=== PATIENT | female | born 1955 | race African-American/Black ===

== ENCOUNTER → 2016-09-28 | Outpatient (CLI) | payer OTHER ==
[2016-05-14 13:23] VITALS: BP 132/78
[2016-09-28 17:24] LABS: EOSINOPHILS # (AUTO) 0.1 x10^3/uL (0.0-0.2); EOSINOPHILS % (AUTO) 1.3 % (0.9-2.9); HEMATOCRIT 43.1 % (36.0-47.0); LYMPHOCYTES # (AUTO) 1.2 X10^3/uL (1.3-2.9); LYMPHOCYTES % (AUTO) 29.9 % (21.0-51.0); MEAN CORPUSCULAR HEMOGLOBIN 29.1 pg (27.0-34.0); MEAN CORPUSCULAR HGB CONC 32.6 g/dL (33.0-35.0); MEAN CORPUSCULAR VOLUME 89.4 fL (80.0-100.0); MEAN PLATELET VOLUME 8.3 fL (7.4-11.0); MONOCYTES # (AUTO) 0.5 x10^3/uL (0.3-0.8); MONOCYTES % (AUTO) 12.8 % (0.0-13.0); NEUTROPHILS # (AUTO) 2.3 x10^3/uL (2.2-4.8); PLATELET COUNT 132 X10^3/uL (150.0-450.0); RED BLOOD COUNT 4.81 X10^6/uL (3.5-5.4); RED CELL DISTRIBUTION WIDTH 16.5 % (11.6-16.5); WHITE BLOOD COUNT 4.1 X10^3/uL (3.6-10.0)
[2016-09-28 17:36] LABS: ALBUMIN 3.2 g/dL (3.4-5.0); BILIRUBIN,DIRECT 0.75 mg/dL (0-0.2); TOTAL PROTEIN 7.4 g/dL (6.4-8.2)
== END ==
LOC: LAB 16:46
PROVIDERS: ATTEND Internal Medicine Gastroenterology
DX: K74.69 Other cirrhosis of liver (principal); B18.2 Chronic viral hepatitis C
CPT/HCPCS: 36415; 80076; 85025

== ENCOUNTER → 2016-12-27 | Outpatient (CLI) | payer OTHER ==
[2016-05-14 13:23] VITALS: BP 132/78
== END ==
LOC: LAB 13:32
PROVIDERS: ATTEND Podiatrist
DX: M85.872 Other specified disorders of bone density and structure, left ankle and foot (principal)
CPT/HCPCS: 36415; 82306; 82652

== ENCOUNTER 2017-01-05 14:43 | Emergency (ER) | payer OTHER ==
[2017-01-05 14:51] VITALS: BP 145/68; BMI 25.3
[2017-01-05] MEDS ORDERED: MORPHINE SULFATE INJ 4 MG IVP ONE (15:08)
[2017-01-05] MEDS ORDERED: PHENERGAN INJ 25 MG IV ONE (15:08)
[2017-01-05] MEDS ORDERED: MORPHINE SULFATE INJ 4 MG ONE (15:13)
[2017-01-05] MEDS ORDERED: PHENERGAN INJ 25 MG ONE (15:13)
--- NOTE | 2017-01-05 15:15 | DR.EXTPAIN ---
HPI - Time seen Time seen: 15:00 - PCP Primary Care Physician: ANUSHA - Complaint/Symptoms Chief Complaint Doctor Comments: Patient unable to get pain medication for surgery done previously Chief Complaint:: PT. HAD A BUNIONECTOMY TO LEFT FOOT LAST TUESDAY PER DR. CHILDRESS. PT. C/O LEFT FOOT PAIN WHICH HAS WORSENED. LEFT FOOT IS WRAPPED WITH KOBAN AND PT. IS WEARING A POST OP BOOT. - Source History Provided: Patient - Mode of arrival Mode of Arrival: EMS - Timing Onset of Chief Complaint: 12/29/16 PMH - PMH Past Medical History: Yes Past Medical History: Anemia, Arthritis, Asthma, Cirrhosis, COPD, GERD Past Surgical History: Yes Surgical History: Hysterectomy, Joint Replacement, Ortho Surgery - Family History History of Family Medical Conditions: Yes Family Medical History: Diabetes Mellitus, Cancer, [place], Heart Failure, Hypertension - Social History Does patient currently use any type of tobacco product: No Have you used tobacco products in the last 12 months: No Type of Tobacco Use: None Does any household member use tobacco: No Alcohol Use: None Do you use any recreational Drugs:: No Lives With: Alone Lives Where: Home - infectious screening In the last 2 months have you had wt loss of >10#?: NO Have you had fever, night sweats or hemotysis?: No Have you traveled outside the country in the last 6 months?: No Isolation: Standard ROS - Review of Systems Eyes: No Symptoms Reported ENTM: No Symptoms Reported Respiratoy: No Symptoms Reported Cardiovascular: No Symptoms Reported Gastrointestinal/Abdominal: No Symptoms Reported Genitourinary: No Symptoms Reported Neurological: No Symptoms Reported Musculoskeletal: Foot (left ) Integumentary: No Symptoms Reported Hematologic/Lymphatic: No Symptoms Reported Endocrine: No Symptoms Reported Psychiatric: No Symptoms Reported All Other Systems: Reviewed and Negative PE - Vital Signs Vitals: Temperature 98.2 F Pulse Rate 75 Respiratory Rate 22 Blood Pressure [Right Arm] 140/67 Blood Pressure [Left Arm] 125/58 Blood Pressure 145/68 O2 Sat by Pulse Oximetry 97 - General General Appearance: Alert, In No Apparent Distress - Head Head Exam: Normal Inspection, Atraumatic - Eyes Eye exam: Normal Appearance, PERRL, EOMI - ENT ENT Exam: Normal Exam - Neck Neck Exam: Normal Inspection, Full ROM - Chest Chest Inspection: Normal Inspection - Respiratory Respiratory Exam: Normal Lung Sounds Bilat Respiratory Exam: Bilateral Clear to Auscultation - Cardiovascular Cardiovascular Exam: Regular Rate, Normal Rhythm - Abdominal Exam Abdominal Exam: Normal Inspection, Normal Bowel Sounds Abdominal Tenderness: negative: RUQ, RLQ, LUQ, LLQ, Epigastrium, Suprapubic, Diffuse, Mild, Moderate, Severe, Other - Extremities Extremities Exam: Normal Inspection - Upper Extremities Shoulder Exam: Normal Inspection Arm Exam: Normal Inspection, Full ROM Elbow Exam: Normal Inspection Forearm Exam: Normal Inspection Hand Exam: Normal Inspection Neuromotor Exam: Normal Exam Neurosensory Exam: Normal Exam Hand Tendon Exam: Flexor Digitorium Profundus (Location) Upper Ext. Vascular Exam: Capillary Refill - Lower Extremities Hip/Pelvis Exam: Normal Inspection Upper Leg Exam: Normal Inspection Knee Exam: Normal Inspection Lower Leg Exam: Normal Inspection Ankle Exam: Normal Inspection Foot/Toe Exam: Normal Inspection Neurovascular/Tendon Exam: Normal Capillary Refill Gait Exam: Observed and Normal - Back Back Exam: Normal Inspection - Neurological Neurological Exam: Alert, Oriented X3, CN II-XII Intact - Skin Skin Exam: Warm, Dry, Intact - Diagnosis Discharge Problem: Acute postoperative pain of foot Qualifiers: Laterality: left Qualified Code(s): M79.672 - Pain in left foot; G89.18 - Other acute postprocedural pain - Discharge Plan Condition: Stable - Follow ups/Referrals Follow ups/Referrals: Jj Butts [Primary Care Provider] - 3 days - Instructions
== END 2017-01-05 15:51 | disposition home or self-care (01) ==
LOC: ER 14:44
DX: M79.672 Pain in left foot (principal); G89.18 Other acute postprocedural pain; Z98.890 Other specified postprocedural states
CPT/HCPCS: 96365; 96374; 96375; 99282; 99283; J2270; J2550

== ENCOUNTER → 2017-01-12 | Outpatient (CLI) | payer OTHER ==
[2017-01-05 14:51] VITALS: BP 145/68
[2017-01-12 09:52] LABS: BASOPHILS # (AUTO) 0.1 X10^3/uL (0.0-0.1); BASOPHILS % (AUTO) 2.3 % (0.2-1.0); EOSINOPHILS # (AUTO) 0.1 x10^3/uL (0.0-0.2); EOSINOPHILS % (AUTO) 2.7 % (0.9-2.9); HEMATOCRIT 40.3 % (36.0-47.0); HEMOGLOBIN 13.4 g/dL (12.0-16.0); LYMPHOCYTES # (AUTO) 1.2 X10^3/uL (1.3-2.9); LYMPHOCYTES % (AUTO) 40.6 % (21.0-51.0); MEAN CORPUSCULAR HGB CONC 33.2 g/dL (33.0-35.0); MEAN CORPUSCULAR VOLUME 90.3 fL (80.0-100.0); MEAN PLATELET VOLUME 8.4 fL (7.4-11.0); MONOCYTES # (AUTO) 0.5 x10^3/uL (0.3-0.8); MONOCYTES % (AUTO) 16.4 % (0.0-13.0); NEUTROPHILS # (AUTO) 1.1 x10^3/uL (2.2-4.8); PLATELET COUNT 142 X10^3/uL (150.0-450.0); RED BLOOD COUNT 4.47 X10^6/uL (3.5-5.4); RED CELL DISTRIBUTION WIDTH 16.1 % (11.6-16.5); WHITE BLOOD COUNT 2.9 X10^3/uL (3.6-10.0)
[2017-01-12 10:20] LABS: ALANINE AMINOTRANSFERASE 55 Units/L (12-78); ALKALINE PHOSPHATASE 147 Units/L (46-116); ASPARTATE AMINO TRANSFERASE 77 Units/L (15-37); BILIRUBIN,DIRECT 0.52 mg/dL (0-0.2); BLOOD UREA NITROGEN 5 mg/dL (7-18); CALCIUM 8.8 mg/dL (8.5-10.1); CHLORIDE 105 mmol/L (98-107); CHOL/HDL RATIO 1.9 (0.0-5.0); CHOLESTEROL 141 mg/dL (0-200); COR CA(FOR HYPOALB) 9.6 mg/dL (8.5-10.1); CREATININE 0.63 mg/dL (0.55-1.02); GLUCOSE 69 mg/dL (65-99); HDL CHOLESTEROL 75 mg/dL (40-60); PHOSPHORUS 3.2 mg/dL (2.6-4.7); SODIUM 141 mmol/L (136-145); TOTAL PROTEIN 7.1 g/dL (6.4-8.2); TRIGLYCERIDES 26 mg/dL (0-150); URIC ACID 1.2 mg/dL (2.6-6.0); eGFR BLACK RACES > 60 (>60); eGFR NON BLACK RACES > 60 (>60)
[2017-01-12 11:05] LABS: ERYTHROCYTE SEDIMENTATION RATE 8 MM/HOUR (0-20)
[2017-01-17 06:45] LABS: METHYLMALONIC ACID 0.12 umol/L (0.00-0.40)
== END ==
LOC: LAB 09:04
PROVIDERS: ATTEND Nurse Practitioner Family
DX: E78.4 Other hyperlipidemia (principal); M10.9 Gout, unspecified; E56.8 Deficiency of other vitamins; K74.69 Other cirrhosis of liver; I10 Essential (primary) hypertension; D53.9 Nutritional anemia, unspecified; Z79.899 Other long term (current) drug therapy
CPT/HCPCS: 36415; 80061; 80069; 80076; 82306; 82607; 83918; 84550; 85025; 85652; 86140

== ENCOUNTER 2017-02-28 12:36 | Emergency (ER) | payer OTHER ==
[2017-02-28 12:48] VITALS: BP 102/63; BMI 24.3
[2017-02-28 13:47] LABS: APPEARANCE,URINE SLIGHTLY HAZY (CLEAR); BACTERIA,URINE Negative /HPF (Negative); COLOR,URINE ORANGE (YELLOW); RBC,URINE NONE SEEN /HPF (NEGATIVE); SQUAMOUS EPITHELIAL CELL,UR RARE /HPF (NEGATIVE)
--- NOTE | 2017-02-28 13:50 | DR.GENAD ---
HPI - PCP Primary Care Physician: MARGOT SORIANO - Complaint/Symptoms Chief Complaint Doctors Comments: I agree with statement Chief Complaint:: KIDNEY INFECTION Self Treatment fo Chief Complaint: PT STATES SHE HAS BEEN HURTING FOR A WHILE. STATES SHE SAW DINAH AND HAS BEEN TAKING BACTRIM SINCE 02/22/17. ALSO HAS BEEN TAKING PHENAZOPYRIDINE HCL 95MG TID - Source History Provided: Patient - Mode of Arrival Mode of Arrival: Ambulatory - Timing Onset of Chief Complaint: 02/28/17 PMH - PMH Past Medical History: Yes Past Medical History: Anemia, Arthritis, Asthma, COPD, GERD Past Surgical History: Yes Surgical History: Hysterectomy, Joint Replacement, Ortho Surgery - Family History History of Family Medical Conditions: Yes Family Medical History: Diabetes Mellitus, Cancer, [place], Heart Failure, Hypertension - Social History Does patient currently use any type of tobacco product: No Have you used tobacco products in the last 12 months: No Type of Tobacco Use: None Does any household member use tobacco: No Alcohol Use: None Do you use any recreational Drugs:: No Lives With: Alone Lives Where: Home - infectious screening In the last 2 months have you had wt loss of >10#?: NO Have you had fever, night sweats or hemotysis?: No Have you traveled outside the country in the last 6 months?: No Isolation: Standard ROS - Review of Systems Eyes: No Symptoms Reported ENTM: No Symptoms Reported Respiratoy: No Symptoms Reported Cardiovascular: No Symptoms Reported Gastrointestinal/Abdominal: No Symptoms Reported Genitourinary: No Symptoms Reported Neurological: No Symptoms Reported Musculoskeletal: No Symptoms Reported Integumentary: No Symptoms Reported Hematologic/Lymphatic: No Symptoms Reported Endocrine: No Symptoms Reported Psychiatric: No Symptoms Reported All Other Systems: Reviewed and Negative PE - Vital Signs Vitals: Temperature 98.7 F Pulse Rate 76 Respiratory Rate 20 Blood Pressure [Right Arm] 140/67 Blood Pressure [Left Arm] 125/58 Blood Pressure 102/63 O2 Sat by Pulse Oximetry 95 - General Limitations: No Limitations General Appearance: Alert, In No Apparent Distress - Head Head Exam: Normal Inspection, Atraumatic - Eyes Eye exam: Normal Appearance, PERRL, EOMI - ENT ENT Exam: Normal Exam External Ear Exam: Normal External Inspection TM/Canal Exam: Bilateral Normal Nose Exam: Normal Nose Exam Mouth Exam: Normal Inspection Throat Exam: Normal Inspection - Neck Neck Exam: Normal Inspection - Chest Chest Inspection: Normal Inspection - Respiratory Respiratory Exam: Normal Lung Sounds Bilat Respiratory Exam: Bilateral Clear to Auscultation - Cardiovascular Cardiovascular Exam: Regular Rate, Normal Rhythm - Abdominal Exam Abdominal Exam: Normal Inspection, Normal Bowel Sounds Abdominal Tenderness: negative: RUQ, RLQ, LUQ, LLQ, Epigastrium, Suprapubic, Diffuse, Mild, Moderate, Severe, Other - Extremities Extremities Exam: Normal Inspection - Back Back Exam: Normal Inspection, Full ROM - Neurologic Neurological Exam: Alert, Oriented X3, CN II-XII Intact - Skin Skin Exam: Warm, Dry, Intact Course - Reevaluation 1st: Improved ROR - Labs Reviewed Laboratory: Specimen Type Clean catch urine 02/28/17 13:26 Urine Color [place] (YELLOW) 02/28/17 13:26 Urine Appearance Slightly hazy (CLEAR) 02/28/17 13:26 Urine RBC None seen /HPF (NEGATIVE) 02/28/17 13:26 Urine WBC Tntc /HPF (NEGATIVE) 02/28/17 13:26 Ur Squamous Epith Cells Rare /HPF (NEGATIVE) 02/28/17 13:26 Urine Bacteria Negative /HPF (Negative) 02/28/17 13:26 Ur Culture Indicated? Yes/culture set up 02/28/17 13:26 Micro UA Comment Unable to perform (-) 02/28/17 13:26 - Diagnosis Discharge Problem: UTI (urinary tract infection) Qualifiers: Urinary tract infection type: acute cystitis Hematuria presence: without hematuria Qualified Code(s): N30.00 - Acute cystitis without hematuria - Discharge Plan Condition: Stable - Follow ups/Referrals Follow ups/Referrals: FABIOLA SORIANO [Primary Care Provider] - 3 days - Instructions
[2017-02-28] MEDS ORDERED: LEVAQUIN PREMIX IV 750 MG 750 MG/150 ML BAG IV ONE ×2 (14:16→14:23)
[2017-02-28] MEDS ORDERED: NS 1000 ML 500 ML IV ONE (14:18)
[2017-02-28] MEDS ORDERED: PYRIDIUM PO ONE ×2 (14:23)
[2017-02-28] MEDS ORDERED: NS 1000 ML 1,000 ML ONE (14:54)
== END 2017-02-28 16:49 | disposition home or self-care (01) ==
LOC: ER 12:58
DX: N30.00 Acute cystitis without hematuria (principal)
CPT/HCPCS: 81015; 87086; 96365; 96367; 96374; 99283; A4222; J1956

== ENCOUNTER 2017-03-02 18:41 | Emergency (ER) | payer OTHER ==
--- NOTE | 2017-03-02 18:52 | DR.GENAD ---
HPI - Complaint/Symptoms Chief Complaint Doctors Comments: Patient presents with to the ED with complaint severe stomach pain onset today just prior to arrival. Pain is sharp 10/10, not aggravated by movement, sharp. PMH - PMH Past Medical History: Anemia, Arthritis, Asthma, COPD, GERD Past Surgical History: Yes Surgical History: Hysterectomy, Joint Replacement, Ortho Surgery - Family History Family Medical History: Diabetes Mellitus, Cancer, [place], Heart Failure, Hypertension - Social History Do you use any recreational Drugs:: No ROS - Review of Systems Eyes: No Symptoms Reported ENTM: No Symptoms Reported Respiratoy: No Symptoms Reported Cardiovascular: No Symptoms Reported Gastrointestinal/Abdominal: Abdominal Pain Genitourinary: No Symptoms Reported Neurological: No Symptoms Reported Musculoskeletal: No Symptoms Reported Integumentary: No Symptoms Reported Hematologic/Lymphatic: No Symptoms Reported Endocrine: No Symptoms Reported Psychiatric: No Symptoms Reported All Other Systems: Reviewed and Negative PE - Vital Signs Vitals: Temperature 98.2 F Pulse Rate 77 Respiratory Rate 20 Blood Pressure [Right Arm] 140/67 Blood Pressure [Left Arm] 125/58 Blood Pressure 130/72 O2 Sat by Pulse Oximetry 97 - General Limitations: No Limitations General Appearance: Alert, In No Apparent Distress - Head Head Exam: Normal Inspection, Atraumatic - Eyes Eye exam: Normal Appearance, PERRL, EOMI - ENT ENT Exam: Normal Exam, Normal Oropharynx External Ear Exam: Normal External Inspection TM/Canal Exam: Bilateral Normal Nose Exam: Normal Nose Exam, Sinus Tenderness Mouth Exam: Normal Inspection Throat Exam: Normal Inspection - Neck Neck Exam: Normal Inspection - Chest Chest Inspection: Normal Inspection - Respiratory Respiratory Exam: Normal Lung Sounds Bilat Respiratory Exam: Bilateral Clear to Auscultation - Cardiovascular Cardiovascular Exam: Regular Rate, Normal Rhythm - Abdominal Exam Abdominal Exam: Normal Inspection, Normal Bowel Sounds Abdominal Tenderness: RLQ - Back Back Exam: (R) CVA Tenderness - Neurologic Neurological Exam: Alert, Oriented X3, CN II-XII Intact - Psychiatric Psychiatric Exam: Normal Affect ROR - Labs Reviewed Laboratory Results Reviewed?: Yes (H pylori positive) Result Diagrams: 03/02/17 19:12 03/02/17 19:12 Laboratory: WBC 6.8 X10^3/uL (3.6-10.0) 03/02/17 19:12 RBC 4.33 X10^6/uL (3.5-5.4) 03/02/17 19:12 Hgb 13.5 g/dL (12.0-16.0) 03/02/17 19:12 Hct 39.2 % (36.0-47.0) 03/02/17 19:12 MCV 90.5 fL (80.0-100.0) 03/02/17 19:12 MCH 31.2 pg (27.0-34.0) 03/02/17 19:12 MCHC 34.4 g/dL (33.0-35.0) 03/02/17 19:12 RDW 15.7 % (11.6-16.5) 03/02/17 19:12 Plt Count 194 X10^3/uL (150.0-450.0) 03/02/17 19:12 MPV 8.7 fL (7.4-11.0) 03/02/17 19:12 Neut % 67.4 % (42.0-75.0) 03/02/17 19:12 Lymph % 17.9 % (21.0-51.0) L 03/02/17 19:12 [place] % 12.6 % (0.0-13.0) 03/02/17 19:12 Eos % 0.9 % (0.9-2.9) 03/02/17 19:12 Baso % 1.2 % (0.2-1.0) H 03/02/17 19:12 Neut # 4.6 x10^3/uL (2.2-4.8) 03/02/17 19:12 Lymph # 1.2 X10^3/uL (1.3-2.9) L 03/02/17 19:12 [place] # 0.9 x10^3/uL (0.3-0.8) H 03/02/17 19:12 Eos # 0.1 x10^3/uL (0.0-0.2) 03/02/17 19:12 Baso # 0.1 X10^3/uL (0.0-0.1) 03/02/17 19:12 Absolute Nucleated RBC 0.0 /100WBC 03/02/17 19:12 Sodium 133 mmol/L (136-145) L 03/02/17 19:12 Corrected Sodium TNP 03/02/17 19:12 Potassium 3.5 mmol/L (3.5-5.1) 03/02/17 19:12 Chloride 98 mmol/L (98-107) 03/02/17 19:12 Carbon Dioxide 25.0 mmol/L (21-32) 03/02/17 19:12 BUN 10 mg/dL (7-18) 03/02/17 19:12 Creatinine 0.77 mg/dL (0.55-1.02) 03/02/17 19:12 Est GFR (MDRD) Af Amer > 60 (>60) 03/02/17 19:12 Est GFR (MDRD) Non-Af > 60 (>60) 03/02/17 19:12 Glucose 82 mg/dL (65-99) 03/02/17 19:12 Calcium 9.4 mg/dL (8.5-10.1) 03/02/17 19:12 Corrected Calcium 10.0 mg/dL (8.5-10.1) 03/02/17 19:12 Total Bilirubin 3.50 mg/dL (0.2-1.0) H 03/02/17 19:12 AST 54 Units/L (15-37) H 03/02/17 19:12 ALT 27 Units/L (12-78) 03/02/17 19:12 Alkaline Phosphatase 135 Units/L (46-116) H 03/02/17 19:12 C-Reactive Protein 29.20 mg/L (0-3.0) H 03/02/17 19:12 Total Protein 7.6 g/dL (6.4-8.2) 03/02/17 19:12 Albumin 3.2 g/dL (3.4-5.0) L 03/02/17 19:12 Globulin 4.4 g/dL (2.5-4.5) 03/02/17 19:12 Albumin/Globulin Ratio 0.7 Ratio (1.1-2.1) L 03/02/17 19:12 Lipase 142 Units/L (73-393) 03/02/17 19:12 H. pylori IgG Antibody Positive (NEGATIVE) A 03/02/17 19:12 - XRAY XRAY Interpreted by: Radiologist (CT: Abdo/pelv:No Ct evidence of acute abdominal/pelvic pathology.2.Constellation of findings representing cirrhosis of the liver and portal hypertension. No significant ascities or obvious liver lesion.) - Diagnosis Discharge Problem: Helicobacter pylori gastritis - Discharge Plan Condition: Good - Follow ups/Referrals Follow ups/Referrals: Jj Butts [Primary Care Provider] - 3 days - Instructions
[2017-03-02 18:54] VITALS: BP 130/72; BMI 22.6
[2017-03-02] MEDS ORDERED: MORPHINE SULFATE INJ 4 MG IVP ONE (18:55)
[2017-03-02] MEDS ORDERED: NS 1000 ML 1,000 ML ONE (18:57)
[2017-03-02] MEDS ORDERED: NS 1000 ML 1,000 ML IV SCH (19:00)
[2017-03-02] MEDS ORDERED: MORPHINE SULFATE INJ 4 MG ONE (19:14)
[2017-03-02 19:20] LABS: BASOPHILS # (AUTO) 0.1 X10^3/uL (0.0-0.1); BASOPHILS % (AUTO) 1.2 % (0.2-1.0); EOSINOPHILS # (AUTO) 0.1 x10^3/uL (0.0-0.2); EOSINOPHILS % (AUTO) 0.9 % (0.9-2.9); HEMATOCRIT 39.2 % (36.0-47.0); HEMOGLOBIN 13.5 g/dL (12.0-16.0); LYMPHOCYTES # (AUTO) 1.2 X10^3/uL (1.3-2.9); LYMPHOCYTES % (AUTO) 17.9 % (21.0-51.0); MEAN CORPUSCULAR HEMOGLOBIN 31.2 pg (27.0-34.0); MEAN CORPUSCULAR HGB CONC 34.4 g/dL (33.0-35.0); MEAN CORPUSCULAR VOLUME 90.5 fL (80.0-100.0); MEAN PLATELET VOLUME 8.7 fL (7.4-11.0); MONOCYTES # (AUTO) 0.9 x10^3/uL (0.3-0.8); MONOCYTES % (AUTO) 12.6 % (0.0-13.0); NEUTROPHILS # (AUTO) 4.6 x10^3/uL (2.2-4.8); NEUTROPHILS % (AUTO) 67.4 % (42.0-75.0); PLATELET COUNT 194 X10^3/uL (150.0-450.0); RED BLOOD COUNT 4.33 X10^6/uL (3.5-5.4); RED CELL DISTRIBUTION WIDTH 15.7 % (11.6-16.5); WHITE BLOOD COUNT 6.8 X10^3/uL (3.6-10.0)
[2017-03-02 19:35] LABS: ALANINE AMINOTRANSFERASE 27 Units/L (12-78); ALBUMIN 3.2 g/dL (3.4-5.0); ALKALINE PHOSPHATASE 135 Units/L (46-116); ASPARTATE AMINO TRANSFERASE 54 Units/L (15-37); BLOOD UREA NITROGEN 10 mg/dL (7-18); CALCIUM 9.4 mg/dL (8.5-10.1); CHLORIDE 98 mmol/L (98-107); CREATININE 0.77 mg/dL (0.55-1.02); LIPASE 142 Units/L (73-393); SODIUM 133 mmol/L (136-145); TOTAL PROTEIN 7.6 g/dL (6.4-8.2); eGFR BLACK RACES > 60 (>60); eGFR NON BLACK RACES > 60 (>60)
[2017-03-02] MEDS ORDERED: MORPHINE SULFATE INJ 2 MG INJ IVP ONE (19:35)
[2017-03-02] MEDS ORDERED: MORPHINE SULFATE INJ 2 MG INJ ONE (19:38)
[2017-03-02] MEDS ORDERED: NS 100 ML IV 100 ML IV ONE (20:26)
--- NOTE | 2017-03-02 21:37 | CT ---
HISTORY: Abdominal pain. Study: CT abdomen and pelvis with contrast Comparison: CT abdomen/pelvis dated June 13, 2015. Technique: Multiple axial images of the abdomen and pelvis were obtained from the lung bases to the pubic symphy sis after the administration of IV contrast. Dose reduction techniques including Automated Exposure Control (AEC) and adjustment of mA and kV were utilized. Findings: Limited study secondary to lack of oral contrast. Bibasilar scarring versus atelectasis. Otherwise, the visualized portions of the lung bases are unrem arkable. Cirrhotic appearance of the liver is again seen. No obvious liver masses. Recannulization o f the umbilical vein. Multiple esophageal, gastric, and splenorenal varices. No obvious ascites. Smal l hiatal hernia. The gallbladder is surgically absent. The spleen, pancreas, adrenals, and kidneys ap pear normal. Large fat containing ventral hernia appears unchanged. No significant mesenteric lympha denopathy or stranding can be observed. No free fluid or free air is seen within the abdomen. Limit ed evaluation of the large and small bowel secondary to lack of oral contrast and collapse. The large and small bowel are otherwise unremarkable. The appendix is not well seen. The uterus and ovaries a ppear surgically absent. Limited evaluation of the pelvis secondary to bilateral hip arthroplasties. The visualized bladder is otherwise unremarkable. Moderate to severe atherosclerotic vascular calcif ications without evidence of aneurysmal dilatation. The visualized arthroplasties appear intact. The osseous structures appear unchanged given technique. IMPRESSION: 1. No CT evidence of acute abdominal/pelvic pathology. 2. Constellation of findings representing cirrhosis of the liver and portal hypertension. No signific ant ascites or obvious liver lesions. 3. Other chronic findings as above. Reported By:
== END 2017-03-02 22:22 | disposition home or self-care (01) ==
LOC: ER 18:45
DX: R10.31 Right lower quadrant pain (principal); B96.81 Helicobacter pylori [H. pylori] as the cause of diseases classified elsewhere
CPT/HCPCS: 36415; 74177; 80053; 83690; 85025; 86140; 86677; 96365; 96367; 96374; 96375; 99283; A4222; J2270

== ENCOUNTER 2017-03-05 10:43 | Inpatient (IN) | payer OTHER ==
[2017-03-05 10:56] VITALS: BMI 23.2
[2017-03-05] MEDS ORDERED: NS 1000 ML 1,000 ML IV ONE (11:14)
[2017-03-05] MEDS ORDERED: ZOFRAN INJ 4 MG VIAL IVP ONE (11:14)
[2017-03-05] MEDS ORDERED: MORPHINE SULFATE INJ 2 MG INJ IVP ONE (11:14)
--- NOTE | 2017-03-05 11:16 | DR.GENAD ---
HPI - PCP Primary Care Physician: ZURDO - Complaint/Symptoms Chief Complaint Doctors Comments: Patient complains of severe stomach pain with nausea, vomiting for the past five days getting worst today. She denies fever, chills, diarrhea or hematuria. States she is having left sided neck pain but her left shoulder is not hurting. States she is taking chemotherapy but she does not know wh she is taking it. She is unsure when she had her last bowel movement. States she is unable to keep anything down. She denies SOB or chest pain. Chief Complaint:: PT C/O SEVERE ABD PAIN WITH N/V. PT ALSO STATES SHE IS HAVING PAIN IN HER LT SHOULDER. PT STATES IT HAS BEEN GOING ON SINCE TUESDAY - Nurses notes reviewed Nurses Notes Review: Yes - Source History Provided: Patient, EMS - Mode of Arrival Mode of Arrival: EMS - Timing Onset of Chief Complaint: 02/28/17 Came on: Gradually - Duration Duration: Constant How lon Duration: Days - Location Location: diffuse abdominal pain - Severity Severity: Severe - Modifying Factors Worsens:: nothing Improves:: nothing PMH - PMH Past Medical History: Yes Past Medical History: Anemia, Arthritis, Asthma, COPD, GERD Past Surgical History: Yes Surgical History: Hysterectomy, Joint Replacement, Ortho Surgery - Family History History of Family Medical Conditions: Yes Family Medical History: Diabetes Mellitus, Cancer, [place], Heart Failure, Hypertension - Social History Does any household member use tobacco: No Alcohol Use: None Do you use any recreational Drugs:: No Lives With: Alone Lives Where: Home - infectious screening In the last 2 months have you had wt loss of >10#?: NO Have you had fever, night sweats or hemotysis?: No Have you traveled outside the country in the last 6 months?: No Isolation: Standard ROS - Review of Systems Constitutional: No Symptoms Reported, Weakness, Loss of Appetite. negative: See HPI, Chills, Diaphoresis, Fever, Malaise, Irritable, Fatigue, Other Eyes: No Symptoms Reported ENTM: No Symptoms Reported Respiratoy: No Symptoms Reported. negative: See HPI, Productive Cough, Non- Productive Cough, Moist Cough, Dry Cough, Hacking Cough, Barking Cough, Brassy Cough, Orthopnea, Short of Breath, Stridor, Wheezing, Hemoptysis, Other Cardiovascular: No Symptoms Reported, Palpitations. negative: See HPI, Chest Pain, Edema, Syncope, Cyanosis, Skin Mottling, Other Gastrointestinal/Abdominal: Abdominal Pain, Nausea, Vomiting. negative: No Symptoms Reported, See HPI, Constipation, Diarrhea, Food Intolerance, Other Genitourinary: No Symptoms Reported Neurological: No Symptoms Reported Musculoskeletal: No Symptoms Reported, Left, Neck Integumentary: No Symptoms Reported Hematologic/Lymphatic: No Symptoms Reported Endocrine: No Symptoms Reported, Decreased Appetite Psychiatric: No Symptoms Reported, Anxiety PE - Vital Signs Vitals: Temperature 99.1 F Pulse Rate 73 Respiratory Rate 20 Blood Pressure [Right Arm] 140/67 Blood Pressure [Left Arm] 125/58 Blood Pressure 119/55 O2 Sat by Pulse Oximetry 96 - General Limitations: No Limitations General Appearance: Alert, Anxious, In Distress (moderate) - Head Head Exam: Normal Inspection, Atraumatic, Normocephalic - Eyes Eye exam: Normal Appearance, PERRL, EOMI. negative: Scleral Icterus, Conjunctival Injection, Nystagmus, Miosis, Mydrasis, Periorbital Swelling, Periorbital Tenderness, Other - ENT ENT Exam: Normal Exam, Normal Oropharynx, Normal External Ear Exam, Mucous Membranes Moist, TM's Normal Bilaterally TM/Canal Exam: Bilateral Normal Nose Exam: Normal Nose Exam Mouth Exam: Normal Inspection Throat Exam: Normal Inspection - Neck Neck Exam: Normal Inspection, Full ROM, Trachea Midline, Tenderness (left lateral neck tenderness and tight musles; no swelling or erythema) - Chest Chest Inspection: Normal Inspection, Symmetric Chest Wall Rise - Respiratory Respiratory Exam: Normal Lung Sounds Bilat Respiratory Exam: Bilateral Clear to Auscultation - Cardiovascular Cardiovascular Exam: Regular Rate, Normal Rhythm, Tachycardia, Normal Heart Sounds, Systolic Murmur - Abdominal Exam Abdominal Exam: Normal Inspection, Normal Bowel Sounds, Soft, Tenderness, Guarding, Dimnished Bowel Sounds (ventral hernia; tender) Abdominal Tenderness: Epigastrium, Suprapubic, Moderate - Extremities Extremities Exam: Normal Inspection, Full ROM, Normal Capillary Refill. negative: Tenderness, Edema, Joint Swelling, Calf Tenderness, Other - Back Back Exam: Normal Inspection, Full ROM - Neurologic Neurological Exam: Alert, Oriented X3, CN II-XII Intact, Reflexes Normal. negative: Normal Gait (gait not tested) - Psychiatric Psychiatric Exam: Normal Affect, Normal Mood, Agitated, Anxious - Skin Skin Exam: Warm, Dry, Intact, Normal Color ROR - Labs Reviewed Laboratory Results Reviewed?: Yes (all labs and x-ray results reviewed and discussed with patient) Result Diagrams: 03/05/17 11:40 03/05/17 11:40 Laboratory: WBC 7.7 X10^3/uL (3.6-10.0) 03/05/17 11:40 RBC 4.08 X10^6/uL (3.5-5.4) 03/05/17 11:40 Hgb 12.7 g/dL (12.0-16.0) 03/05/17 11:40 Hct 37.9 % (36.0-47.0) 03/05/17 11:40 MCV 92.8 fL (80.0-100.0) 03/05/17 11:40 MCH 31.0 pg (27.0-34.0) 03/05/17 11:40 MCHC 33.4 g/dL (33.0-35.0) 03/05/17 11:40 RDW 17.1 % (11.6-16.5) H 03/05/17 11:40 Plt Count 140 X10^3/uL (150.0-450.0) L 03/05/17 11:40 MPV 8.5 fL (7.4-11.0) 03/05/17 11:40 Neut % 73.1 % (42.0-75.0) 03/05/17 11:40 Lymph % 11.9 % (21.0-51.0) L 03/05/17 11:40 [place] % 14.0 % (0.0-13.0) H 03/05/17 11:40 Eos % 0.4 % (0.9-2.9) L 03/05/17 11:40 Baso % 0.6 % (0.2-1.0) 03/05/17 11:40 Neut # 5.7 x10^3/uL (2.2-4.8) H 03/05/17 11:40 Lymph # 0.9 X10^3/uL (1.3-2.9) L 03/05/17 11:40 [place] # 1.1 x10^3/uL (0.3-0.8) H 03/05/17 11:40 Eos # 0.0 x10^3/uL (0.0-0.2) 03/05/17 11:40 Baso # 0.0 X10^3/uL (0.0-0.1) 03/05/17 11:40 Absolute Nucleated RBC 0.1 /100WBC 03/05/17 11:40 INR Target Range - 03/05/17 11:40 INR 1.23 (0.8-1.3) 03/05/17 11:40 PTT 27.9 SECONDS (22.9-36.5) 03/05/17 11:40 PTT Comment - 03/05/17 11:40 Sodium 139 mmol/L (136-145) 03/05/17 11:40 Corrected Sodium TNP 03/05/17 11:40 Potassium 3.3 mmol/L (3.5-5.1) L 03/05/17 11:40 Chloride 104 mmol/L (98-107) 03/05/17 11:40 Carbon Dioxide 27.1 mmol/L (21-32) 03/05/17 11:40 BUN 11 mg/dL (7-18) 03/05/17 11:40 Creatinine 0.93 mg/dL (0.55-1.02) 03/05/17 11:40 Est GFR (MDRD) Af Amer > 60 (>60) 03/05/17 11:40 Est GFR (MDRD) Non-Af > 60 (>60) 03/05/17 11:40 Glucose 95 mg/dL (65-99) 03/05/17 11:40 Calcium 9.6 mg/dL (8.5-10.1) 03/05/17 11:40 Corrected Calcium 10.5 mg/dL (8.5-10.1) H 03/05/17 11:40 Magnesium 1.7 mg/dL (1.7-2.9) 03/05/17 11:40 Total Bilirubin 2.50 mg/dL (0.2-1.0) H 03/05/17 11:40 AST 35 Units/L (15-37) 03/05/17 11:40 ALT 22 Units/L (12-78) 03/05/17 11:40 Alkaline Phosphatase 115 Units/L (46-116) 03/05/17 11:40 Creatine Kinase 36 Units/L (26-192) 03/05/17 11:40 CK-MB (CK-2) < 1.0 ng/mL (0-4.0) 03/05/17 11:40 CK/CKMB % Calc 2.8 % (<4) 03/05/17 11:40 Troponin I < 0.02 ng/mL (0-1.5) 03/05/17 11:40 Total Protein 6.7 g/dL (6.4-8.2) 03/05/17 11:40 Albumin 2.9 g/dL (3.4-5.0) L 03/05/17 11:40 Globulin 3.8 g/dL (2.5-4.5) 03/05/17 11:40 Albumin/Globulin Ratio 0.8 Ratio (1.1-2.1) L 03/05/17 11:40 Amylase 109 Units/L (25-115) 03/05/17 11:40 Lipase 165 Units/L (73-393) 03/05/17 11:40 - XRAY XRAY Interpreted by: Radiologist (CT abdomen: Mod fat containing ventral hernia w/mild haziness of herniated mesenteric fat representing developing omental infarct/ischemia. Cirrhos w. splenomegaly consistent with portal hypertension) - Diagnosis Discharge Problem: Intractable abdominal pain, Prob Omental infarct/ischemia, Hypokalemia, Cirrhosis, Portal venous hypertension - Discharge Plan Disposition: ADMITTED INPATIENT Condition: Stable - Follow ups/Referrals Follow ups/Referrals: THIAGO RENNER [Primary Care Provider] - 3 days - Instructions
[2017-03-05] MEDS ORDERED: MORPHINE SULFATE INJ 2 MG INJ ONE (11:36)
[2017-03-05] MEDS ORDERED: NS 1000 ML 1,000 ML ONE (11:36)
[2017-03-05] MEDS ORDERED: ZOFRAN INJ 4 MG VIAL ONE (11:36)
[2017-03-05 11:46] LABS: BASOPHILS % (AUTO) 0.6 % (0.2-1.0); EOSINOPHILS % (AUTO) 0.4 % (0.9-2.9); HEMATOCRIT 37.9 % (36.0-47.0); HEMOGLOBIN 12.7 g/dL (12.0-16.0); LYMPHOCYTES # (AUTO) 0.9 X10^3/uL (1.3-2.9); LYMPHOCYTES % (AUTO) 11.9 % (21.0-51.0); MEAN CORPUSCULAR HGB CONC 33.4 g/dL (33.0-35.0); MEAN CORPUSCULAR VOLUME 92.8 fL (80.0-100.0); MEAN PLATELET VOLUME 8.5 fL (7.4-11.0); MONOCYTES # (AUTO) 1.1 x10^3/uL (0.3-0.8); NEUTROPHILS # (AUTO) 5.7 x10^3/uL (2.2-4.8); NEUTROPHILS % (AUTO) 73.1 % (42.0-75.0); PLATELET COUNT 140 X10^3/uL (150.0-450.0); RED BLOOD COUNT 4.08 X10^6/uL (3.5-5.4); RED CELL DISTRIBUTION WIDTH 17.1 % (11.6-16.5); WHITE BLOOD COUNT 7.7 X10^3/uL (3.6-10.0)
[2017-03-05] MEDS ORDERED: REGLAN INJ 10 MG VIAL IVP STA (11:55)
[2017-03-05] MEDS ORDERED: REGLAN INJ 10 MG VIAL ONE (12:04)
[2017-03-05 12:12] LABS: BLOOD UREA NITROGEN 11 mg/dL (7-18); CALCIUM 9.6 mg/dL (8.5-10.1); CARBON DIOXIDE 27.1 mmol/L (21-32); CHLORIDE 104 mmol/L (98-107); CREATININE 0.93 mg/dL (0.55-1.02); SODIUM 139 mmol/L (136-145); TROPONIN I < 0.02 ng/mL (0-1.5); eGFR BLACK RACES > 60 (>60); eGFR NON BLACK RACES > 60 (>60)
[2017-03-05 12:17] LABS: ALANINE AMINOTRANSFERASE 22 Units/L (12-78); ALBUMIN 2.9 g/dL (3.4-5.0); ALKALINE PHOSPHATASE 115 Units/L (46-116); AMYLASE 109 Units/L (25-115); ASPARTATE AMINO TRANSFERASE 35 Units/L (15-37); CKMB % 2.8 % (<4); COR CA(FOR HYPOALB) 10.5 mg/dL (8.5-10.1); CREATINE KINASE 36 Units/L (26-192); CREATINE KINASE MB < 1.0 ng/mL (0-4.0); LIPASE 165 Units/L (73-393); MAGNESIUM 1.7 mg/dL (1.7-2.9); TOTAL PROTEIN 6.7 g/dL (6.4-8.2)
--- NOTE | 2017-03-05 13:06 | CT ---
CT abdomen and pelvis without contrast Indication: nausea, vomiting and mid abdominal pain Comparison: 03/02/2017 Technique: Multiple axial images of the abdomen and pelvis were obtained from the lung bases to the pubic symphy sis without the administration of IV contrast. Radiation dose reduction techniques were performed utilizing adjustment for MA/kVP based on patient body size. Findings: The the lung bases demonstrate atelectasis/scarring within the right middle lobe. No focal airspace o pacity or pleural effusion. The liver demonstrates cirrhosis, given the limitations of a noncontrast examination no focal hepatic lesion identified. Previous cholecystectomy is noted. The spleen is mild ly enlarged. The pancreas and adrenal glands are unremarkable. There are multiple varices surrounding the left adrenal gland. Neither kidney demonstrates evidence of nephrolithiasis, hydronephrosis or m ass. Upper GI tract demonstrates no evidence of mass or obstruction. The pelvis is limited in its visualization given beam hardening artifact and metallic streak artifact from bilateral hip replacements. The rectum demonstrates increased fecal material. The visualized co erick demonstrates no evidence of mass, obstruction or bowel wall thickening. The appendix is normal. N o significant pelvic free fluid identified. Abdominal aorta is normal in caliber with dense calcified atherosclerotic disease. Moderate size fat containing ventral abdominal hernia containing mild fat h aziness suggesting potential omental ischemia/infarction. There is also haziness and shoddy lymph nod es noted within the central mesenteric fat all some suspicious for mesenteric lymphadenitis. No new o sseous abnormality identified. Impression: 1. Moderate sized fat containing ventral abdominal hernia containing mild haziness of the herniated m esenteric fat potentially representing developing omental infarct/ischemia and source of abdominal pa in . Additionally there is haziness of the central mesenteric fat and shoddy lymph nodes which can be seen in the setting of acute mesenteric lymphadenitis and may also represent a source of mid abdomin al pain . 2. Cirrhosis with splenomegaly consistent with portal venous hypertension . Multiple enlarged perispl enic and adrenal varices are present . No ascites at this time . 3. Refer to above for other stable , incidental findings. Reported By:
--- NOTE | 2017-03-05 13:57 | RAD ---
AP Chest Indication: Chest pain Comparison: 05/14/2016 Findings: The trachea is midline. The cardiac silhouette is unremarkable. Moderate calcified atherosclerotic d isease of the aortic arch. There is no change in scarring within the left midlung. No new airspace opacity, pleural effusion or pneumothorax. No acute osseous abnormality. IMPRESSION: 1. No acute cardiopulmonary abnormality. Reported By:
[2017-03-05] MEDS ORDERED: ZOFRAN INJ 4 MG VIAL IVP PRN (15:27)
[2017-03-05] MEDS: D5 1/2 NS 1000 ML 1,000 ML IV SCH (17:36)
[2017-03-05] MEDS: MORPHINE SULFATE INJ 2 MG INJ IVP PRN ×2 (19:30→23:33)
[2017-03-05] MEDS: PEPCID 20 MG IV PREMIX* 20 MG/50 ML BAG IV PRN (19:31)
[2017-03-05] MEDS: PHENERGAN INJ 25 MG IV PRN (23:34)
[2017-03-06] MEDS: D5 1/2 NS 1000 ML 1,000 ML IV SCH ×3 (04:38→13:13)
[2017-03-06 06:12] LABS: BASOPHILS % (AUTO) 0.6 % (0.2-1.0); HEMATOCRIT 34.1 % (36.0-47.0); HEMOGLOBIN 11.4 g/dL (12.0-16.0); LYMPHOCYTES % (AUTO) 19.7 % (21.0-51.0); MEAN CORPUSCULAR HEMOGLOBIN 31.2 pg (27.0-34.0); MEAN CORPUSCULAR HGB CONC 33.5 g/dL (33.0-35.0); MEAN CORPUSCULAR VOLUME 93.1 fL (80.0-100.0); MEAN PLATELET VOLUME 8.6 fL (7.4-11.0); MONOCYTES # (AUTO) 0.7 x10^3/uL (0.3-0.8); MONOCYTES % (AUTO) 14.8 % (0.0-13.0); NEUTROPHILS # (AUTO) 3.1 x10^3/uL (2.2-4.8); NEUTROPHILS % (AUTO) 63.9 % (42.0-75.0); PLATELET COUNT 123 X10^3/uL (150.0-450.0); RED BLOOD COUNT 3.66 X10^6/uL (3.5-5.4); RED CELL DISTRIBUTION WIDTH 16.9 % (11.6-16.5); WHITE BLOOD COUNT 4.9 X10^3/uL (3.6-10.0)
[2017-03-06 06:24] LABS: BLOOD UREA NITROGEN 6 mg/dL (7-18); CALCIUM 8.5 mg/dL (8.5-10.1); CARBON DIOXIDE 24.3 mmol/L (21-32); CHLORIDE 109 mmol/L (98-107); CREATININE 0.69 mg/dL (0.55-1.02); SODIUM 141 mmol/L (136-145); eGFR BLACK RACES > 60 (>60); eGFR NON BLACK RACES > 60 (>60)
[2017-03-06] MEDS: MORPHINE SULFATE INJ 2 MG INJ IVP PRN ×4 (06:29→23:35)
[2017-03-06] MEDS: PEPCID 20 MG IV PREMIX* 20 MG/50 ML BAG IV PRN (11:07)
[2017-03-06] MEDS ORDERED: K-DUR TAB 20 MEQ PO PRN (13:05)
[2017-03-06] MEDS ORDERED: K-LYTE EFFERVESCENT PO PRN (13:05)
[2017-03-06] MEDS ORDERED: POTASSIUM CHLORIDE LIQ 20 MEQ UDC PO PRN (13:05)
[2017-03-06] MEDS ORDERED: K-RIDER 10 MEQ/NS 100 ML 10 MEQ/100 ML BAG IV PRN (13:05)
[2017-03-06] MEDS ORDERED: FENTANYL INJ 250 mcg ONE (13:30)
[2017-03-06] MEDS ORDERED: ANCEF VIAL 1 GM ONE (14:06)
[2017-03-06] MEDS ORDERED: LR 1000 ML IV 1,000 ML IV ONE (14:06)
[2017-03-06] MEDS ORDERED: NS 50 ML IV + SPIKE MINIBAG* 50 ML IV ONE (14:06)
[2017-03-06] MEDS ORDERED: MARCAINE 0.25% INJ ONE (14:06)
[2017-03-06] MEDS ORDERED: XYLOCAINE 1% and EPINEPHRINE 1:100,000 ONE (14:06)
[2017-03-06] MEDS ORDERED: NS IRRIGATION 1000 ML 1,000 ML IR ONE (15:10)
[2017-03-06] MEDS: ZOSYN VIAL 4.5 GM IV SCH ×2 (15:51→23:35)
[2017-03-06] MEDS: DILAUDID INJ IVP PRN ×4 (15:51→16:11)
[2017-03-06] MEDS ORDERED: DILAUDID INJ ONE (15:54)
[2017-03-06] MEDS ORDERED: REGLAN INJ 10 MG VIAL IVP PRN (16:00)
[2017-03-06] MEDS ORDERED: ZOFRAN INJ 4 MG VIAL IVP PRN (16:00)
[2017-03-06] MEDS ORDERED: BENADRYL INJ 50 MG VIAL IVP PRN (16:00)
[2017-03-06] MEDS ORDERED: PHENERGAN INJ 25 MG IVP PRN (16:00)
--- NOTE | 2017-03-06 16:10 | OR.GENERIC ---
Post-Op Note Generic - Post-Op Note Operative Report: Operative Report Date of Operation: March 06, 2017 Pre-Operative Diagnosis: Incarcerated incisional hernia. Post-Operative Diagnosis: Incarcerated incisional hernia. Procedure: Open incisional hernia repair with overlay mesh (Ventralex 6.4 cm) and omentectomy. Surgeon: Sy Archer MD [employer] Teacher: Satish Stokes CRNA Specimens: None. Estimated blood loss: Minimal Complications: None Summary: The patient is a 61 yo F who presented with an incarcerated incisional hernia. The patient was offered incisional hernia repair. The risk and benefits of the procedure including difficulty with anesthesia, bleeding, infection, injury to intraabdominal contents requiring further surgery, recurrence, DVT, as well as PE were discussed with the patient. The patient understood these risks and requested the procedure. On March 06, 2017, the patient was brought to the operative theatre. A time out was performed verifying the patient and procedure. The patient received Ancef for pre-operative antibiosis. After satisfactory induction of general endotracheal anesthesia, the abdomen was prepped with Chloraprep and draped in the usual sterile fashion. The skin was incised sharply in the midline over the incarcerated hernia. The incision was slowly carried through the dermis sharply until the hernia sac was encountered. The hernia sac was elevated and opened sharply. The remaining dermis and hernia sac was opened over the surgeons finger using electrocautery. A large component of the omentum was seen in the incarcerated hernia. This could not be reduced into the peritoneal cavity. Therefore, the omentum was divided between vicryl ties and reduced into the peritoneal cavity. The hernia sac was then cleared from the fascia circumferentially. The fascial defect measured approximately 4 x 2 cm. The fascia was re-approximated using interrupted #2 Ethibond sutures. A piece of Ventralex (6.4 cm diameter) mesh was placed in an overlay fashion and sutured to the fascia using 2-0 Ethibond sutures. The wound was irrigated. Bleeding was controlled using electrocautery. The dermis was re-approximated using inverted, interrupted 3-0 Vicryl sutures. The skin edges were re- approximated using skin pattie. A sterile dressing was placed. The patient was awakened and taken to the recovery room in stable condition. There were no complications. All counts were correct.
[2017-03-06] MEDS ORDERED: NS 100 ML IV + SPIKE MINIBAG* 100 ML IV ONE (23:32)
[2017-03-07] MEDS: NORCO 5/325 MG TAB PO PRN ×2 (02:33→07:15)
[2017-03-07] MEDS ORDERED: NS 100 ML IV + SPIKE MINIBAG* 100 ML IV ONE ×3 (05:23→20:51)
[2017-03-07] MEDS: MORPHINE SULFATE INJ 2 MG INJ IVP PRN ×4 (05:35→23:30)
[2017-03-07] MEDS: ZOSYN VIAL 4.5 GM IV SCH ×3 (05:36→21:06)
[2017-03-07 06:20] LABS: BASOPHILS % (AUTO) 0.4 % (0.2-1.0); EOSINOPHILS % (AUTO) 0.5 % (0.9-2.9); HEMATOCRIT 36.2 % (36.0-47.0); HEMOGLOBIN 12.1 g/dL (12.0-16.0); LYMPHOCYTES # (AUTO) 0.6 X10^3/uL (1.3-2.9); LYMPHOCYTES % (AUTO) 8.4 % (21.0-51.0); MEAN CORPUSCULAR HEMOGLOBIN 31.4 pg (27.0-34.0); MEAN CORPUSCULAR HGB CONC 33.3 g/dL (33.0-35.0); MEAN CORPUSCULAR VOLUME 94.4 fL (80.0-100.0); MEAN PLATELET VOLUME 8.3 fL (7.4-11.0); MONOCYTES % (AUTO) 14.9 % (0.0-13.0); NEUTROPHILS % (AUTO) 75.8 % (42.0-75.0); PLATELET COUNT 115 X10^3/uL (150.0-450.0); RED BLOOD COUNT 3.84 X10^6/uL (3.5-5.4); RED CELL DISTRIBUTION WIDTH 17.9 % (11.6-16.5); WHITE BLOOD COUNT 6.6 X10^3/uL (3.6-10.0)
[2017-03-07 06:29] LABS: ALANINE AMINOTRANSFERASE 18 Units/L (12-78); ALBUMIN 2.4 g/dL (3.4-5.0); ALKALINE PHOSPHATASE 90 Units/L (46-116); ASPARTATE AMINO TRANSFERASE 30 Units/L (15-37); BLOOD UREA NITROGEN 5 mg/dL (7-18); CALCIUM 8.9 mg/dL (8.5-10.1); CARBON DIOXIDE 25.9 mmol/L (21-32); CHLORIDE 109 mmol/L (98-107); COR CA(FOR HYPOALB) 10.2 mg/dL (8.5-10.1); CREATININE 0.68 mg/dL (0.55-1.02); SODIUM 140 mmol/L (136-145); TOTAL PROTEIN 5.7 g/dL (6.4-8.2); eGFR BLACK RACES > 60 (>60); eGFR NON BLACK RACES > 60 (>60)
[2017-03-07] MEDS: PHENERGAN INJ 25 MG IV PRN (19:26)
[2017-03-08] MEDS: NORCO 5/325 MG TAB PO PRN ×3 (04:03→20:22)
[2017-03-08] MEDS ORDERED: NS 100 ML IV + SPIKE MINIBAG* 100 ML IV ONE ×3 (05:10→20:00)
[2017-03-08] MEDS: ZOSYN VIAL 4.5 GM IV SCH ×3 (05:19→21:30)
[2017-03-08 05:30] LABS: ALANINE AMINOTRANSFERASE 20 Units/L (12-78); ALBUMIN 2.3 g/dL (3.4-5.0); ALKALINE PHOSPHATASE 88 Units/L (46-116); ASPARTATE AMINO TRANSFERASE 32 Units/L (15-37); BLOOD UREA NITROGEN 4 mg/dL (7-18); CALCIUM 8.5 mg/dL (8.5-10.1); CARBON DIOXIDE 26.6 mmol/L (21-32); CHLORIDE 107 mmol/L (98-107); COR CA(FOR HYPOALB) 9.9 mg/dL (8.5-10.1); CREATININE 0.62 mg/dL (0.55-1.02); SODIUM 140 mmol/L (136-145); TOTAL PROTEIN 5.5 g/dL (6.4-8.2); eGFR BLACK RACES > 60 (>60); eGFR NON BLACK RACES > 60 (>60)
[2017-03-08 06:03] LABS: BASOPHILS % (AUTO) 0.6 % (0.2-1.0); EOSINOPHILS # (AUTO) 0.1 x10^3/uL (0.0-0.2); EOSINOPHILS % (AUTO) 1.8 % (0.9-2.9); HEMATOCRIT 32.1 % (36.0-47.0); HEMOGLOBIN 10.7 g/dL (12.0-16.0); LYMPHOCYTES # (AUTO) 0.7 X10^3/uL (1.3-2.9); LYMPHOCYTES % (AUTO) 11.4 % (21.0-51.0); MEAN CORPUSCULAR HEMOGLOBIN 31.6 pg (27.0-34.0); MEAN CORPUSCULAR HGB CONC 33.3 g/dL (33.0-35.0); MEAN CORPUSCULAR VOLUME 94.8 fL (80.0-100.0); MEAN PLATELET VOLUME 8.5 fL (7.4-11.0); MONOCYTES % (AUTO) 17.2 % (0.0-13.0); NEUTROPHILS # (AUTO) 4.2 x10^3/uL (2.2-4.8); PLATELET COUNT 102 X10^3/uL (150.0-450.0); RED BLOOD COUNT 3.38 X10^6/uL (3.5-5.4)
[2017-03-08 06:55] LABS: BAND NEUTROPHILS % 2 % (0-10)
[2017-03-08 06:56] LABS: PLATELET MORPHOLOGY COMMENT NORMAL (NORMAL)
--- NOTE | 2017-03-08 13:28 | PCM.PROG ---
Progress Note - Progress Note for Day of Date: 03/08/17 - Subjective Subjective: patient is a 61-year-old black female who is status post ventral hernia repair per Dr. Archer. Patient continues to complain of postoperative pain. Otherwise denies any new complaints. Discussed possible rehabilitation therapy since patient has no caregiver at home. We'll consult case management patient is compliant with plan of care. - Past Medical Family Social History Past Med/Fam/Surg Hx: No changes since H&P Allergies: Allergies aspirin Allergy (Verified 03/02/17 19:29) ibuprofen Allergy (Verified 03/02/17 19:29) - Review of Systems ROS: No change since H&P - Vital Signs and I&O's Vital Signs: Temperature 98.2 F Pulse Rate [Left Brachial] 65 Pulse Rate 74 Respiratory Rate 22 Blood Pressure [Right Arm] 104/61 Blood Pressure [Left Arm] 108/56 Blood Pressure 138/71 O2 Sat by Pulse Oximetry 95 Intake and Output: Intake & Output 03/06/17 03/07/17 03/08/17 03/09/17 11:59 11:59 11:59 11:59 Intake Total 2140 1403 1626 Output Total 1000 600 Balance 2140 403 1026 - Physical Exam Oriented: Normal Eyes: Normal Ear: Normal Nose: Normal, Injected Respiratory: Diminished Cardiovascular: Normal : Normal Auscultation: Bowel Sounds: Normal Palpation: Normal Tenderness: Diffuse (post operative pain, or) Skin: Decreased Turgur, Wound (surgical wound to upper abd, clean intact abd pad ) Musculoskeletal: Back:Thoracic, Back:Lumbar Mood Description: Calm Speech Pattern: Clear, Appropriate - Laboratory and Diagnostics Result Diagrams: 03/08/17 05:44 03/08/17 03:53 Labs: Laboratory WBC 6.0 X10^3/uL (3.6-10.0) 03/08/17 05:44 RBC 3.38 X10^6/uL (3.5-5.4) L 03/08/17 05:44 Hgb 10.7 g/dL (12.0-16.0) L 03/08/17 05:44 Hct 32.1 % (36.0-47.0) L 03/08/17 05:44 MCV 94.8 fL (80.0-100.0) 03/08/17 05:44 MCH 31.6 pg (27.0-34.0) 03/08/17 05:44 MCHC 33.3 g/dL (33.0-35.0) 03/08/17 05:44 RDW 18.0 % (11.6-16.5) H 03/08/17 05:44 Plt Count 102 X10^3/uL (150.0-450.0) L 03/08/17 05:44 Plt Count Comment Decreased (ADEQUATE) A 03/08/17 05:44 MPV 8.5 fL (7.4-11.0) 03/08/17 05:44 Neut % 69.0 % (42.0-75.0) 03/08/17 05:44 Lymph % 11.4 % (21.0-51.0) L 03/08/17 05:44 [place] % 17.2 % (0.0-13.0) H 03/08/17 05:44 Eos % 1.8 % (0.9-2.9) 03/08/17 05:44 Baso % 0.6 % (0.2-1.0) 03/08/17 05:44 Neut # 4.2 x10^3/uL (2.2-4.8) 03/08/17 05:44 Lymph # 0.7 X10^3/uL (1.3-2.9) L 03/08/17 05:44 [place] # 1.0 x10^3/uL (0.3-0.8) H 03/08/17 05:44 Eos # 0.1 x10^3/uL (0.0-0.2) 03/08/17 05:44 Baso # 0.0 X10^3/uL (0.0-0.1) 03/08/17 05:44 Absolute Nucleated RBC 0.1 /100WBC 03/08/17 05:44 Total Counted 100 03/08/17 05:44 Neutrophils % (Manual) 74 % (39-76) 03/08/17 05:44 Band Neutrophils % 2 % (0-10) 03/08/17 05:44 Lymphocytes % (Manual) 12 % (13-43) L 03/08/17 05:44 Monocytes % (Manual) 12 % (4-9) H 03/08/17 05:44 Plt Morphology Comment Normal (NORMAL) 03/08/17 05:44 RBC Morphology Normal (NORMAL) 03/08/17 05:44 INR Target Range - 03/05/17 11:40 INR 1.23 (0.8-1.3) 03/05/17 11:40 PTT 27.9 SECONDS (22.9-36.5) 03/05/17 11:40 PTT Comment - 03/05/17 11:40 Sodium 140 mmol/L (136-145) 03/08/17 03:53 Corrected Sodium TNP 03/08/17 03:53 Potassium 4.3 mmol/L (3.5-5.1) 03/08/17 03:53 Chloride 107 mmol/L (98-107) 03/08/17 03:53 Carbon Dioxide 26.6 mmol/L (21-32) 03/08/17 03:53 BUN 4 mg/dL (7-18) L 03/08/17 03:53 Creatinine 0.62 mg/dL (0.55-1.02) 03/08/17 03:53 Est GFR (MDRD) Af Amer > 60 (>60) 03/08/17 03:53 Est GFR (MDRD) Non-Af > 60 (>60) 03/08/17 03:53 Glucose 80 mg/dL (65-99) 03/08/17 03:53 Calcium 8.5 mg/dL (8.5-10.1) 03/08/17 03:53 Corrected Calcium 9.9 mg/dL (8.5-10.1) 03/08/17 03:53 Magnesium 1.7 mg/dL (1.7-2.9) 03/05/17 11:40 Total Bilirubin 2.60 mg/dL (0.2-1.0) H 03/08/17 03:53 AST 32 Units/L (15-37) 03/08/17 03:53 ALT 20 Units/L (12-78) 03/08/17 03:53 Alkaline Phosphatase 88 Units/L (46-116) 03/08/17 03:53 Creatine Kinase 36 Units/L (26-192) 03/05/17 11:40 CK-MB (CK-2) < 1.0 ng/mL (0-4.0) 03/05/17 11:40 CK/CKMB % Calc 2.8 % (<4) 03/05/17 11:40 Troponin I < 0.02 ng/mL (0-1.5) 03/05/17 11:40 Total Protein 5.5 g/dL (6.4-8.2) L 03/08/17 03:53 Albumin 2.3 g/dL (3.4-5.0) L 03/08/17 03:53 Globulin 3.2 g/dL (2.5-4.5) 03/08/17 03:53 Albumin/Globulin Ratio 0.7 Ratio (1.1-2.1) L 03/08/17 03:53 Amylase 109 Units/L (25-115) 03/05/17 11:40 Lipase 165 Units/L (73-393) 03/05/17 11:40 - Plan (1) S/P repair of ventral hernia Status: Acute Plan: CONTINUE POST OPERATIVE PAIN CONTROL. WOUND CARE, DISCUSSED POSSIBLE REHAB THERAPY (2) Cirrhosis Status: Acute Plan: CHRONIC, MONITOR (3) GERD (gastroesophageal reflux disease) Status: Acute Qualifiers: Plan: PPI THERAPY (4) Hypertension Status: Chronic (5) Pulmonary hypertension Status: Chronic Plan: HTN CONTROL. MONITOR, CXR
--- NOTE | 2017-03-08 14:12 | RAD ---
HISTORY: 61-year-old female with shortness of breath. Study: Frontal view of the chest. Comparison: Chest radiograph March 05, 2017 Findings: The trachea is midline. The cardiac silhouette is unremarkable. Low lung volumes with patchy airspa ce opacity in the right lung base and mild elevation of the right hemidiaphragm. No focal consolidati on, effusion or pneumothorax otherwise. Soft tissues are unremarkable. Osseous structures are unrema rkable. IMPRESSION: 1. Patchy airspace opacity in the right lung base with elevation of the right hemidiaphragm, atelect asis versus infectious process, correlate clinically. Reported By:
[2017-03-09] MEDS ORDERED: NS 1000 ML 1,000 ML ONE (03:48)
[2017-03-09] MEDS: ZOSYN VIAL 4.5 GM IV SCH ×2 (05:45→14:40)
[2017-03-09] MEDS ORDERED: NS 100 ML IV + SPIKE MINIBAG* 100 ML IV ONE ×2 (05:50→14:37)
[2017-03-09 05:59] LABS: ALANINE AMINOTRANSFERASE 14 Units/L (12-78); ALBUMIN 1.9 g/dL (3.4-5.0); ALKALINE PHOSPHATASE 76 Units/L (46-116); ASPARTATE AMINO TRANSFERASE 18 Units/L (15-37); BASOPHILS % (AUTO) 0.6 % (0.2-1.0); BLOOD UREA NITROGEN 4 mg/dL (7-18); CALCIUM 8.1 mg/dL (8.5-10.1); CARBON DIOXIDE 29.8 mmol/L (21-32); CHLORIDE 108 mmol/L (98-107); COR CA(FOR HYPOALB) 9.8 mg/dL (8.5-10.1); CREATININE 0.53 mg/dL (0.55-1.02); EOSINOPHILS # (AUTO) 0.1 x10^3/uL (0.0-0.2); EOSINOPHILS % (AUTO) 2.5 % (0.9-2.9); HEMATOCRIT 32.5 % (36.0-47.0); HEMOGLOBIN 10.9 g/dL (12.0-16.0); LYMPHOCYTES # (AUTO) 0.9 X10^3/uL (1.3-2.9); LYMPHOCYTES % (AUTO) 20.7 % (21.0-51.0); MEAN CORPUSCULAR HEMOGLOBIN 31.3 pg (27.0-34.0); MEAN CORPUSCULAR HGB CONC 33.4 g/dL (33.0-35.0); MEAN CORPUSCULAR VOLUME 93.7 fL (80.0-100.0); MEAN PLATELET VOLUME 8.7 fL (7.4-11.0); MONOCYTES # (AUTO) 0.8 x10^3/uL (0.3-0.8); MONOCYTES % (AUTO) 19.9 % (0.0-13.0); NEUTROPHILS # (AUTO) 2.4 x10^3/uL (2.2-4.8); NEUTROPHILS % (AUTO) 56.3 % (42.0-75.0); PLATELET COUNT 101 X10^3/uL (150.0-450.0); RED BLOOD COUNT 3.47 X10^6/uL (3.5-5.4); RED CELL DISTRIBUTION WIDTH 17.9 % (11.6-16.5); SODIUM 140 mmol/L (136-145); TOTAL PROTEIN 4.7 g/dL (6.4-8.2); WHITE BLOOD COUNT 4.2 X10^3/uL (3.6-10.0); eGFR BLACK RACES > 60 (>60); eGFR NON BLACK RACES > 60 (>60)
[2017-03-09] MEDS ORDERED: ULTRAM PO PRN (09:25)
[2017-03-09] MEDS ORDERED: QUELICIN (OR ANECTINE) ONE (10:22)
[2017-03-09] MEDS ORDERED: NORCURON INJ 10 MG VIAL ONE (10:22)
[2017-03-09] MEDS ORDERED: VERSED ONE (10:22)
[2017-03-09] MEDS ORDERED: LTA KIT LIDOCAINE 4% ONE (10:22)
[2017-03-09] MEDS ORDERED: SUPRANE IN ONE (10:22)
[2017-03-09] MEDS ORDERED: XYLOCAINE 2 % (PLAIN) ONE (10:22)
[2017-03-09] MEDS ORDERED: NEOSTIGMINE INJ ONE (10:22)
[2017-03-09] MEDS ORDERED: DIPRIVAN VIAL ONE (10:22)
[2017-03-09] MEDS ORDERED: ROBINUL ONE (10:22)
[2017-03-09] MEDS ORDERED: EPHEDRINE SULFATE INJ ONE (10:22)
[2017-03-09] MEDS ORDERED: DULCOLAX SUPPOSITORY 10 MG RECTAL NR (10:37)
[2017-03-09] MEDS: NORCO 5/325 MG TAB PO PRN (11:05)
[2017-03-09] MEDS ORDERED: COLACE CAP 100 MG PO SCH (12:00)
[2017-03-09] MEDS ORDERED: MILK OF MAGNESIA PO SCH (12:00)
[2017-03-09] MEDS ORDERED: HYDROXYZINE HCL PO PRN (13:31)
[2017-03-09] MEDS ORDERED: REVATIO PO SCH (14:00)
[2017-03-09 14:32] VITALS: BP 143/55
[2017-03-09] MEDS ORDERED: NS 100 ML IV 0 ML IV ONE (14:36)
[2017-03-09] MEDS ORDERED: MICRO K EXTEN CAP 10 MEQ PO SCH (21:00)
[2017-03-09] MEDS ORDERED: PERIACTIN TAB 4 MG PO SCH (21:00)
[2017-03-09] MEDS ORDERED: NEURONTIN TAB 600 MG PO SCH (21:00)
[2017-03-09] MEDS ORDERED: ATARAX TAB 25 MG PO SCH (21:00)
[2017-03-10] MEDS ORDERED: HYDROCHLOROTHIAZIDE 25 MG TAB PO SCH (09:00)
[2017-03-10] MEDS ORDERED: PREVACID PO SCH (09:00)
[2017-03-10] MEDS ORDERED: ALDACTONE TAB 25 MG PO SCH (09:00)
[2017-03-10] MEDS ORDERED: ZYLOPRIM PO SCH (09:00)
[2017-03-10] MEDS ORDERED: LASIX PO SCH (09:00)
== END 2017-03-09 15:50 | DRG 353 ==
LOC: ER 11:12 → MED/SURG 15:25
PROVIDERS: ADMIT Internal Medicine; ATTEND Internal Medicine
PROC: 0DBS0ZZ (ICD-10-PCS; 2017-03-06)
PROC: 0WUF0JZ Supplement Abdominal Wall with Synthetic Substitute, Open Approach (ICD-10-PCS; principal; 2017-03-06 14:00)
DX: K43.6 Other and unspecified ventral hernia with obstruction, without gangrene (principal); I88.0 Nonspecific mesenteric lymphadenitis; R10.84 Generalized abdominal pain; R11.2 Nausea with vomiting, unspecified; M54.2 Cervicalgia; E87.6 Hypokalemia; K55.069 Acute infarction of intestine, part and extent unspecified; K74.69 Other cirrhosis of liver; K76.6 Portal hypertension; R26.89 Other abnormalities of gait and mobility
CPT/HCPCS: 36415; 71010; 74176; 80048; 80053; 82150; 82550; 82553; 83690; 83735; 84132; 84484; 85025; 85610; 85730; 93005; 93010; 94760; 96365; 96367; 96374; 96375; 99284; A4216; A4222; S0020; S0028; J0330; J0690; J1170; J2001; J2250; J2270; J2405; J2543; J2550; J2710; J2765; J3010; J3480; J3490; J7042; J7120

== ENCOUNTER 2017-10-16 13:18 | Emergency (ER) | payer OTHER ==
[2017-10-16 13:31] VITALS: BP 182/88; BMI 24.3
--- NOTE | 2017-10-16 13:35 | DR.EXTPAIN ---
HPI - Time seen Time seen: 13:25 - PCP Primary Care Physician: ANUSHA - Complaint/Symptoms Chief Complaint Doctor Comments: She denies the fall being preceeded by palpitations or lightheadedness. Chief Complaint:: PT. FELL THIS MORNING LANDING ON HER LEFT SHOULDER. PT. C/O PAIN. - Nurses notes reviewed Nurses Notes Review: Yes - Source History Provided: Patient - Mode of arrival Mode of Arrival: Wheelchair - Timing Onset of Chief Complaint: 10/16/17 PMH - PMH Past Medical History: Yes Past Medical History: Anemia, Arthritis, Asthma, Cirrhosis (secondary to alcoholism.), COPD, GERD Past Medical History Comment: chronic LBP Past Surgical History: Yes Surgical History: Hysterectomy, Joint Replacement, Ortho Surgery - Family History History of Family Medical Conditions: Yes Family Medical History: Diabetes Mellitus, Cancer, [place], Heart Failure, Hypertension - Social History Does patient currently use any type of tobacco product: No Have you used tobacco products in the last 12 months: No Type of Tobacco Use: None Does any household member use tobacco: No Alcohol Use: None Do you use any recreational Drugs:: No Lives With: Alone Lives Where: Home - infectious screening In the last 2 months have you had wt loss of >10#?: NO Have you had fever, night sweats or hemotysis?: No Have you traveled outside the country in the last 6 months?: No Isolation: Standard ROS - Review of Systems Constitutional: No Symptoms Reported Eyes: No Symptoms Reported ENTM: No Symptoms Reported Respiratoy: No Symptoms Reported Cardiovascular: No Symptoms Reported Gastrointestinal/Abdominal: No Symptoms Reported Genitourinary: No Symptoms Reported Neurological: No Symptoms Reported Musculoskeletal: Shoulder (lt., pain) Integumentary: No Symptoms Reported Hematologic/Lymphatic: No Symptoms Reported Endocrine: No Symptoms Reported All Other Systems: Reviewed and Negative PE - Vital Signs Vitals: Temperature 98 F Pulse Rate 58 Respiratory Rate 17 Blood Pressure [Right Arm] 101/57 Blood Pressure [Left Arm] 143/55 Blood Pressure 182/88 O2 Sat by Pulse Oximetry 98 - General Limitations: No Limitations General Appearance: Alert, In No Apparent Distress - Head Head Exam: Normal Inspection - Eyes Eye exam: Normal Appearance - ENT ENT Exam: Normal Exam - Neck Neck Exam: Normal Inspection - Chest Chest Inspection: Normal Inspection - Respiratory Respiratory Exam: Normal Lung Sounds Bilat - Cardiovascular Cardiovascular Exam: Regular Rate, Normal Rhythm, +S1, +S2 - Abdominal Exam Abdominal Exam: Normal Inspection, Normal Bowel Sounds, Soft - Upper Extremities Shoulder Exam: Normal Inspection, Tenderness (distal lt. clavicle to AC joint ) Arm Exam: Normal Inspection - Back Back Exam: Normal Inspection - Neurological Neurological Exam: Alert, Oriented X3, CN II-XII Intact - Psychiatric Psychiatric Exam: Normal Affect, Normal Mood - Skin Skin Exam: Warm, Dry, Intact, Normal Color ROR - XRAY XRAY Interpreted by: Self (no frcture or dislocation noted of clavicle/shoulder) - Diagnosis Discharge Problem: Contusion of shoulder, left - Discharge Plan Disposition: HOME, SELF-CARE Condition: Stable - Follow ups/Referrals Follow ups/Referrals: Jj Butts [Primary Care Provider] - 3 days - Instructions Instructions: Contusion, [id number]
[2017-10-16] MEDS ORDERED: ULTRAM PO ONE (13:41)
--- NOTE | 2017-10-16 13:41 | RAD ---
Examination: Left shoulder, three views History: Fell Findings: No definite fracture or dislocation. The humeral head is in normal position. There is degen erative narrowing of the acromioclavicular joint. No bone destruction or soft tissue calcification id entified. Impression: Osteoarthritis AC joint. No acute injury identified. Reported By:
[2017-10-16] MEDS ORDERED: ULTRAM ONE (13:47)
== END 2017-10-16 13:55 | disposition home or self-care (01) ==
LOC: ER 13:21
DX: S40.012A Contusion of left shoulder, initial encounter (principal); W19.XXXA Unspecified fall, initial encounter; Y92.9 Unspecified place or not applicable
CPT/HCPCS: 73030; 99282

== ENCOUNTER 2017-12-01 14:40 | Observation (INO) ==
[2017-12-01 16:28] VITALS: BMI 25.3
[2017-12-01 16:42] LABS: BASOPHILS # (AUTO) 0.1 X10^3/uL (0.0-0.1); BASOPHILS % (AUTO) 2.4 % (0.2-1.0); EOSINOPHILS % (AUTO) 0.8 % (0.9-2.9); HEMATOCRIT 41.7 % (36.0-47.0); HEMOGLOBIN 13.9 g/dL (12.0-16.0); LYMPHOCYTES # (AUTO) 1.3 X10^3/uL (1.3-2.9); LYMPHOCYTES % (AUTO) 23.6 % (21.0-51.0); MEAN CORPUSCULAR HEMOGLOBIN 29.3 pg (27.0-34.0); MEAN CORPUSCULAR HGB CONC 33.2 g/dL (33.0-35.0); MEAN CORPUSCULAR VOLUME 88.1 fL (80.0-100.0); MEAN PLATELET VOLUME 8.4 fL (7.4-11.0); MONOCYTES # (AUTO) 0.8 x10^3/uL (0.3-0.8); NEUTROPHILS # (AUTO) 3.1 x10^3/uL (2.2-4.8); NEUTROPHILS % (AUTO) 58.2 % (42.0-75.0); PLATELET COUNT 139 X10^3/uL (150.0-450.0); RED BLOOD COUNT 4.73 X10^6/uL (3.5-5.4); RED CELL DISTRIBUTION WIDTH 16.2 % (11.6-16.5); WHITE BLOOD COUNT 5.4 X10^3/uL (3.6-10.0)
[2017-12-01 17:01] LABS: ALANINE AMINOTRANSFERASE 29 Units/L (12-78); ALBUMIN 2.9 g/dL (3.4-5.0); ALKALINE PHOSPHATASE 95 Units/L (46-116); ASPARTATE AMINO TRANSFERASE 33 Units/L (15-37); BLOOD UREA NITROGEN 7 mg/dL (7-18); CALCIUM 9.3 mg/dL (8.5-10.1); CARBON DIOXIDE 31.3 mmol/L (21-32); CHLORIDE 102 mmol/L (98-107); COR CA(FOR HYPOALB) 10.2 mg/dL (8.5-10.1); CREATININE 0.56 mg/dL (0.55-1.02); SODIUM 137 mmol/L (136-145); TOTAL PROTEIN 6.6 g/dL (6.4-8.2); eGFR NON BLACK RACES > 60 (>60)
[2017-12-01] MEDS: NS 1000 ML 1,000 ML IV SCH (17:01)
[2017-12-01] MEDS: PERCOCET TAB 5/325 MG PO PRN ×2 (17:05→19:15)
[2017-12-01] MEDS: TORADOL 30 MG VIAL IVP PRN ×2 (17:07→23:45)
--- NOTE | 2017-12-01 17:37 | VAS ---
HISTORY: 62-year-old female with severe left lower leg edema and pain. Study: Venous duplex Doppler left lower extremity. Comparison: None. TECHNIQUE: Multiple martinez scale and color flow Doppler images of the deep venous system were obtained of the left lower extremity. FINDINGS: The deep venous system of the left lower extremity was evaluated from the level of the common femoral vein through the popliteal vein. Normal color flow and augmentation can be observed. In addition, normal compression is seen throughout the deep venous system. IMPRESSION: 1. Negative for DVT. Reported By:
--- NOTE | 2017-12-01 19:32 | RAD ---
HISTORY: Left lower leg pain and edema Study: Two views of the left tibia and fibula Comparison: April 25, 2012 Findings: No evidence of acute displaced fracture or dislocation is identified. A sclerotic focus is again seen within the distal tibial metaphysis in keeping with a bone island. The ankle mortise is maintained. Edematous changes of the overlying soft tissues are noted. IMPRESSION: Edematous changes of the overlying soft tissues without evidence of acute osseous abnormality. Reported By:
[2017-12-01] MEDS: MILK OF MAGNESIA PO SCH (21:17)
[2017-12-01] MEDS: COLACE CAP 100 MG PO SCH (21:17)
[2017-12-02] MEDS: NS 1000 ML 1,000 ML IV SCH ×3 (03:48→20:36)
[2017-12-02 05:14] LABS: BASOPHILS % (AUTO) 0.8 % (0.2-1.0); EOSINOPHILS # (AUTO) 0.1 x10^3/uL (0.0-0.2); EOSINOPHILS % (AUTO) 2.3 % (0.9-2.9); HEMATOCRIT 37.3 % (36.0-47.0); HEMOGLOBIN 12.3 g/dL (12.0-16.0); LYMPHOCYTES # (AUTO) 0.8 X10^3/uL (1.3-2.9); LYMPHOCYTES % (AUTO) 22.4 % (21.0-51.0); MEAN CORPUSCULAR HEMOGLOBIN 29.6 pg (27.0-34.0); MEAN CORPUSCULAR VOLUME 89.5 fL (80.0-100.0); MEAN PLATELET VOLUME 8.2 fL (7.4-11.0); MONOCYTES # (AUTO) 0.7 x10^3/uL (0.3-0.8); MONOCYTES % (AUTO) 17.9 % (0.0-13.0); NEUTROPHILS # (AUTO) 2.1 x10^3/uL (2.2-4.8); NEUTROPHILS % (AUTO) 56.6 % (42.0-75.0); PLATELET COUNT 124 X10^3/uL (150.0-450.0); RED BLOOD COUNT 4.17 X10^6/uL (3.5-5.4); RED CELL DISTRIBUTION WIDTH 15.8 % (11.6-16.5); WHITE BLOOD COUNT 3.7 X10^3/uL (3.6-10.0)
[2017-12-02 05:26] LABS: ALANINE AMINOTRANSFERASE 26 Units/L (12-78); ALBUMIN 2.3 g/dL (3.4-5.0); ALKALINE PHOSPHATASE 94 Units/L (46-116); ASPARTATE AMINO TRANSFERASE 26 Units/L (15-37); BLOOD UREA NITROGEN 9 mg/dL (7-18); CALCIUM 8.5 mg/dL (8.5-10.1); CHLORIDE 106 mmol/L (98-107); COR CA(FOR HYPOALB) 9.9 mg/dL (8.5-10.1); CREATININE 0.58 mg/dL (0.55-1.02); SODIUM 139 mmol/L (136-145); TOTAL PROTEIN 5.5 g/dL (6.4-8.2); eGFR NON BLACK RACES > 60 (>60)
[2017-12-02] MEDS: TORADOL 30 MG VIAL IVP PRN ×2 (09:37→19:09)
[2017-12-02] MEDS ORDERED: HYDROXYZINE HCL 50 MG PO PRN (09:55)
[2017-12-02] MEDS ORDERED: PATIENT'S HOME MEDICATION (Escitalopram Oxalate [Escitalopram Oxalate] 1 TAB) PO SCH (10:00)
[2017-12-02] MEDS ORDERED: [UNRECOGNIZED DRUG - OTHER] PO SCH (10:00)
[2017-12-02] MEDS ORDERED: SPIRONOLACTONE PO SCH (10:00)
[2017-12-02] MEDS ORDERED: HYDROCHLOROTHIAZIDE PO SCH (10:00)
[2017-12-02] MEDS ORDERED: VITAMIN D (1.25MG) PO SCH (10:00)
[2017-12-02] MEDS ORDERED: ATARAX TAB 25 MG PO PRN (10:47)
[2017-12-02] MEDS ORDERED: LEXAPRO ONE (11:04)
[2017-12-02] MEDS: LEXAPRO PO SCH (11:13)
[2017-12-02] MEDS: HYDROCHLOROTHIAZIDE 25 MG TAB PO SCH (11:14)
[2017-12-02] MEDS: PREVACID PO SCH (11:14)
[2017-12-02] MEDS: PERIACTIN TAB 4 MG PO SCH ×2 (11:14→20:08)
[2017-12-02] MEDS: LASIX PO SCH (11:14)
[2017-12-02] MEDS: CELEBREX PO SCH (11:14)
[2017-12-02] MEDS: ALDACTONE TAB 25 MG PO SCH (11:14)
[2017-12-02] MEDS: K-DUR TAB 20 MEQ PO SCH (11:15)
[2017-12-02] MEDS: ZYLOPRIM PO SCH (11:15)
[2017-12-02] MEDS: TAPENTADOL PO SCH ×2 (11:19→20:08)
[2017-12-02] MEDS: REVATIO PO SCH ×2 (13:35→21:26)
[2017-12-02] MEDS: ANTIVERT TAB 25 MG PO SCH ×2 (13:35→21:26)
[2017-12-02] MEDS: COLACE CAP 100 MG PO SCH (20:07)
[2017-12-02] MEDS: MILK OF MAGNESIA PO SCH (20:08)
[2017-12-02] MEDS ORDERED: NEURONTIN TAB 600 MG PO SCH (21:00)
--- NOTE | 2017-12-02 21:18 | DR.UPDATE ---
H&P Update History and Physical Update: was seen in the office today. A H&P was completed prior to admission. History and Physical reviewed and patient examined. no changes noted. Changes noted: NO Yes with the following:
[2017-12-03] MEDS: TORADOL 30 MG VIAL IVP PRN (01:25)
[2017-12-03] MEDS: ANTIVERT TAB 25 MG PO SCH ×2 (05:13→13:08)
[2017-12-03] MEDS: REVATIO PO SCH ×2 (05:13→13:08)
[2017-12-03 05:16] LABS: BASOPHILS # (AUTO) 0.1 X10^3/uL (0.0-0.1); BASOPHILS % (AUTO) 1.7 % (0.2-1.0); EOSINOPHILS # (AUTO) 0.1 x10^3/uL (0.0-0.2); EOSINOPHILS % (AUTO) 2.9 % (0.9-2.9); HEMATOCRIT 39.7 % (36.0-47.0); HEMOGLOBIN 13.1 g/dL (12.0-16.0); LYMPHOCYTES # (AUTO) 0.9 X10^3/uL (1.3-2.9); LYMPHOCYTES % (AUTO) 23.2 % (21.0-51.0); MEAN CORPUSCULAR HEMOGLOBIN 29.4 pg (27.0-34.0); MEAN CORPUSCULAR VOLUME 89.2 fL (80.0-100.0); MEAN PLATELET VOLUME 8.4 fL (7.4-11.0); MONOCYTES # (AUTO) 0.6 x10^3/uL (0.3-0.8); MONOCYTES % (AUTO) 14.5 % (0.0-13.0); NEUTROPHILS # (AUTO) 2.3 x10^3/uL (2.2-4.8); NEUTROPHILS % (AUTO) 57.7 % (42.0-75.0); PLATELET COUNT 129 X10^3/uL (150.0-450.0); RED BLOOD COUNT 4.45 X10^6/uL (3.5-5.4); RED CELL DISTRIBUTION WIDTH 15.8 % (11.6-16.5); WHITE BLOOD COUNT 4.1 X10^3/uL (3.6-10.0)
[2017-12-03 05:31] LABS: ALANINE AMINOTRANSFERASE 25 Units/L (12-78); ALBUMIN 2.4 g/dL (3.4-5.0); ALKALINE PHOSPHATASE 93 Units/L (46-116); ASPARTATE AMINO TRANSFERASE 30 Units/L (15-37); BLOOD UREA NITROGEN 8 mg/dL (7-18); CALCIUM 8.7 mg/dL (8.5-10.1); CARBON DIOXIDE 25.7 mmol/L (21-32); CHLORIDE 108 mmol/L (98-107); CREATININE 0.61 mg/dL (0.55-1.02); SODIUM 140 mmol/L (136-145); TOTAL PROTEIN 5.8 g/dL (6.4-8.2); eGFR NON BLACK RACES > 60 (>60)
[2017-12-03] MEDS ORDERED: LEXAPRO ONE (07:51)
[2017-12-03] MEDS: PERCOCET TAB 5/325 MG PO PRN (08:10)
[2017-12-03] MEDS: CELEBREX PO SCH (08:42)
[2017-12-03] MEDS: ALDACTONE TAB 25 MG PO SCH (08:42)
[2017-12-03] MEDS: ZYLOPRIM PO SCH (08:43)
[2017-12-03] MEDS: PREVACID PO SCH (08:43)
[2017-12-03] MEDS: PERIACTIN TAB 4 MG PO SCH (08:43)
[2017-12-03] MEDS: K-DUR TAB 20 MEQ PO SCH (08:43)
[2017-12-03] MEDS: HYDROCHLOROTHIAZIDE 25 MG TAB PO SCH (08:43)
[2017-12-03] MEDS: TAPENTADOL PO SCH (08:43)
[2017-12-03] MEDS: LEXAPRO PO SCH (08:44)
[2017-12-03] MEDS: LASIX PO SCH (08:44)
[2017-12-03 09:12] VITALS: BP 110/64
--- NOTE | 2017-12-21 23:41 | DR.CARTERD ---
- Discharge Summary for: Discharge Summary for Date of:: 12/03/17 - Admission Date Date of Admission: 11/30/17 - Admission Diagnoses Admission Diagnosis: 1. Intractable left lower extremity pain 2. LLE edema - Discharge Date Discharge Date: 12/03/17 - Discharge Diagnoses Discharge Diagnosis: 1. Intractable left lower extremity pain 2. LLE edema - Hospital Course Hospital Course: Mr. Rosales presented to the hospital as a direct admission after being seen in the office with reports of possible gout to left leg and foot. Pain rated as a 9/10. Patient noted to be in distress secondary to pain. Bilateral lower extremities noted with swelling and redness. Feet noted to be warm to touch with tenderness on palpation. Patient admitted for further evaluation and treatment. Medical History: Tinnitus, Hypertension, Asthma, Bronchitis, Pneumonia, Hepatitis, Cirrhosis, Kidney Stones, Arthritis, Anemia. Medications : Toradol 30mg IV Q6hr PRN, Percocet 5/325mg 2tabs po Q6hr PRN, NS @75ml/hr, Colace 200mg po HS, Milk of Mag 30ml po HS. Abnormal Labs: Plt Count 139, Corrected Calcium 10.2, Total Bilirubin 1.80, Albumin 2.9, A/G Ratio 0.8. Tibia /Fibula X-Ray: Edematous changes of the overlying soft tissues without evidence of acute osseous abnormality. Venous Doppler: Negative for DVT. We continued with treatment and monitored. On day two, patient continued with pain to left lower extremity. Less redness was noted. Patient reported slight improvement. We continued with treatment for pain and edema. On day three, patient reported symptoms had greatly improved. No redness was noted to left leg. Edema was improved. Vital signs stable. Labs wnl. We planned for discharge. Instructions for medications and follow up were discussed with patient and family, both voiced understanding. Patient discharged home in stable condition with family. - Discharge Medications Discharge Medications: Home Medication List acetaminophen-codeine [Tylenol with Codeine #4 Tablet] 1 each PO Q4-6H PRN 12/01 [History] ergocalciferol (vitamin D2) 1 cap PO Q48H 12/01/17 [History] escitalopram oxalate 1 tab PO DAILY 12/01/17 [History] furosemide 1 tab PO DAILY 12/01/17 [History] meclizine 1 tab PO TID 12/01/17 [History] potassium chloride 1 tab PO DAILY 12/01/17 [History] celecoxib [Celebrex] 100 mg PO BID #60 cap 12/03/17 [Rx] oxycodone-acetaminophen [Percocet] 1 tab PO Q6H PRN #30 tab 12/03/17 [Rx] Prescriptions: celecoxib [Celebrex] Jj Butts oxycodone-acetaminophen [Percocet] Jj Butts Ambulatory Orders allopurinol 1 tab PO DAILY 10/16/15 gabapentin 1 tab PO HS 10/16/15 hydroxyzine HCl 50 mg PO HS PRN 10/16/15 sildenafil (antihypertensive) 1 tab PO TID 10/16/15 tapentadol [Nucynta ER] 1 tab PO BID 10/16/15 lansoprazole 30 mg PO DAILY #30 cap 03/02/17 cyproheptadine 4 mg PO BID 03/09/17 spironolacton-hydrochlorothiaz 25 mg PO DAILY 03/09/17 - Discharge Disposition Discharge Disposition: Patient is to follow up in our office in one week.
--- NOTE | 2018-01-09 08:30 | PCM.PROG ---
Progress Note - Progress Note for Day of Date of Exam: 12/02/17 - Subjective Subjective: WAS ADMITTED FOR LEFT LEG AND FOOT PAIN WITH EDEMA. TODAY , SHE IS ALERT AND ORIENTED, LYING IN BED ON MORNING ROUNDS. SHE CONTINUES WITH PAIN TO THE LEFT LEG. ON EXAMINATION, THERE IS TRACE EDEMA NOTED. A DOPPLER WAS OBTAINED ON ADMISSION AND REVEALED NEGATIVE FOR DVT. TIG/FIB XRAY REVEALED: Edematous changes of the overlying soft tissues without evidence of acute osseous abnormality. HER VITALS TODAY ARE 98.4-74-20-90%-144/73. SHE IS HEMODYNAMICALLY STABLE TODAY. TODAY, WE WILL START CELEBREX 100MG PO BID. OTHERWISE, WE WILL CONTINUE WITH CURRENT PLAN OF CARE. WE WILL FOLLOW UP WITH AM LABS AND CONTINUE TO MONITOR PATIENT. - Past Medical Family Social History Past Med/Fam/Surg Hx: No changes since H&P Allergies: Allergies aspirin Allergy (Verified 12/21/17 10:04) ibuprofen Allergy (Verified 12/21/17 10:04) - Review of Systems ROS: No change since H&P - Vital Signs and I&O's Vital Signs: Temperature 98.5 F Pulse Rate [Right Brachial] 66 Respiratory Rate 18 Blood Pressure [Right Arm] 110/64 Blood Pressure [Left Arm] 143/55 Blood Pressure 182/88 O2 Sat by Pulse Oximetry 93 - Physical Exam Oriented: Normal Eyes: Normal Ear: Normal Nose: Normal Throat: Normal Respiratory: Normal Cardiovascular: Normal, Edema (LEFT LEG ). negative: S3, S4, Murmur : Normal Auscultation: Bowel Sounds: Normal Palpation: Normal Tenderness: Normal Skin: Normal Musculoskeletal: Left, Leg, Swelling, Tender Psychiatric: Normal Mood Description: Calm Affect: Normal Speech Pattern: Clear - Laboratory and Diagnostics Result Diagrams: 12/03/17 04:42 12/03/17 04:42 Labs: Laboratory WBC 4.1 X10^3/uL (3.6-10.0) 12/03/17 04:42 RBC 4.45 X10^6/uL (3.5-5.4) 12/03/17 04:42 Hgb 13.1 g/dL (12.0-16.0) 12/03/17 04:42 Hct 39.7 % (36.0-47.0) 12/03/17 04:42 MCV 89.2 fL (80.0-100.0) 12/03/17 04:42 MCH 29.4 pg (27.0-34.0) 12/03/17 04:42 MCHC 33.0 g/dL (33.0-35.0) 12/03/17 04:42 RDW 15.8 % (11.6-16.5) 12/03/17 04:42 Plt Count 129 X10^3/uL (150.0-450.0) L 12/03/17 04:42 MPV 8.4 fL (7.4-11.0) 12/03/17 04:42 Neut % (Auto) 57.7 % (42.0-75.0) 12/03/17 04:42 Lymph % (Auto) 23.2 % (21.0-51.0) 12/03/17 04:42 [place] % (Auto) 14.5 % (0.0-13.0) H 12/03/17 04:42 Eos % (Auto) 2.9 % (0.9-2.9) 12/03/17 04:42 Baso % (Auto) 1.7 % (0.2-1.0) H 12/03/17 04:42 Neut # (Auto) 2.3 x10^3/uL (2.2-4.8) 12/03/17 04:42 Lymph # (Auto) 0.9 X10^3/uL (1.3-2.9) L 12/03/17 04:42 [place] # (Auto) 0.6 x10^3/uL (0.3-0.8) 12/03/17 04:42 Eos # (Auto) 0.1 x10^3/uL (0.0-0.2) 12/03/17 04:42 Baso # (Auto) 0.1 X10^3/uL (0.0-0.1) 12/03/17 04:42 Absolute Nucleated RBC 0.1 /100WBC 12/03/17 04:42 Sodium 140 mmol/L (136-145) 12/03/17 04:42 Corrected Sodium TNP 12/03/17 04:42 Potassium 4.2 mmol/L (3.5-5.1) 12/03/17 04:42 Chloride 108 mmol/L (98-107) H 12/03/17 04:42 Carbon Dioxide 25.7 mmol/L (21-32) 12/03/17 04:42 BUN 8 mg/dL (7-18) 12/03/17 04:42 Creatinine 0.61 mg/dL (0.55-1.02) 12/03/17 04:42 Est GFR (MDRD) Af Amer > 60 (>60) 12/03/17 04:42 Est GFR (MDRD) Non-Af > 60 (>60) 12/03/17 04:42 Glucose 91 mg/dL (65-99) 12/03/17 04:42 Calcium 8.7 mg/dL (8.5-10.1) 12/03/17 04:42 Corrected Calcium 10.0 mg/dL (8.5-10.1) 12/03/17 04:42 Total Bilirubin 1.10 mg/dL (0.2-1.0) H 12/03/17 04:42 AST 30 Units/L (15-37) 12/03/17 04:42 ALT 25 Units/L (12-78) 12/03/17 04:42 Alkaline Phosphatase 93 Units/L (46-116) 12/03/17 04:42 Total Protein 5.8 g/dL (6.4-8.2) L 12/03/17 04:42 Albumin 2.4 g/dL (3.4-5.0) L 12/03/17 04:42 Globulin 3.4 g/dL (2.5-4.5) 12/03/17 04:42 Albumin/Globulin Ratio 0.7 Ratio (1.1-2.1) L 12/03/17 04:42 - Plan (1) Left leg pain Status: Acute Plan: CELEBREX 100MG PO BID, CONTINUE TO MONITOR
== END 2017-12-03 14:00 | disposition home or self-care (01) ==
LOC: MED/SURG
PROVIDERS: ADMIT Internal Medicine; ATTEND Internal Medicine
DX: M25.552 Pain in left hip; M10.9 Gout, unspecified; E55.9 Vitamin D deficiency, unspecified; I10 Essential (primary) hypertension; Z79.899 Other long term (current) drug therapy; R60.0 Localized edema; R26.89 Other abnormalities of gait and mobility
CPT/HCPCS: 36415; 73590; 80053; 85025; 93971; 97162; 97166; 97535; A4222; G0378; J1885; J7030

== ENCOUNTER 2018-02-24 12:51 | Observation (INO) ==
[2018-02-24] MEDS ORDERED: TUSSIONEX PENNKINETIC SUSP PO PRN (13:34)
[2018-02-24 14:05] VITALS: BMI 26.0
--- NOTE | 2018-02-24 14:19 | RAD ---
HISTORY: Pneumonia, shortness of breath Study: PA and lateral views of the chest Comparison: 03/08/2017, 03/05/2017, 05/14/2016 Findings: There is stable chronic scarring or interstitial prominence in the left perihilar region. No new infi ltrate, effusion or pneumothorax is identified. Heart size is within normal limits. The pulmonary art onel contour appears enlarged. The soft tissues are unremarkable. IMPRESSION: 1. Stable left perihilar interstitial prominence or scarring that appears chronic in nature. No new i nfiltrate identified. 2. Pulmonary artery contour appears enlarged that can be seen with pulmonary hypertension, correlate clinically. Reported By:
[2018-02-24] MEDS ORDERED: NS 1/2 1000 ML IV 1,000 ML IV ONE (14:20)
[2018-02-24] MEDS: FORTAZ or TAZICEF VIAL INJ 1 G in NS 100 ML IV + SPIKE MINIBAG* 100 ML IV SCH ×2 (14:26→20:59)
[2018-02-24] MEDS: NS 1/2 1000 ML IV 1,000 ML IV SCH (14:26)
[2018-02-24] MEDS: NYSTATIN SUSP MT SCH ×3 (14:27→20:53)
[2018-02-24] MEDS: ROBITUSSIN DM PO SCH ×3 (14:27→20:53)
[2018-02-24] MEDS: ALBUMIN HUMAN 25%- 100 ML 100 ML IV SCH (14:27)
[2018-02-24] MEDS: DIFLUCAN 200 MG IV PREMIX* 200 MG/100 ML BAG IV SCH (14:28)
[2018-02-24 14:35] LABS: EOSINOPHILS % (AUTO) 0.8 % (0.9-2.9); HEMATOCRIT 46.6 % (36.0-47.0); HEMOGLOBIN 15.8 g/dL (12.0-16.0); LYMPHOCYTES # (AUTO) 0.5 X10^3/uL (1.3-2.9); LYMPHOCYTES % (AUTO) 19.6 % (21.0-51.0); MEAN CORPUSCULAR HEMOGLOBIN 30.9 pg (27.0-34.0); MEAN CORPUSCULAR HGB CONC 33.8 g/dL (33.0-35.0); MEAN CORPUSCULAR VOLUME 91.3 fL (80.0-100.0); MEAN PLATELET VOLUME 8.3 fL (7.4-11.0); MONOCYTES # (AUTO) 0.7 x10^3/uL (0.3-0.8); MONOCYTES % (AUTO) 29.2 % (0.0-13.0); NEUTROPHILS # (AUTO) 1.2 x10^3/uL (2.2-4.8); NEUTROPHILS % (AUTO) 49.4 % (42.0-75.0); PLATELET COUNT 105 X10^3/uL (150.0-450.0); RED BLOOD COUNT 5.11 X10^6/uL (3.5-5.4); RED CELL DISTRIBUTION WIDTH 16.3 % (11.6-16.5); WHITE BLOOD COUNT 2.5 X10^3/uL (3.6-10.0)
[2018-02-24 14:44] LABS: ALANINE AMINOTRANSFERASE 65 Units/L (12-78); ALBUMIN 3.1 g/dL (3.4-5.0); ALKALINE PHOSPHATASE 111 Units/L (46-116); ASPARTATE AMINO TRANSFERASE 39 Units/L (15-37); BLOOD UREA NITROGEN 7 mg/dL (7-18); CALCIUM 9.9 mg/dL (8.5-10.1); CARBON DIOXIDE 26.3 mmol/L (21-32); CHLORIDE 103 mmol/L (98-107); COR CA(FOR HYPOALB) 10.6 mg/dL (8.5-10.1); CREATININE 0.73 mg/dL (0.55-1.02); SODIUM 138 mmol/L (136-145); TOTAL PROTEIN 6.8 g/dL (6.4-8.2); eGFR NON BLACK RACES > 60 (>60)
[2018-02-24] MEDS: MORPHINE SULFATE INJ 2 MG INJ IVP PRN ×2 (17:13→21:28)
[2018-02-24] MEDS: DUONEB 0.5 MG/3 MG NEB SCH ×2 (17:34→21:11)
[2018-02-25] MEDS: NORCO 5/325 MG TAB PO PRN ×2 (00:33→10:36)
[2018-02-25] MEDS: DUONEB 0.5 MG/3 MG NEB SCH ×6 (01:41→20:44)
[2018-02-25] MEDS: FORTAZ or TAZICEF VIAL INJ 1 G in NS 100 ML IV + SPIKE MINIBAG* 100 ML IV SCH ×3 (05:27→21:23)
[2018-02-25 06:49] LABS: BASOPHILS % (AUTO) 0.2 % (0.2-1.0); EOSINOPHILS % (AUTO) 0.8 % (0.9-2.9); HEMATOCRIT 37.4 % (36.0-47.0); HEMOGLOBIN 12.6 g/dL (12.0-16.0); LYMPHOCYTES # (AUTO) 0.4 X10^3/uL (1.3-2.9); LYMPHOCYTES % (AUTO) 20.4 % (21.0-51.0); MEAN CORPUSCULAR HEMOGLOBIN 30.9 pg (27.0-34.0); MEAN CORPUSCULAR HGB CONC 33.8 g/dL (33.0-35.0); MEAN CORPUSCULAR VOLUME 91.5 fL (80.0-100.0); MEAN PLATELET VOLUME 8.5 fL (7.4-11.0); MONOCYTES # (AUTO) 0.5 x10^3/uL (0.3-0.8); MONOCYTES % (AUTO) 23.4 % (0.0-13.0); NEUTROPHILS # (AUTO) 1.1 x10^3/uL (2.2-4.8); NEUTROPHILS % (AUTO) 55.2 % (42.0-75.0); PLATELET COUNT 79 X10^3/uL (150.0-450.0); RED BLOOD COUNT 4.09 X10^6/uL (3.5-5.4); RED CELL DISTRIBUTION WIDTH 16.2 % (11.6-16.5)
[2018-02-25 07:19] LABS: ALANINE AMINOTRANSFERASE 46 Units/L (12-78); ALBUMIN 2.7 g/dL (3.4-5.0); ALKALINE PHOSPHATASE 79 Units/L (46-116); ASPARTATE AMINO TRANSFERASE 27 Units/L (15-37); BLOOD UREA NITROGEN 6 mg/dL (7-18); CARBON DIOXIDE 25.7 mmol/L (21-32); CHLORIDE 109 mmol/L (98-107); CREATININE 0.54 mg/dL (0.55-1.02); SODIUM 141 mmol/L (136-145); TOTAL PROTEIN 5.4 g/dL (6.4-8.2); eGFR NON BLACK RACES > 60 (>60)
--- NOTE | 2018-02-25 08:21 | RAD ---
Examination: Portable AP chest History: SOB Comparison reference 02/24/2018 Findings: Continued normal heart size. Interstitial distortion again noted in the left lung compatibl e with fibrotic scarring. No acute infiltrate, consolidation or large pleural effusion. Impression: No change or acute process identified. See above. Reported By:
[2018-02-25] MEDS: ALBUMIN HUMAN 25%- 100 ML 100 ML IV SCH (08:27)
[2018-02-25] MEDS: DIFLUCAN 200 MG IV PREMIX* 200 MG/100 ML BAG IV SCH (08:28)
[2018-02-25] MEDS: NYSTATIN SUSP MT SCH ×4 (08:29→21:23)
[2018-02-25] MEDS: ROBITUSSIN DM PO SCH ×4 (08:29→21:23)
[2018-02-25 10:11] LABS: EOSINOPHILS % (AUTO) 0.9 % (0.9-2.9); HEMATOCRIT 41.6 % (36.0-47.0); HEMOGLOBIN 13.8 g/dL (12.0-16.0); LYMPHOCYTES # (AUTO) 0.5 X10^3/uL (1.3-2.9); LYMPHOCYTES % (AUTO) 20.6 % (21.0-51.0); MEAN CORPUSCULAR HEMOGLOBIN 30.6 pg (27.0-34.0); MEAN CORPUSCULAR HGB CONC 33.2 g/dL (33.0-35.0); MEAN CORPUSCULAR VOLUME 92.1 fL (80.0-100.0); MEAN PLATELET VOLUME 8.5 fL (7.4-11.0); MONOCYTES # (AUTO) 0.4 x10^3/uL (0.3-0.8); MONOCYTES % (AUTO) 17.6 % (0.0-13.0); NEUTROPHILS # (AUTO) 1.4 x10^3/uL (2.2-4.8); NEUTROPHILS % (AUTO) 59.9 % (42.0-75.0); PLATELET COUNT 94 X10^3/uL (150.0-450.0); RED BLOOD COUNT 4.51 X10^6/uL (3.5-5.4); RED CELL DISTRIBUTION WIDTH 16.3 % (11.6-16.5); WHITE BLOOD COUNT 2.3 X10^3/uL (3.6-10.0)
[2018-02-25 10:32] LABS: BAND NEUTROPHILS % 14 % (0-10); METAMYELOCYTES % 6
[2018-02-25 10:33] LABS: PLATELET MORPHOLOGY COMMENT NORMAL (NORMAL)
[2018-02-25 10:40] LABS: BAND NEUTROPHILS % 9 % (0-10)
[2018-02-25 10:41] LABS: METAMYELOCYTES % 3; PLATELET MORPHOLOGY COMMENT NORMAL (NORMAL)
--- NOTE | 2018-02-25 12:04 | PCM.PROG ---
Progress Note - Progress Note for Day of Date of Exam: 02/25/18 - Subjective Subjective: 62 BF DIRECT ADMIT ON 02/24 WITH CHEST CONGESTION, SOB, COPD WITH ACUTE BRONCHITIS AND PNEUMONIA. PT HAS PMH OF LIVER DISEASE, HTN, OA, HYPERLIPIDEMIA. PT CURRENTLY ON IV ATBX, RESP TREAMENT, JET NEBS. SUPPLEMENTAL O2. SPUTUM CULTURE PENDING. CONTINUE BP MONITORING AND REPEAT AM LABS. - Past Medical Family Social History Past Med/Fam/Surg Hx: No changes since H&P Allergies: Allergies aspirin Allergy (Verified 12/21/17 10:04) ibuprofen Allergy (Verified 12/21/17 10:04) - Review of Systems ROS: No change since H&P - Vital Signs and I&O's Vital Signs: Temperature 98.5 F Pulse Rate [Apical] 56 Pulse Rate 88 Respiratory Rate 20 Blood Pressure [Right Arm] 111/58 Blood Pressure [Left Arm] 124/55 Blood Pressure 178/88 O2 Sat by Pulse Oximetry 96 Intake and Output: Intake & Output 02/23/18 02/24/18 02/25/18 02/26/18 11:59 11:59 11:59 11:59 Intake Total 1260 / 1260 Balance 1260 / 1260 - Physical Exam Oriented: Normal, Person Ear: Normal Nose: Normal Throat: Red Respiratory: Diminished, Wheezes, Rhonchi Cardiovascular: Tachycardia. negative: Edema : Normal Auscultation: Bowel Sounds: Normal Palpation: Normal Tenderness: Normal Skin: Decreased Turgur Musculoskeletal: Back:Lumbar Psychiatric: Anxiety Affect: Anxious Speech Pattern: Clear - Laboratory and Diagnostics Result Diagrams: 02/25/18 09:44 02/25/18 05:29 Labs: 02/24/18 14:21 Sputum - Expectorated Sputum Sputum Culture - Preliminary 02/24/18 14:21 Sputum - Expectorated Sputum - Final Laboratory WBC 2.3 X10^3/uL (3.6-10.0) L 02/25/18 09:44 RBC 4.51 X10^6/uL (3.5-5.4) 02/25/18 09:44 Hgb 13.8 g/dL (12.0-16.0) 02/25/18 09:44 Hct 41.6 % (36.0-47.0) 02/25/18 09:44 MCV 92.1 fL (80.0-100.0) 02/25/18 09:44 MCH 30.6 pg (27.0-34.0) 02/25/18 09:44 MCHC 33.2 g/dL (33.0-35.0) 02/25/18 09:44 RDW 16.3 % (11.6-16.5) 02/25/18 09:44 Plt Count 94 X10^3/uL (150.0-450.0) L 02/25/18 09:44 Plt Count Comment Decreased (ADEQUATE) A 02/25/18 09:44 MPV 8.5 fL (7.4-11.0) 02/25/18 09:44 Neut % (Auto) 59.9 % (42.0-75.0) 02/25/18 09:44 Lymph % (Auto) 20.6 % (21.0-51.0) L 02/25/18 09:44 [place] % (Auto) 17.6 % (0.0-13.0) H 02/25/18 09:44 Eos % (Auto) 0.9 % (0.9-2.9) 02/25/18 09:44 Baso % (Auto) 1.0 % (0.2-1.0) 02/25/18 09:44 Neut # (Auto) 1.4 x10^3/uL (2.2-4.8) L 02/25/18 09:44 Lymph # (Auto) 0.5 X10^3/uL (1.3-2.9) L 02/25/18 09:44 [place] # (Auto) 0.4 x10^3/uL (0.3-0.8) 02/25/18 09:44 Eos # (Auto) 0.0 x10^3/uL (0.0-0.2) 02/25/18 09:44 Baso # (Auto) 0.0 X10^3/uL (0.0-0.1) 02/25/18 09:44 Absolute Nucleated RBC 0.2 /100WBC 02/25/18 09:44 Total Counted 100 02/25/18 09:44 Neutrophils % (Manual) 40 % (39-76) 02/25/18 09:44 Band Neutrophils % 9 % (0-10) 02/25/18 09:44 Lymphocytes % (Manual) 30 % (13-43) 02/25/18 09:44 Monocytes % (Manual) 9 % (4-9) 02/25/18 09:44 Eosinophils % (Manual) 1 % (0-6) 02/24/18 14:05 Basophils % (Manual) Cancelled 02/24/18 14:05 Metamyelocytes % 3 02/25/18 09:44 Myelocytes % Cancelled 02/24/18 14:05 Promyelocytes % Cancelled 02/24/18 14:05 Nucleated RBCs Cancelled 02/24/18 14:05 Atypical Lymphocytes 9 02/25/18 09:44 Blast Cells Cancelled 02/24/18 14:05 Smudge Cells Cancelled 02/24/18 14:05 Toxic Granulation Cancelled 02/24/18 14:05 Dohle Bodies Cancelled 02/24/18 14:05 Deepak Rods Cancelled 02/24/18 14:05 Plt Clumps, EDTA Cancelled 02/24/18 14:05 Giant Platelets Cancelled 02/24/18 14:05 Plt Morphology Comment Normal (NORMAL) 02/25/18 09:44 RBC Morphology Normal (NORMAL) 02/25/18 09:44 Dimorphic RBCs Cancelled 02/24/18 14:05 Polychromasia Cancelled 02/24/18 14:05 Hypochromasia Cancelled 02/24/18 14:05 Poikilocytosis Cancelled 02/24/18 14:05 Basophilic Stippling Cancelled 02/24/18 14:05 Anisocytosis Cancelled 02/24/18 14:05 Microcytosis Cancelled 02/24/18 14:05 Macrocytosis Cancelled 02/24/18 14:05 Spherocytes Cancelled 02/24/18 14:05 Pappenheimer Bodies Cancelled 02/24/18 14:05 Sickle Cells Cancelled 02/24/18 14:05 Target Cells Cancelled 02/24/18 14:05 Tear Drop Cells Cancelled 02/24/18 14:05 Ovalocytes Cancelled 02/24/18 14:05 Stomatocytes Cancelled 02/24/18 14:05 Helmet Cells Cancelled 02/24/18 14:05 Acevedo-[place] Bodies Cancelled 02/24/18 14:05 [place] Rings Cancelled 02/24/18 14:05 Elijah Cells Cancelled 02/24/18 14:05 Crenated Cell Cancelled 02/24/18 14:05 Acanthocytes (Spur) Cancelled 02/24/18 14:05 Rouleaux Cancelled 02/24/18 14:05 Schistocytes Cancelled 02/24/18 14:05 Sodium 141 mmol/L (136-145) 02/25/18 05:29 Corrected Sodium TNP 02/25/18 05:29 Potassium 3.5 mmol/L (3.5-5.1) 02/25/18 05:29 Chloride 109 mmol/L (98-107) H 02/25/18 05:29 Carbon Dioxide 25.7 mmol/L (21-32) 02/25/18 05:29 BUN 6 mg/dL (7-18) L 02/25/18 05:29 Creatinine 0.54 mg/dL (0.55-1.02) L 02/25/18 05:29 Est GFR (MDRD) Af Amer > 60 (>60) 02/25/18 05:29 Est GFR (MDRD) Non-Af > 60 (>60) 02/25/18 05:29 Glucose 91 mg/dL (65-99) 02/25/18 05:29 Calcium 9.0 mg/dL (8.5-10.1) 02/25/18 05:29 Corrected Calcium 10.0 mg/dL (8.5-10.1) 02/25/18 05:29 Total Bilirubin 3.10 mg/dL (0.2-1.0) H 02/25/18 05:29 AST 27 Units/L (15-37) 02/25/18 05:29 ALT 46 Units/L (12-78) 02/25/18 05:29 Alkaline Phosphatase 79 Units/L (46-116) 02/25/18 05:29 Total Protein 5.4 g/dL (6.4-8.2) L 02/25/18 05:29 Albumin 2.7 g/dL (3.4-5.0) L 02/25/18 05:29 Globulin 2.7 g/dL (2.5-4.5) 02/25/18 05:29 Albumin/Globulin Ratio 1.0 Ratio (1.1-2.1) L 02/25/18 05:29 - Plan (1) Pneumonia Status: Acute Plan: CULTURES BLOOD AND SPUTUM PENDING. CONTINUE RESP CARE, SUPPLEMENTAL O2. IV ATBX, BP MONITORING, JET NEBS. ENCOURAGE ORAL HYDRATION. ABG THIS AM (2) COPD with acute bronchitis Status: Acute (3) Cirrhosis Status: Chronic (4) Hypertension Status: Chronic (5) Pulmonary hypertension Status: Chronic (6) GERD (gastroesophageal reflux disease) Status: Chronic Qualifiers:
[2018-02-25 13:17] LABS: ABG BASE EXCESS -2.2 mmol/L (-2.0-2.0); ABG HCO3 20.9 mmol/L (22-26)
[2018-02-25 13:18] LABS: ABG ALLEN TEST POS; FRACTIONATED INSPIRED OXYGEN 28
[2018-02-25] MEDS ORDERED: PROCTOSOL HC CRM 2.5% TOP PRN (13:54)
[2018-02-25] MEDS ORDERED: NS 1/2 1000 ML IV 1,000 ML IV ONE (16:58)
[2018-02-25] MEDS: NS 1/2 1000 ML IV 1,000 ML IV SCH (17:02)
[2018-02-26] MEDS: DUONEB 0.5 MG/3 MG NEB SCH ×4 (00:56→12:05)
[2018-02-26] MEDS: FORTAZ or TAZICEF VIAL INJ 1 G in NS 100 ML IV + SPIKE MINIBAG* 100 ML IV SCH ×2 (05:29→13:07)
[2018-02-26 06:18] LABS: BASOPHILS % (AUTO) 0.4 % (0.2-1.0); EOSINOPHILS % (AUTO) 1.3 % (0.9-2.9); HEMATOCRIT 37.6 % (36.0-47.0); HEMOGLOBIN 12.7 g/dL (12.0-16.0); LYMPHOCYTES # (AUTO) 0.5 X10^3/uL (1.3-2.9); MEAN CORPUSCULAR HEMOGLOBIN 30.9 pg (27.0-34.0); MEAN CORPUSCULAR HGB CONC 33.7 g/dL (33.0-35.0); MEAN CORPUSCULAR VOLUME 91.6 fL (80.0-100.0); MEAN PLATELET VOLUME 7.9 fL (7.4-11.0); MONOCYTES # (AUTO) 0.4 x10^3/uL (0.3-0.8); NEUTROPHILS # (AUTO) 1.3 x10^3/uL (2.2-4.8); NEUTROPHILS % (AUTO) 59.3 % (42.0-75.0); PLATELET COUNT 80 X10^3/uL (150.0-450.0); RED BLOOD COUNT 4.11 X10^6/uL (3.5-5.4); WHITE BLOOD COUNT 2.2 X10^3/uL (3.6-10.0)
[2018-02-26 06:47] LABS: ALANINE AMINOTRANSFERASE 44 Units/L (12-78); ALKALINE PHOSPHATASE 73 Units/L (46-116); ASPARTATE AMINO TRANSFERASE 30 Units/L (15-37); BLOOD UREA NITROGEN 5 mg/dL (7-18); CALCIUM 9.1 mg/dL (8.5-10.1); CARBON DIOXIDE 25.5 mmol/L (21-32); CHLORIDE 109 mmol/L (98-107); COR CA(FOR HYPOALB) 9.9 mg/dL (8.5-10.1); SODIUM 142 mmol/L (136-145); TOTAL PROTEIN 5.6 g/dL (6.4-8.2); eGFR NON BLACK RACES > 60 (>60)
--- NOTE | 2018-02-26 07:29 | RAD ---
HISTORY: Bronchopneumonia. Shortness of breath. Study: Single-view chest. Comparison: 02/25/2018. Findings: The trachea is midline. The cardiac silhouette is at the upper limits of normal in size. Bi basilar interstitial changes, left greater than right, are grossly unchanged. There is no focal conso lidation, significant pleural effusion or evidence of pneumothorax. The bony thorax is grossly unrema rkable. IMPRESSION: Unchanged exam from the previous day without focal consolidation or pleural effusion. Reported By:
[2018-02-26 08:03] LABS: PLATELET MORPHOLOGY COMMENT NORMAL (NORMAL)
[2018-02-26 08:04] LABS: BAND NEUTROPHILS % 4 % (0-10)
[2018-02-26] MEDS: ALBUMIN HUMAN 25%- 100 ML 100 ML IV SCH (09:17)
[2018-02-26] MEDS: DIFLUCAN 200 MG IV PREMIX* 200 MG/100 ML BAG IV SCH (09:17)
[2018-02-26] MEDS: ROBITUSSIN DM PO SCH ×2 (09:18→13:07)
[2018-02-26] MEDS: NYSTATIN SUSP MT SCH ×2 (09:18→13:06)
[2018-02-26 12:28] VITALS: BP 117/62
== END 2018-02-26 15:07 | disposition home or self-care (01) ==
LOC: MED/SURG
PROVIDERS: ADMIT Internal Medicine; ATTEND Internal Medicine
DX: J18.0 Bronchopneumonia, unspecified organism; E78.2 Mixed hyperlipidemia; B96.1 Klebsiella pneumoniae [K. pneumoniae] as the cause of diseases classified elsewhere; J20.8 Acute bronchitis due to other specified organisms; Z79.899 Other long term (current) drug therapy; E80.6 Other disorders of bilirubin metabolism; J44.0 Chronic obstructive pulmonary disease with (acute) lower respiratory infection; I27.20 Pulmonary hypertension, unspecified; K74.69 Other cirrhosis of liver; R00.0 Tachycardia, unspecified; D72.820 Lymphocytosis (symptomatic); B37.0 Candidal stomatitis; K21.9 Gastro-esophageal reflux disease without esophagitis; J44.1 Chronic obstructive pulmonary disease with (acute) exacerbation; R06.02 Shortness of breath
CPT/HCPCS: 36415; 36600; 71010; 71020; 71045; 71046; 80053; 82803; 85025; 87040; 87070; 87077; 87186; 87205; 94640; 94760; 99217; A4222; P9047; G0378; J0713; J1450; J2270; J7050; J7620

== ENCOUNTER 2018-05-02 15:39 | Inpatient (IN) ==
[2018-05-02] MEDS ORDERED: DUONEB 0.5 MG/3 MG ONE ×2 (15:45→19:37)
[2018-05-02] MEDS ORDERED: DUONEB 0.5 MG/3 MG NEB ONE (15:55)
--- NOTE | 2018-05-02 16:26 | ED.ABDFE ---
HPI Time Seen Time Seen by Provider: 05/02/18 16:00 PCP Primary Care Physician: melinda HPI Comment HPI Comment: WORSE TODAY. MEDS AT HOME DID NOT RELIEF PAIN. Complaint Doctors Chief Complaint Comments: SOB, GENERALIZE ABDOMINAL PAIN TIMES 3 DAYS. Chief Complaint:: pt stated she has been hurting all over and her abd for 3 days with no relief. Reviewed Nurses Notes Review: Yes Source History Provided: Patient and EMS Mode of arrival Mode of Arrival: EMS Timing Onset of Chief Complaint: 04/30/18 Duration Since Onset: Constant Duration: Days Location Location: Diffuse Severity Severity: Moderate Quality Quality: Aching, Burning and Sharp Context History of: None Modifying factors Worsening Factors: Movement Improving Factors: Nothing Associated signs and symptoms Associated Signs and Symptoms: Nausea, Vomiting and Constipation PMH PMH Past Medical History: Yes Past Medical History: Anemia, Arthritis, Asthma, Cirrhosis, COPD and GERD Past Surgical History: Yes Family History History of Family Medical Conditions: Yes Family Medical History: Diabetes Mellitus, Cancer, [place] and Heart Failure Social History Does patient currently use any type of tobacco product: No Have you used tobacco products in the last 12 months: No Type of Tobacco Use: None Does any household member use tobacco: No Alcohol Use: None Do you use any recreational Drugs:: No Lives With: Mom Lives Where: Home infectious screening In the last 2 months have you had wt loss of >10#?: NO Have you had fever, night sweats or hemotysis?: No Have you traveled outside the country in the last 6 months?: No Isolation: Standard ROS Review of Systems Constitutional: Weakness and Fatigue Eyes: No Symptoms Reported ENTM: Nose Congestion Respiratoy: Productive Cough, Short of Breath and Wheezing Cardiovascular: Chest Pain Gastrointestinal/Abdominal: Abdominal Pain, Nausea and Vomiting Genitourinary: No Symptoms Reported Neurological: Headache, Weakness and Dizziness Musculoskeletal: Joint Pain and Muscle Pain Integumentary: Dryness Hematologic/Lymphatic: Easy Bleeding and Easy Bruising Endocrine: No Symptoms Reported Psychiatric: No Symptoms Reported All Other Systems: Reviewed and Negative PE Vital Signs Vitals: Temperature 98 F Pulse Rate [Right Brachial] 79 Pulse Rate [Apical] 117 Pulse Rate 74 Respiratory Rate 18 Blood Pressure [Right Arm] 130/62 Blood Pressure [Left Arm] 105/58 Blood Pressure 121/60 O2 Sat by Pulse Oximetry 92 General Limitations: No Limitations General Appearance: Alert and In Distress Head Head Exam: Normal Inspection, Atraumatic and Normocephalic Eyes Eye exam: PERRL and EOMI; negative Scleral Icterus and Conjunctival Injection ENT ENT Exam: Normal External Ear Exam Neck Neck Exam: Full ROM and Trachea Midline; negative Tenderness, Meningismus and Lymphadenopathy Chest Chest Inspection: Symmetric Chest Wall Rise Respiratory Respiratory Exam: Accessory Muscle Use Respiratory Exam: Bilateral: Wheezing and Bilateral: Rhonchi, Upper: Wheezing and Lower: Wheezing and Lower: Rhonchi Cardiovascular Cardiovascular Exam: Regular Rate and Normal Rhythm Abdominal Exam Abdominal Exam: Normal Inspection, Normal Bowel Sounds, Soft and Tenderness Abdominal Tenderness: Diffuse and Moderate Rectal Rectal Exam: Deferred Back Back Exam: Normal Inspection Extremeties Extremities Exam: Normal Capillary Refill External Exam: Female: Deferred : Speculum Exam (Female): Deferred : Bimanual Exam (female): Deferred Neurologic Neurological Exam: Alert and Oriented X3; negative Motor Sensory Deficit Psychiatric Psychiatric Exam: Anxious Skin Skin Exam: Dry and Intact MDM Differential Diagnosis Differential Diagnosis- Considerations may include:: Constipation, Diverticular disease, Esophagitis, Gastritus/PUD, Gastroenteritis, Inflammatory BD, Pancreatitis, Urinary tract infection and Urolithiasis COURSE Treatment Treatment: SEE OZZY. NEB TREATMENT AND IV SOLUMEDROL IN ED. Education/Counseling Education/Counseling: Patient Educated On: Diagnosis ROR Labs Reviewed Laboratory Results Reviewed?: Yes Result Diagrams: 05/12/18 04:52 05/12/18 05:00 Laboratory: 05/09/18 10:51 Blood Blood Culture - Final 05/09/18 11:00 Blood Blood Culture - Final 05/02/18 16:10 Blood Blood Culture - Final 05/05/18 11:24 Sputum - Expectorated Sputum Sputum Culture - Final Escherichia Coli 05/05/18 11:24 Sputum - Expectorated Sputum - Final 05/02/18 17:40 Blood Blood Culture - Final Streptococcus Pneumoniae 05/02/18 19:45 Urine,Catheterized Urine Culture - Final Escherichia Coli WBC 3.7 X10^3/uL (3.6-10.0) 05/12/18 04:52 RBC 3.55 X10^6/uL (3.5-5.4) 05/12/18 04:52 Hgb 10.7 g/dL (12.0-16.0) L D 05/12/18 04:52 Hct 32.9 % (36.0-47.0) L 05/12/18 04:52 MCV 92.6 fL (80.0-100.0) 05/12/18 04:52 MCH 30.1 pg (27.0-34.0) 05/12/18 04:52 MCHC 32.5 g/dL (33.0-35.0) L 05/12/18 04:52 RDW 17.5 % (11.6-16.5) H 05/12/18 04:52 Plt Count 74 X10^3/uL (150.0-450.0) L 05/12/18 04:52 Plt Count Comment Decreased (ADEQUATE) A 05/11/18 05:05 MPV 9.4 fL (7.4-11.0) 05/12/18 04:52 Neut % (Auto) 70.9 % (42.0-75.0) 05/12/18 04:52 Lymph % (Auto) 10.0 % (21.0-51.0) L 05/12/18 04:52 [place] % (Auto) 17.3 % (0.0-13.0) H 05/12/18 04:52 Eos % (Auto) 1.0 % (0.9-2.9) 05/12/18 04:52 Baso % (Auto) 0.8 % (0.2-1.0) 05/12/18 04:52 Neut # (Auto) 2.6 x10^3/uL (2.2-4.8) 05/12/18 04:52 Lymph # (Auto) 0.4 X10^3/uL (1.3-2.9) L 05/12/18 04:52 [place] # (Auto) 0.6 x10^3/uL (0.3-0.8) 05/12/18 04:52 Eos # (Auto) 0.0 x10^3/uL (0.0-0.2) 05/12/18 04:52 Baso # (Auto) 0.0 X10^3/uL (0.0-0.1) 05/12/18 04:52 Absolute Nucleated RBC 0.1 /100WBC 05/12/18 04:52 Total Counted 100 05/11/18 05:05 Neutrophils % (Manual) 73 % (39-76) 05/11/18 05:05 Band Neutrophils % 4 % (0-10) 05/11/18 05:05 Lymphocytes % (Manual) 10 % (13-43) L 05/11/18 05:05 Monocytes % (Manual) 11 % (4-9) H 05/11/18 05:05 Eosinophils % (Manual) 2 % (0-6) 05/11/18 05:05 Basophils % (Manual) Cancelled 05/02/18 17:40 Metamyelocytes % 3 05/07/18 04:52 Myelocytes % Cancelled 05/02/18 17:40 Promyelocytes % Cancelled 05/02/18 17:40 Nucleated RBCs Cancelled 05/02/18 17:40 Atypical Lymphocytes Cancelled 05/02/18 17:40 Blast Cells Cancelled 05/02/18 17:40 Smudge Cells Cancelled 05/02/18 17:40 Toxic Granulation Cancelled 05/02/18 17:40 Dohle Bodies Cancelled 05/02/18 17:40 Deepak Rods Cancelled 05/02/18 17:40 Plt Clumps, EDTA Cancelled 05/02/18 17:40 Giant Platelets Cancelled 05/02/18 17:40 Plt Morphology Comment Normal (NORMAL) 05/11/18 05:05 RBC Morphology Normal (NORMAL) 05/11/18 05:05 Dimorphic RBCs Cancelled 05/02/18 17:40 Polychromasia Cancelled 05/02/18 17:40 Hypochromasia Cancelled 05/02/18 17:40 Poikilocytosis Cancelled 05/02/18 17:40 Basophilic Stippling Cancelled 05/02/18 17:40 Anisocytosis Cancelled 05/02/18 17:40 Microcytosis Cancelled 05/02/18 17:40 Macrocytosis Cancelled 05/02/18 17:40 Spherocytes Cancelled 05/02/18 17:40 Pappenheimer Bodies Cancelled 05/02/18 17:40 Sickle Cells Cancelled 05/02/18 17:40 Target Cells Cancelled 05/02/18 17:40 Tear Drop Cells Cancelled 05/02/18 17:40 Ovalocytes Cancelled 05/02/18 17:40 Stomatocytes Cancelled 05/02/18 17:40 Helmet Cells Cancelled 05/02/18 17:40 Aceved[place] Bodies Cancelled 05/02/18 17:40 [place] Rings Cancelled 05/02/18 17:40 Elijah Cells Cancelled 05/02/18 17:40 Crenated Cell Cancelled 05/02/18 17:40 Acanthocytes (Spur) Cancelled 05/02/18 17:40 Rouleaux Cancelled 05/02/18 17:40 Schistocytes Cancelled 05/02/18 17:40 Smear Path Review See note 05/02/18 17:40 D-Dimer 2480 ng/mL (0-400) H* 05/02/18 19:50 Sample Site Lbr 05/02/18 17:49 ABG pH 7.390 (7.35-7.45) 05/02/18 17:49 ABG pCO2 39.0 mmHg (35.0-45.0) 05/02/18 17:49 ABG pO2 94.0 mmHg (80.0-100.0) 05/02/18 17:49 ABG HCO3 23.6 mmol/L (22-26) 05/02/18 17:49 ABG O2 Saturation 97.0 % (90-100) 05/02/18 17:49 ABG Base Excess -1.2 mmol/L (-2.0-2.0) 05/02/18 17:49 Aries Test N/a 05/02/18 17:49 A-a Gradient 570.0 mmHg 05/02/18 17:49 FiO2 100 05/02/18 17:49 Blood Gas Comments Pt anne marie well cdn 05/02/18 17:49 Sodium 141 mmol/L (136-145) 05/12/18 05:00 Corrected Sodium 143 mmol/L (136-145) 05/12/18 05:00 Potassium 4.4 mmol/L (3.5-5.1) 05/12/18 05:00 Chloride 109 mmol/L (98-107) H 05/12/18 05:00 Carbon Dioxide 27.7 mmol/L (21-32) 05/12/18 05:00 BUN 9 mg/dL (7-18) 05/12/18 05:00 Creatinine 0.39 mg/dL (0.55-1.02) L 05/12/18 05:00 Est GFR (MDRD) Af Amer > 60 (>60) 05/12/18 05:00 Est GFR (MDRD) Non-Af > 60 (>60) 05/12/18 05:00 Glucose 163 mg/dL (65-99) H 05/12/18 05:00 POC Glucose (mg/dL) 135 mg/dL (65-99) H 05/12/18 11:37 Lactic Acid 2.6 mmol/L (0.4-2.0) H 05/04/18 06:10 Calcium 10.0 mg/dL (8.5-10.1) 05/12/18 05:00 Corrected Calcium 10.9 mg/dL (8.5-10.1) H 05/12/18 05:00 Ionized Calcium Josie 1.81 mmol/L (1.11-1.30) H* 05/08/18 10:20 Ionized Calcium pH 7.4 1.83 mmol/L (1.11-1.30) H* 05/08/18 10:20 Magnesium 2.4 mg/dL (1.7-2.9) 05/04/18 06:10 Total Bilirubin 1.60 mg/dL (0.2-1.0) H 05/12/18 05:00 AST 21 Units/L (15-37) 05/12/18 05:00 ALT 21 Units/L (12-78) 05/12/18 05:00 Alkaline Phosphatase 65 Units/L (46-116) 05/12/18 05:00 Ammonia 24 umol/L (11-32) 05/12/18 08:35 Creatine Kinase 21 Units/L (26-192) L 05/04/18 06:10 CK-MB (CK-2) < 1.0 ng/mL (0-4.0) 05/04/18 06:10 CK/CKMB % Calc 4.8 % (<4) 05/04/18 06:10 Troponin I 0.02 ng/mL (0-1.5) 05/04/18 06:10 B-Natriuretic Peptide 529 pg/mL (0-79) H* 05/02/18 19:50 Total Protein 5.2 g/dL (6.4-8.2) L 05/12/18 05:00 Total Protein (PEP) 5.40 g/dL (6.00-8.30) L 05/08/18 10:20 Albumin 2.9 g/dL (3.4-5.0) L 05/12/18 05:00 Albumin (PEP) 2.45 g/dL (3.75-5.01) L 05/08/18 10:20 Globulin 2.3 g/dL (2.5-4.5) L 05/12/18 05:00 Albumin/Globulin Ratio 1.3 Ratio (1.1-2.1) 05/12/18 05:00 Gfnhl-0-Evcglzfcy 0.41 g/dL (0.19-0.46) 05/08/18 10:20 Ubuye-2-Bxlcytrly 0.89 g/dL (0.48-1.05) 05/08/18 10:20 Beta Globulins 0.93 g/dL (0.48-1.10) 05/08/18 10:20 Gamma Globulins 0.73 g/dL (0.62-1.51) 05/08/18 10:20 PEP Interpretation See note 05/08/18 10:20 Free T4 0.91 ng/dL (0.76-1.46) 05/10/18 09:46 TSH 3rd Generation 2.568 uIU/mL (0.358-3.74) 05/10/18 09:46 PTH Intact 19 pg/mL (15-65) 05/08/18 10:20 Calcium (PTH Intact) 11.1 mg/dL 05/08/18 10:20 Specimen Type Catherized urine 05/02/18 19:45 Urine Color Ivana (YELLOW) 05/02/18 19:45 Urine Appearance Hazy (CLEAR) 05/02/18 19:45 Urine pH 6.0 (5.0 - 8.0) 05/02/18 19:45 Ur Specific [place] 1.020 (1.000-1.030) 05/02/18 19:45 Urine Protein 2+ (NEGATIVE) 05/02/18 19:45 Urine Glucose (UA) Negative (NEGATIVE) 05/02/18 19:45 Urine Ketones 1+ (NEGATIVE) 05/02/18 19:45 Urine Occult Blood 1+ (NEGATIVE) 05/02/18 19:45 Urine Nitrite Positive (NEGATIVE) 05/02/18 19:45 Urine Bilirubin 2+ (NEGATIVE) 05/02/18 19:45 Urine Urobilinogen 2+ (NORMAL) 05/02/18 19:45 Ur Leukocyte Esterase 1+ (NEGATIVE) 05/02/18 19:45 Urine RBC 3-5 /HPF (NONE SEEN) 05/02/18 19:45 Urine WBC 5-10 /HPF (NONE SEEN) 05/02/18 19:45 Ur Squamous Epith Cells Few /HPF (NEGATIVE) 05/02/18 19:45 Urine Bacteria 2+ /HPF (NEGATIVE) 05/02/18 19:45 Urine Mucus Few /HPF (NEGATIVE) 05/02/18 19:45 Ur Culture Indicated? Yes/culture set up 05/02/18 19:45 Urine Total Volume Random mL 05/08/18 14:20 Urine Total Protein See note mg/dL (10-140) 05/08/18 14:20 Urine Albumin (PEP) Detected (Detected) 05/08/18 14:20 U Jtplb-8-Dqztlkpj None detected (None Detected) 05/08/18 14:20 U Klbmy-6-Cwhsajde None detected (None Detected) 05/08/18 14:20 U Beta Globulin Detected (None Detected) 05/08/18 14:20 U Gamma Globulin Detected (None Detected) 05/08/18 14:20 U Free [place] Light Ch 1.21 mg/dL (0.14-2.42) 05/08/18 14:20 U Free [place] Excretion See note mg/d 05/08/18 14:20 U Free [place] Light Ch 0.08 mg/dL (0.02-0.67) 05/08/18 14:20 Free Lambda Excret 24 See note mg/d 05/08/18 14:20 U Free [place]/Lambda 24 15.13 RATIO (2.04-10.37) H 05/08/18 14:20 CARLOS & SPEP Interp See note 05/08/18 14:20 TSH Receptor Antibody Cancelled 05/10/18 09:46 XRAY XRAY Interpreted by: Radiologist XRAY Findings: REPORT DISCUSS WITH PATIENT. EKG [place]: Normal Rhythm: NSR
[2018-05-02] MEDS ORDERED: MORPHINE SULFATE INJ 2 MG INJ IVP ONE (16:27)
[2018-05-02] MEDS ORDERED: ZOFRAN INJ 4 MG VIAL IVP ONE (16:27)
[2018-05-02] MEDS ORDERED: ZOFRAN INJ 4 MG VIAL ONE (16:29)
[2018-05-02] MEDS ORDERED: MORPHINE SULFATE INJ 2 MG INJ ONE (16:29)
--- NOTE | 2018-05-02 16:53 | RAD ---
Exam: Portable chest History: 63-year-old female with COPD and shortness of breath Comparison: Previous chest radiograph from 02/26/2018 Findings: Mild cardiomegaly is again seen. No significant vascular congestion however. Chronic interstitial changes are again noted at the lung bases. Remainder the lungs are clear. No evidence of acute infiltrate or significant effusion on either side. Impression: 1. Mild cardiomegaly, unchanged 2. Chronic interstitial scarring at the lung bases. 3. No acute superimposed abnormality is seen on this exam Reported By:
[2018-05-02 17:40] LABS: LACTIC ACID 3.3 mmol/L (0.4-2.0)
[2018-05-02 17:58] LABS: BASOPHILS % (AUTO) 0.9 % (0.2-1.0); EOSINOPHILS % (AUTO) 0.4 % (0.9-2.9); HEMATOCRIT 42.7 % (36.0-47.0); HEMOGLOBIN 14.2 g/dL (12.0-16.0); LYMPHOCYTES # (AUTO) 0.1 X10^3/uL (1.3-2.9); LYMPHOCYTES % (AUTO) 13.1 % (21.0-51.0); MEAN CORPUSCULAR HEMOGLOBIN 29.8 pg (27.0-34.0); MEAN CORPUSCULAR HGB CONC 33.3 g/dL (33.0-35.0); MEAN CORPUSCULAR VOLUME 89.7 fL (80.0-100.0); MEAN PLATELET VOLUME 8.2 fL (7.4-11.0); MONOCYTES # (AUTO) 0.2 x10^3/uL (0.3-0.8); MONOCYTES % (AUTO) 18.8 % (0.0-13.0); NEUTROPHILS # (AUTO) 0.6 x10^3/uL (2.2-4.8); NEUTROPHILS % (AUTO) 66.8 % (42.0-75.0); PLATELET COUNT 90 X10^3/uL (150.0-450.0); RED BLOOD COUNT 4.76 X10^6/uL (3.5-5.4); RED CELL DISTRIBUTION WIDTH 16.4 % (11.6-16.5)
[2018-05-02 18:01] LABS: WHITE BLOOD COUNT 0.9 X10^3/uL (3.6-10.0)
[2018-05-02 18:04] LABS: ABG BASE EXCESS -1.2 mmol/L (-2.0-2.0); ABG HCO3 23.6 mmol/L (22-26); FRACTIONATED INSPIRED OXYGEN 100
[2018-05-02 18:11] LABS: ALANINE AMINOTRANSFERASE 41 Units/L (12-78); ALBUMIN 2.5 g/dL (3.4-5.0); ALKALINE PHOSPHATASE 74 Units/L (46-116); ASPARTATE AMINO TRANSFERASE 39 Units/L (15-37); BLOOD UREA NITROGEN 8 mg/dL (7-18); CALCIUM 9.4 mg/dL (8.5-10.1); CARBON DIOXIDE 23.7 mmol/L (21-32); CHLORIDE 101 mmol/L (98-107); CKMB % 2.6 % (<4); COR CA(FOR HYPOALB) 10.6 mg/dL (8.5-10.1); CREATINE KINASE 38 Units/L (26-192); CREATINE KINASE MB < 1.0 ng/mL (0-4.0); CREATININE 0.83 mg/dL (0.55-1.02); SODIUM 133 mmol/L (136-145); TOTAL PROTEIN 5.8 g/dL (6.4-8.2); eGFR NON BLACK RACES > 60 (>60)
[2018-05-02 18:26] LABS: TROPONIN I 0.07 ng/mL (0-1.5)
[2018-05-02] MEDS ORDERED: NS 1000 ML 1,000 ML IV ONE (18:26)
[2018-05-02] MEDS ORDERED: NS 1000 ML 1,000 ML ONE (18:27)
[2018-05-02] MEDS ORDERED: ROCEPHIN VIAL 1 GRAM IM ONE (18:51)
[2018-05-02] MEDS ORDERED: ROCEPHIN VIAL 1 GRAM IVP ONE (19:06)
[2018-05-02] MEDS ORDERED: ROCEPHIN VIAL 1 GRAM ONE (19:09)
[2018-05-02 19:58] LABS: BILIRUBIN,URINE 2+ (NEGATIVE); BLOOD/HEMOGLOBIN,URINE 1+ (NEGATIVE); COLOR,URINE AMBER (YELLOW); GLUCOSE, URINE NEGATIVE (NEGATIVE); KETONES,URINE 1+ (NEGATIVE); LEUKOCYTE ESTERASE ,URINE 1+ (NEGATIVE); NITRITES,URINE POSITIVE (NEGATIVE); PROTEIN,URINE 2+ (NEGATIVE); UROBILINOGEN,URINE 2+ (NORMAL)
[2018-05-02 19:59] LABS: APPEARANCE,URINE HAZY (CLEAR)
[2018-05-02 20:07] LABS: BACTERIA,URINE 2+ /HPF (NEGATIVE); MUCUS,URINE FEW /HPF (NEGATIVE); SQUAMOUS EPITHELIAL CELL,UR FEW /HPF (NEGATIVE)
[2018-05-02] MEDS: DUONEB 0.5 MG/3 MG NEB SCH (20:07)
[2018-05-02 20:29] LABS: B-TYPE NATRIURETIC PEPTIDE 529 pg/mL (0-79)
[2018-05-02 21:32] VITALS: BMI 22.7
[2018-05-02] MEDS ORDERED: KLOR-CON PO PRN (21:52)
[2018-05-02] MEDS ORDERED: POTASSIUM CHL 60 MEQ/NS 0.45% 500 ML IV PRN (21:52)
[2018-05-02] MEDS ORDERED: POTASSIUM CHLORIDE LIQ 20 MEQ UDC PO PRN (21:52)
[2018-05-02] MEDS ORDERED: K-DUR TAB 20 MEQ PO PRN (21:52)
[2018-05-02] MEDS ORDERED: MICRO K EXTEN CAP 10 MEQ PO PRN (21:52)
[2018-05-02] MEDS ORDERED: POTASSIUM CHL 40 MEQ/NS 0.45% 500 ML IV PRN (21:52)
--- NOTE | 2018-05-02 23:03 | CT ---
CTA chest Indication: Elevated D-dimer Technique: Helical CT images of the chest were obtained with IV contrast. Reformatted images in the coronal and sagittal planes and 3D MIP images were also generated for review. Comparison: None Findings: Contrast bolus timing is adequate for detection of PTE. However, respiratory motion artifact limits evaluation of distal segmental and subsegmental pulmonary arteries. Accounting for this, no central or large segmental pulmonary arterial filling defects are identified. There is moderate dilation of central pulmonary arteries, suggestive for underlying pulmonary arterial hypertension. The heart is mildly enlarged without pericardial effusion. There is mild coronary atherosclerotic disease and calcification of the thoracic aorta and proximal great vessels without aneurysm. The central airways are patent. There is no bulky mediastinal or hilar lymphadenopathy. There is moderate bilateral peribronchial thickening as well as dense airspace consolidation with associated air bronchograms of the bilateral lower lobes, compatible with pneumonia. Scattered areas of subsegmental atelectasis and scarring are present within the right middle lobe, lingula and anterior bilateral upper lobes. The remainder of the lungs are grossly clear accounting for motion artifact. No significant pleural effusion or pneumothorax is identified. The imaged liver is cirrhotic in morphology and nodular in surface contour. Prominent perisplenic and perigastric varices are also seen. Limited images of the upper abdomen otherwise demonstrate no acute abnormality. No aggressive osseous lesions are identified. Impression: Motion limited exam without evidence for central or large segmental PTE. Dense airspace consolidation with associated air bronchograms of the bilateral lower lobes, most compatible with multilobar pneumonia. Prominence of the central pulmonary arteries, suggestive for underlying pulmonary arterial hypertension. Cardiomegaly, mild coronary atherosclerotic disease, evidence of cirrhosis with portal venous hypertension and additional findings as above. Reported By:
[2018-05-03] MEDS ORDERED: LEVAQUIN PREMIX IV 750 MG 750 MG/150 ML BAG IV ONE (00:36)
[2018-05-03] MEDS: LEVAQUIN PREMIX IV 750 MG 750 MG/150 ML BAG IV SCH ×2 (00:48→09:19)
[2018-05-03] MEDS ORDERED: SALINE 3% 15 ML NEB TX NEB ONE (00:54)
[2018-05-03] MEDS ORDERED: LEVAQUIN TAB 750 MG PO SCH ×2 (01:00→09:00)
[2018-05-03] MEDS: DUONEB 0.5 MG/3 MG NEB SCH ×6 (01:03→20:00)
[2018-05-03] MEDS ORDERED: LEVOPHED INJ ONE (02:29)
[2018-05-03] MEDS ORDERED: D5W 250 ML IV 250 ML IV ONE (02:29)
[2018-05-03] MEDS: LEVOPHED INJ 8 MG in D5W 250 ML IV 242 ML IV PRN (02:39)
[2018-05-03 06:12] LABS: ALANINE AMINOTRANSFERASE 36 Units/L (12-78); ALBUMIN 2.2 g/dL (3.4-5.0); ALKALINE PHOSPHATASE 63 Units/L (46-116); ASPARTATE AMINO TRANSFERASE 36 Units/L (15-37); BLOOD UREA NITROGEN 12 mg/dL (7-18); CALCIUM 9.1 mg/dL (8.5-10.1); CARBON DIOXIDE 21.2 mmol/L (21-32); CHLORIDE 104 mmol/L (98-107); COR CA(FOR HYPOALB) 10.5 mg/dL (8.5-10.1); CREATININE 0.79 mg/dL (0.55-1.02); MAGNESIUM 1.4 mg/dL (1.7-2.9); SODIUM 135 mmol/L (136-145); TOTAL PROTEIN 5.5 g/dL (6.4-8.2); eGFR NON BLACK RACES > 60 (>60)
[2018-05-03 06:20] LABS: BASOPHILS % (AUTO) 0.6 % (0.2-1.0); EOSINOPHILS % (AUTO) 0.3 % (0.9-2.9); HEMATOCRIT 39.8 % (36.0-47.0); HEMOGLOBIN 13.3 g/dL (12.0-16.0); LYMPHOCYTES # (AUTO) 0.1 X10^3/uL (1.3-2.9); LYMPHOCYTES % (AUTO) 10.9 % (21.0-51.0); MEAN CORPUSCULAR HEMOGLOBIN 30.2 pg (27.0-34.0); MEAN CORPUSCULAR HGB CONC 33.5 g/dL (33.0-35.0); MEAN CORPUSCULAR VOLUME 90.1 fL (80.0-100.0); MEAN PLATELET VOLUME 8.8 fL (7.4-11.0); MONOCYTES # (AUTO) 0.1 x10^3/uL (0.3-0.8); MONOCYTES % (AUTO) 11.1 % (0.0-13.0); NEUTROPHILS # (AUTO) 0.8 x10^3/uL (2.2-4.8); NEUTROPHILS % (AUTO) 77.1 % (42.0-75.0); PLATELET COUNT 95 X10^3/uL (150.0-450.0); RED BLOOD COUNT 4.41 X10^6/uL (3.5-5.4); RED CELL DISTRIBUTION WIDTH 15.6 % (11.6-16.5)
[2018-05-03 06:36] LABS: WHITE BLOOD COUNT 1.1 X10^3/uL (3.6-10.0)
[2018-05-03] MEDS ORDERED: NS 50 ML IV 50 ML IV ONE (08:55)
[2018-05-03] MEDS ORDERED: ROCEPHIN VIAL 1 GRAM IVP SCH (09:00)
--- NOTE | 2018-05-03 10:10 | DR.H&P ---
H&P - History & Physical for Day of: H&P Date: 05/02/18 - Chief Complaint Chief Complaint: SHORT OF BREATH, ABDOMINAL PAIN, ACHING - History of Present Illness History of Present Illness: IS A 63 YEAR OLD PATIENT OF OURS WHO PRESENTED TO THE EMERGENCY ROOM WITH COMPLAINTS OF GENERALIZED ACHING, ABDOMINAL PAIN, AND SHORTNESS OF BREATH FOR THE PAST THREE DAYS. SHE HAS A MEDICAL HISTORY OF ANEMIA, ARTHRITIS, ASTHMA, CIRRHOSIS, HEPATITIS, LIVER FAILURE, COPD, AND GERD. ON ARRIVAL, VITLAS WERE 98.9-027-51-84-126/68. SHE WAS PALCED ON A NON- REBREATHER. OXYGEN SATURATIONS INCREASED TO THE LOW 90S. LABS WERE OBTAINED. ABNORMAL LAB VALUES INCLUDED THE FOLLOWING: WBC 0.9, PLT COUNT 90, D-DIMER 2480, SODIUM 133, POTASSIUM 3.3, LACTIC ACID 3.3, TOTAL BILIRUBIN 5.20, AST 39, BNP 529, TOTAL PROTEIN 5.8, ALBUMIN 2.5. URINALYSIS REVEALED WBC 5-10, RBC 3-5, BACTERIA 2+, LEUKOCYTES 1+, NITRITE POSITIVE, PROTEIN 2+. BLOOD AND URINE CULTURES PENDING. A CHEST XRAY WAS OBTAINED AND REVEALED: MILD CARDIOMEGALY, UNCHANGED. CHRONIC INTERSTITIAL SCARRING AT THE LUNG BASES. NO ACUTE SUPERIMPOSED ABNORMALITY SEEN. A CHEST CT WAS OBTAINED DUE TO ELEVATED D-DIMER AND REVEALED: Motion limited exam without evidence for central or large segmental PTE. Dense airspace consolidation with associated air bronchograms of the bilateral lower lobes, most compatible with multilobar pneumonia. Prominence of the central pulmonary arteries, suggestive for underlying pulmonary arterial hypertension. Cardiomegaly, mild coronary atherosclerotic disease, evidence of cirrhosis with portal venous hypertension and additional findings. EKG REVEALED: SINUS TACHYCARDIA WITH HR 114. SHE WAS GIVEN A NORMAL SALINE BOLUS IN THE ER WELL ROCEPHIN 1GM IV, ZOFRAN 4MG IV X 1, MORPHINE 2MG IV X 1, AND A DUONEB TREATMENT. SHE WAS ADMITTED TO THE HOSPITAL FOR COPD EXACERBATION AND MULTIFOCAL PNEUMONIA. SHE WAS STARTED ON LEVAQUIN 750MG IV DAILY, AND IV FLUIDS WELL POTASSIUM REPLACEMENT PER PROTOCOL. WE PLANNED TO FOLLOW-UP WITH AM LABS AND CONTINUE TO MONITOR PATIENT. - Past Medical History Past Medical History: Cirrhosis, Anemia, COPD, Asthma, GERD, Arthritis Additional Medical History: Hepatitis, Alcoholic Cirrhosis, Gout - Past Surgical History Surgical History: Abdominal Surgery, Hysterectomy, Ortho Surgery Additional Surgical History: Bilateral Hip Replacement - Family History Family Medical History: Diabetes Mellitus, Cancer, PR, Heart Failure - Social History Does patient currently use any type of tobacco product: No Have you used tobacco products in the last 12 months: No Type of Tobacco Use: None Does any household member use tobacco: No Alcohol Use: None Drug Use: None - Medications Home Medications: aspirin Allergy (Verified 12/21/17 10:04) ibuprofen Allergy (Verified 12/21/17 10:04) - Review of Systems Constitutional: Weakness. denies: Fever Eyes: No Symptoms Reported ENT: No Symptoms Reported Respiratory: Cough, Shortness of Breath, SOB with Excertion. denies: Sputum, Wheezing Cardiovascular: No Symptoms Reported Gastrointestinal: Nausea, Abdominal Pain Genitourinary: No Symptoms Reported Musculoskeletal: See HPI (GENERALIZED ACHING ) Skin: No Symptoms Reported Neurological: Weakness - Physical Exam Vital Signs: Temperature 98.0 F Pulse Rate [Apical] 117 Pulse Rate 96 Respiratory Rate 26 Blood Pressure [Right Arm] 111/58 Blood Pressure [Left Arm] 105/58 Blood Pressure 103/63 O2 Sat by Pulse Oximetry 97 Oriented: Normal Eyes: Normal Ear: Normal Nose: Normal Throat: Normal Respiratory: Diminished Throughout Cardiovascular: Tachycardia. negative: S3, S4, Murmur : Normal Auscultation: Bowel Sounds: Normal Palpation: Normal Tenderness: Diffuse, Moderate, Other (DISTENTION ). negative: Rebound, Guarding, Rigidity Skin: Normal Musculoskeletal: Normal Psychiatric: Normal Mood Description: Calm Affect: Normal Speech Pattern: Clear - Assessment/Plan (1) Multifocal pneumonia Status: Acute Plan: LEVAQUIN 750MG IV DAILY, ROCEPHIN 1GM IV DAILY, RESPIRATORY TREATMENTS, SUPPLEMENTAL OXYGEN, CONTINUE TO MONITOR (2) COPD (chronic obstructive pulmonary disease) Qualifiers: COPD type: COPD with acute exacerbation Qualified Code(s): J44.1 - Chronic obstructive pulmonary disease with (acute) exacerbation Status: Acute Plan: RESPIRATORY TREATMENTS, SUPPLEMENTAL OXYGEN, IV ANTIBIOTICS, CONTINUE TO MONITOR (3) Abdominal pain Qualifiers: Abdominal location: epigastric Qualified Code(s): R10.13 - Epigastric pain Status: Acute Plan: CONTINUE TO MONITOR (4) Hypokalemia Status: Acute Plan: REPLACEMENT WITH PROTOCOL, CONTINUE TO MONITOR - Allergies Allergies/Adverse Reactions: Allergies Allergy/AdvReac Type Severity Reaction Status Date / Time aspirin Allergy Verified 12/21/17 10:04 ibuprofen Allergy Verified 12/21/17 10:04
[2018-05-03] MEDS: FORTAZ or TAZICEF VIAL INJ IVP SCH ×3 (10:56→21:07)
[2018-05-03] MEDS: MORPHINE SULFATE INJ 2 MG INJ IVP PRN ×3 (11:13→21:05)
[2018-05-03] MEDS ORDERED: NS 250 ML IV 250 ML IV ONE (17:47)
[2018-05-03] MEDS: MAGNESIUM SULFATE 1 GRAM/100 mL PREMIX 1 GM/100 ML BAG IV PRN ×4 (19:33→23:29)
[2018-05-03] MEDS: NS 1000 ML 1,000 ML IV SCH (19:34)
[2018-05-03] MEDS ORDERED: REGLAN INJ 10 MG VIAL IVP PRN (20:00)
[2018-05-03] MEDS ORDERED: ZOFRAN INJ 4 MG VIAL IVP PRN (20:00)
[2018-05-03 21:31] LABS: CREATINE KINASE 33 Units/L (26-192); CREATINE KINASE MB < 1.0 ng/mL (0-4.0); TROPONIN I < 0.02 ng/mL (0-1.5)
--- NOTE | 2018-05-03 22:05 | CT ---
CT abdomen and pelvis without contrast Indication: Abdominal pain Comparison: 02/07/2018 Technique: CT images of the abdomen and pelvis were obtained without contrast. Automatic exposure control was utilized. Findings: There is patchy dense consolidation within the lung bases, with associated air bronchograms, worst in the lower lobes, similar to the prior study. There is moderate to advanced lumbar spondylosis. No acute osseous abnormality. Evaluation of the abdominal pelvic viscera is limited without contrast. Previous cholecystectomy is noted. The liver is cirrhotic. No liver mass can be identified. Enlarged left upper quadrant varices are similar to prior. Spleen is nonenlarged. Within noncontrast limitations, the stomach, duodenum, pancreas, adrenals, and kidneys are unremarkable. No radiopaque urinary stones are identified. There is severe aortoiliac atherosclerosis, without aneurysm. There is a stable fat containing umbilical hernia. The pelvic structures are obscured by metallic streak artifact from the hip arthroplasties. Small volume pelvic ascites is noted. No marked thickening or dilatation of the visualized bowel appreciated. Urinary bladder appears to contain a Recinos catheter. Uterus is not identified. Impression: Limited noncontrast study, without evidence for acute intra-abdominal abnormality. Cirrhosis with large perisplenic varices. Small volume pelvic ascites. Bibasilar pneumonia. Reported By:
[2018-05-04] MEDS: MORPHINE SULFATE INJ 2 MG INJ IVP PRN ×5 (02:18→22:34)
[2018-05-04] MEDS: NS 1000 ML 1,000 ML IV SCH (02:18)
[2018-05-04 02:31] LABS: CKMB % 4.6 % (<4); CREATINE KINASE 22 Units/L (26-192); CREATINE KINASE MB < 1.0 ng/mL (0-4.0); TROPONIN I 0.03 ng/mL (0-1.5)
[2018-05-04] MEDS: LEVOPHED INJ 8 MG in D5W 250 ML IV 242 ML IV PRN (04:08)
[2018-05-04] MEDS: FORTAZ or TAZICEF VIAL INJ IVP SCH ×3 (05:57→21:42)
[2018-05-04 06:28] LABS: BASOPHILS % (AUTO) 0.2 % (0.2-1.0); LYMPHOCYTES # (AUTO) 0.1 X10^3/uL (1.3-2.9); MONOCYTES # (AUTO) 0.1 x10^3/uL (0.3-0.8); RED CELL DISTRIBUTION WIDTH 15.9 % (11.6-16.5)
[2018-05-04 06:38] LABS: ALANINE AMINOTRANSFERASE 33 Units/L (12-78); ALBUMIN 2.1 g/dL (3.4-5.0); ALKALINE PHOSPHATASE 64 Units/L (46-116); ASPARTATE AMINO TRANSFERASE 25 Units/L (15-37); BLOOD UREA NITROGEN 8 mg/dL (7-18); CALCIUM 9.8 mg/dL (8.5-10.1); CHLORIDE 104 mmol/L (98-107); COR CA(FOR HYPOALB) 11.3 mg/dL (8.5-10.1); MAGNESIUM 2.4 mg/dL (1.7-2.9); SODIUM 135 mmol/L (136-145); TOTAL PROTEIN 5.6 g/dL (6.4-8.2); eGFR NON BLACK RACES > 60 (>60)
[2018-05-04 06:41] LABS: EOSINOPHILS % (AUTO) 0.4 % (0.9-2.9); HEMATOCRIT 40.9 % (36.0-47.0); HEMOGLOBIN 13.5 g/dL (12.0-16.0); LACTIC ACID 2.6 mmol/L (0.4-2.0); LYMPHOCYTES % (AUTO) 6.9 % (21.0-51.0); MEAN CORPUSCULAR HEMOGLOBIN 29.8 pg (27.0-34.0); MEAN CORPUSCULAR HGB CONC 32.9 g/dL (33.0-35.0); MEAN CORPUSCULAR VOLUME 90.5 fL (80.0-100.0); MEAN PLATELET VOLUME 8.1 fL (7.4-11.0); NEUTROPHILS # (AUTO) 1.5 x10^3/uL (2.2-4.8); NEUTROPHILS % (AUTO) 86.5 % (42.0-75.0); PLATELET COUNT 78 X10^3/uL (150.0-450.0); RED BLOOD COUNT 4.52 X10^6/uL (3.5-5.4)
[2018-05-04 06:47] LABS: CKMB % 4.8 % (<4); CREATINE KINASE 21 Units/L (26-192); CREATINE KINASE MB < 1.0 ng/mL (0-4.0); TROPONIN I 0.02 ng/mL (0-1.5)
[2018-05-04 06:50] LABS: WHITE BLOOD COUNT 1.8 X10^3/uL (3.6-10.0)
[2018-05-04 07:03] LABS: BAND NEUTROPHILS % 12 % (0-10); METAMYELOCYTES % 10
[2018-05-04 07:04] LABS: PLATELET MORPHOLOGY COMMENT NORMAL (NORMAL)
[2018-05-04] MEDS: XOPENEX 1.25 MG/3 ML NEBULE NEB SCH ×4 (08:07→21:09)
[2018-05-04] MEDS: LEVAQUIN PREMIX IV 750 MG 750 MG/150 ML BAG IV SCH (08:14)
[2018-05-04] MEDS ORDERED: PriLOSEC PO PRN (09:41)
[2018-05-04] MEDS ORDERED: ATARAX TAB 25 MG PO PRN (09:41)
[2018-05-04] MEDS ORDERED: ANTIVERT TAB 25 MG PO PRN (09:41)
[2018-05-04] MEDS ORDERED: SPIRONOLACTONE PO SCH (09:45)
[2018-05-04] MEDS ORDERED: [UNRECOGNIZED DRUG - OTHER] PO SCH (09:45)
[2018-05-04] MEDS ORDERED: HYDROCHLOROTHIAZIDE PO SCH (09:45)
[2018-05-04] MEDS ORDERED: NEUPOGEN SC NR (10:00)
--- NOTE | 2018-05-04 11:17 | PCM.PROG ---
Progress Note - Progress Note for Day of Date of Exam: 05/03/18 - Subjective Subjective: WAS ADMITTED FOR PNEUMONIA, COPD EXACERBATION, AND A URINARY TRACT INFECTION. SHE REMAINS IN THE INTENSIVE CARE UNIT THIS MORNING. TODAY, SHE IS ALERT AND ORIENTED, LYING IN BED ON MORNING ROUNDS. SHE IS CURRENTLY UTILIZING THE BIPAP. APPARENTLY, HER OXYGEN SATURATIONS WERE STAYING IN THE 80S ON THE VENTIMASK YESTERDAY, THEREFORE, SHE WAS PLACED ON THE BIPAP. SHE WAS ALSO PLACED ON A LEVOPHED DRIP EARLY THIS MORNING DUE TO PERSISTENT HYPOTENSION. SHE IS NOTED WITH COMPLAINTS OF COUGH AND ABDOMINAL PAIN THIS MORNING. ON EXAMINATION, HEART IS REGULAR IN RATE AND RHYTHM. BILATERAL LUNGS ARE NOTED WITH SCATTERED WHEEZING AND RHONCHI. ABDOMEN IS DISTENDED AND NOTED WITH DIFFUSE TENDERNESS TO PALPATION. SHE IS NOTED WITH TRACE EDEMA TO HER LOWER EXTREMITIES. HER VITALS THIS MORNING ARE 98.5-96-27-97%BIPAP-106/64. LABS WERE OBTAINED. ABNORMAL LAB VALUES INCLUDE THE FOLLOWING: WBC 1.1, PLT COUNT 95, SODIUM 135, MAGNESIUM 1.4, TOTAL BILI 4.90, TOTAL PROTEIN 5.5, ALBUMIN 2.2. UR INE CULTURE AND BLOOD CULTURES ARE PENDING. SHE IS CURRENTLY RECEIVING ROCEPHIN AND LEVAQUIN WELL RESPIRATORY TREATMENTS AND CONTINUES ON THE LEVOPHED DRIP. WE WILL CONTINUE WITH CURRENT PLAN OF CARE TODAY AND OBTAIN AN ECHO, ABDOMEN/PELVIS CT WITHOUT CONTRAST, DISCONTINUE ROCEPHIN AND ADD FORTAZ 1GM IV Q8H. OTHERWISE, WE WILL FOLLOW UP WITH AM LABS AND CONTINUE TO MONITOR PATIENT. - Past Medical Family Social History Past Med/Fam/Surg Hx: No changes since H&P Allergies: Allergies aspirin Allergy (Verified 12/21/17 10:04) ibuprofen Allergy (Verified 12/21/17 10:04) - Review of Systems ROS: No change since H&P - Vital Signs and I&O's Vital Signs: Temperature 98.0 F Pulse Rate [Apical] 117 Pulse Rate 101 Respiratory Rate 26 Blood Pressure [Right Arm] 111/58 Blood Pressure [Left Arm] 105/58 Blood Pressure 95/53 O2 Sat by Pulse Oximetry 92 Intake and Output: Intake & Output 05/01/18 05/02/18 05/03/18 05/04/18 11:59 11:59 11:59 11:59 Intake Total 707 / 707 1934.00 / 1934.00 Output Total 350 / 350 1050 / 1050 Balance 357 / 357 884.00 / 884.00 - Physical Exam Oriented: Normal Eyes: Normal Ear: Normal Nose: Normal Throat: Normal Cardiovascular: Tachycardia. negative: S3, S4, Murmur : Normal Auscultation: Bowel Sounds: Normal Palpation: Normal Tenderness: Diffuse, Moderate, Other (DISTENTION ). negative: Rebound, Guarding, Rigidity Skin: Normal Musculoskeletal: Normal Psychiatric: Normal Mood Description: Calm Affect: Normal Speech Pattern: Clear, Appropriate - Laboratory and Diagnostics Result Diagrams: 05/04/18 06:10 05/04/18 06:10 Labs: 05/02/18 16:10 Blood Blood Culture - Preliminary 05/02/18 17:40 Blood Blood Culture - Preliminary 05/02/18 19:45 Urine,Catheterized Urine Culture - Final Escherichia Coli Laboratory WBC 1.8 X10^3/uL (3.6-10.0) L* 05/04/18 06:10 RBC 4.52 X10^6/uL (3.5-5.4) 05/04/18 06:10 Hgb 13.5 g/dL (12.0-16.0) 05/04/18 06:10 Hct 40.9 % (36.0-47.0) 05/04/18 06:10 MCV 90.5 fL (80.0-100.0) 05/04/18 06:10 MCH 29.8 pg (27.0-34.0) 05/04/18 06:10 MCHC 32.9 g/dL (33.0-35.0) L 05/04/18 06:10 RDW 15.9 % (11.6-16.5) 05/04/18 06:10 Plt Count 78 X10^3/uL (150.0-450.0) L 05/04/18 06:10 Plt Count Comment Decreased (ADEQUATE) A 05/04/18 06:10 MPV 8.1 fL (7.4-11.0) 05/04/18 06:10 Neut % (Auto) 86.5 % (42.0-75.0) H 05/04/18 06:10 Lymph % (Auto) 6.9 % (21.0-51.0) L 05/04/18 06:10 [place] % (Auto) 6.0 % (0.0-13.0) 05/04/18 06:10 Eos % (Auto) 0.4 % (0.9-2.9) L 05/04/18 06:10 Baso % (Auto) 0.2 % (0.2-1.0) 05/04/18 06:10 Neut # (Auto) 1.5 x10^3/uL (2.2-4.8) L 05/04/18 06:10 Lymph # (Auto) 0.1 X10^3/uL (1.3-2.9) L 05/04/18 06:10 [place] # (Auto) 0.1 x10^3/uL (0.3-0.8) L 05/04/18 06:10 Eos # (Auto) 0.0 x10^3/uL (0.0-0.2) 05/04/18 06:10 Baso # (Auto) 0.0 X10^3/uL (0.0-0.1) 05/04/18 06:10 Absolute Nucleated RBC 0.2 /100WBC 05/04/18 06:10 Total Counted 100 05/04/18 06:10 Neutrophils % (Manual) 58 % (39-76) 05/04/18 06:10 Band Neutrophils % 12 % (0-10) H 05/04/18 06:10 Lymphocytes % (Manual) 14 % (13-43) 05/04/18 06:10 Monocytes % (Manual) 6 % (4-9) 05/04/18 06:10 Eosinophils % (Manual) Cancelled 05/02/18 17:40 Basophils % (Manual) Cancelled 05/02/18 17:40 Metamyelocytes % 10 05/04/18 06:10 Myelocytes % Cancelled 05/02/18 17:40 Promyelocytes % Cancelled 05/02/18 17:40 Nucleated RBCs Cancelled 05/02/18 17:40 Atypical Lymphocytes Cancelled 05/02/18 17:40 Blast Cells Cancelled 05/02/18 17:40 Smudge Cells Cancelled 05/02/18 17:40 Toxic Granulation Cancelled 05/02/18 17:40 Dohle Bodies Cancelled 05/02/18 17:40 Deepak Rods Cancelled 05/02/18 17:40 Plt Clumps, EDTA Cancelled 05/02/18 17:40 Giant Platelets Cancelled 05/02/18 17:40 Plt Morphology Comment Normal (NORMAL) 05/04/18 06:10 RBC Morphology Normal (NORMAL) 05/04/18 06:10 Dimorphic RBCs Cancelled 05/02/18 17:40 Polychromasia Cancelled 05/02/18 17:40 Hypochromasia Cancelled 05/02/18 17:40 Poikilocytosis Cancelled 05/02/18 17:40 Basophilic Stippling Cancelled 05/02/18 17:40 Anisocytosis Cancelled 05/02/18 17:40 Microcytosis Cancelled 05/02/18 17:40 Macrocytosis Cancelled 05/02/18 17:40 Spherocytes Cancelled 05/02/18 17:40 Pappenheimer Bodies Cancelled 05/02/18 17:40 Sickle Cells Cancelled 05/02/18 17:40 Target Cells Cancelled 05/02/18 17:40 Tear Drop Cells Cancelled 05/02/18 17:40 Ovalocytes Cancelled 05/02/18 17:40 Stomatocytes Cancelled 05/02/18 17:40 Helmet Cells Cancelled 05/02/18 17:40 [place] Bodies Cancelled 05/02/18 17:40 [place] Rings Cancelled 05/02/18 17:40 Pound Cells Cancelled 05/02/18 17:40 Crenated Cell Cancelled 05/02/18 17:40 Acanthocytes (Spur) Cancelled 05/02/18 17:40 Rouleaux Cancelled 05/02/18 17:40 Schistocytes Cancelled 05/02/18 17:40 D-Dimer 2480 ng/mL (0-400) H* 05/02/18 19:50 Sample Site Lbr 05/02/18 17:49 ABG pH 7.390 (7.35-7.45) 05/02/18 17:49 ABG pCO2 39.0 mmHg (35.0-45.0) 05/02/18 17:49 ABG pO2 94.0 mmHg (80.0-100.0) 05/02/18 17:49 ABG HCO3 23.6 mmol/L (22-26) 05/02/18 17:49 ABG O2 Saturation 97.0 % (90-100) 05/02/18 17:49 ABG Base Excess -1.2 mmol/L (-2.0-2.0) 05/02/18 17:49 Aries Test N/a 05/02/18 17:49 A-a Gradient 570.0 mmHg 05/02/18 17:49 FiO2 100 11 17:49 Blood Gas Comments Pt anne marie well cdn 05/02/18 17:49 Sodium 135 mmol/L (136-145) L 05/04/18 06:10 Corrected Sodium TNP 05/04/18 06:10 Potassium 3.7 mmol/L (3.5-5.1) 05/04/18 06:10 Chloride 104 mmol/L (98-107) 05/04/18 06:10 Carbon Dioxide 25.0 mmol/L (21-32) 05/04/18 06:10 BUN 8 mg/dL (7-18) 05/04/18 06:10 Creatinine 0.60 mg/dL (0.55-1.02) 05/04/18 06:10 Est GFR (MDRD) Af Amer > 60 (>60) 05/04/18 06:10 Est GFR (MDRD) Non-Af > 60 (>60) 05/04/18 06:10 Glucose 77 mg/dL (65-99) 05/04/18 06:10 Lactic Acid 2.6 mmol/L (0.4-2.0) H 05/04/18 06:10 Calcium 9.8 mg/dL (8.5-10.1) 05/04/18 06:10 Corrected Calcium 11.3 mg/dL (8.5-10.1) H 05/04/18 06:10 Magnesium 2.4 mg/dL (1.7-2.9) 05/04/18 06:10 Total Bilirubin 4.90 mg/dL (0.2-1.0) H 05/04/18 06:10 AST 25 Units/L (15-37) 05/04/18 06:10 ALT 33 Units/L (12-78) 05/04/18 06:10 Alkaline Phosphatase 64 Units/L (46-116) 05/04/18 06:10 Creatine Kinase 21 Units/L (26-192) L 05/04/18 06:10 CK-MB (CK-2) < 1.0 ng/mL (0-4.0) 05/04/18 06:10 CK/CKMB % Calc 4.8 % (<4) 05/04/18 06:10 Troponin I 0.02 ng/mL (0-1.5) 05/04/18 06:10 B-Natriuretic Peptide 529 pg/mL (0-79) H* 05/02/18 19:50 Total Protein 5.6 g/dL (6.4-8.2) L 05/04/18 06:10 Albumin 2.1 g/dL (3.4-5.0) L 05/04/18 06:10 Globulin 3.5 g/dL (2.5-4.5) 05/04/18 06:10 Albumin/Globulin Ratio 0.6 Ratio (1.1-2.1) L 05/04/18 06:10 Specimen Type Catherized urine 05/02/18 19:45 Urine Color Ivana (YELLOW) 05/02/18 19:45 Urine Appearance Hazy (CLEAR) 05/02/18 19:45 Urine pH 6.0 (5.0 - 8.0) 05/02/18 19:45 Ur Specific [place] 1.020 (1.000-1.030) 05/02/18 19:45 Urine Protein 2+ (NEGATIVE) 05/02/18 19:45 Urine Glucose (UA) Negative (NEGATIVE) 05/02/18 19:45 Urine Ketones 1+ (NEGATIVE) 05/02/18 19:45 Urine Occult Blood 1+ (NEGATIVE) 05/02/18 19:45 Urine Nitrite Positive (NEGATIVE) 05/02/18 19:45 Urine Bilirubin 2+ (NEGATIVE) 05/02/18 19:45 Urine Urobilinogen 2+ (NORMAL) 05/02/18 19:45 Ur Leukocyte Esterase 1+ (NEGATIVE) 05/02/18 19:45 Urine RBC 3-5 /HPF (NONE SEEN) 05/02/18 19:45 Urine WBC 5-10 /HPF (NONE SEEN) 05/02/18 19:45 Ur Squamous Epith Cells Few /HPF (NEGATIVE) 05/02/18 19:45 Urine Bacteria 2+ /HPF (NEGATIVE) 05/02/18 19:45 Urine Mucus Few /HPF (NEGATIVE) 05/02/18 19:45 Ur Culture Indicated? Yes/culture set up 05/02/18 19:45 - Plan (1) Multifocal pneumonia Status: Acute Plan: LEVAQUIN 750MG IV DAILY, ROCEPHIN 1GM IV DAILY, RESPIRATORY TREATMENTS, SUPPLEMENTAL OXYGEN, CONTINUE TO MONITOR (2) COPD (chronic obstructive pulmonary disease) Status: Acute Qualifiers: COPD type: COPD with acute exacerbation Qualified Code(s): J44.1 - Chronic obstructive pulmonary disease with (acute) exacerbation Plan: RESPIRATORY TREATMENTS, SUPPLEMENTAL OXYGEN, IV ANTIBIOTICS, CONTINUE TO MONITOR (3) Abdominal pain Status: Acute Qualifiers: Abdominal location: epigastric Qualified Code(s): R10.13 - Epigastric pain Plan: CONTINUE TO MONITOR (4) Hypokalemia Status: Acute Plan: REPLACEMENT WITH PROTOCOL, CONTINUE TO MONITOR (5) Hepatitis Status: Chronic Plan: CONTINUE HOME MEDS, CONTINUE TO MONITOR (6) Cirrhosis Status: Chronic Qualifiers: Hepatic cirrhosis type: unspecified hepatic cirrhosis Ascites presence: with ascites Qualified Code(s): K74.60 - Unspecified cirrhosis of liver; R18.8 - Other ascites Plan: CONTINUE HOME MEDS, CONTINUE TO MONITOR
--- NOTE | 2018-05-04 11:42 | RAD ---
HISTORY: Shortness of breath Study: Single view of the chest. Comparison: CT 05/02/2018 demonstrating bilateral pneumonia Findings: Mild cardiomegaly. Streaky bibasilar airspace opacities. Osseous structures demonstrate no acute abnormality. IMPRESSION: 1. Streaky bibasilar airspace opacities consistent with patient's known pneumonia. Reported By:
[2018-05-04] MEDS: PERIACTIN TAB 4 MG PO SCH ×2 (12:04→21:41)
[2018-05-04] MEDS: HYDROCHLOROTHIAZIDE 25 MG TAB PO SCH (12:04)
[2018-05-04] MEDS: ALDACTONE TAB 25 MG PO SCH (12:04)
[2018-05-04] MEDS: ZYLOPRIM PO SCH (12:04)
[2018-05-04] MEDS: DIFLUCAN 200 MG IV PREMIX* 200 MG/100 ML BAG IV SCH (12:05)
[2018-05-04] MEDS: VITAMIN D (1.25MG) PO SCH (12:05)
[2018-05-04] MEDS: MAGIC MOUTHWASH MT SCH ×3 (14:14→22:00)
[2018-05-04] MEDS: K-RIDER 10 MEQ/NS 100 ML 10 MEQ/100 ML BAG IV PRN ×2 (17:40→19:04)
[2018-05-04] MEDS ORDERED: PATIENT'S HOME MEDICATION (Escitalopram Oxalate [Escitalopram Oxalate] 20 MG) PO SCH (21:00)
[2018-05-04] MEDS ORDERED: LEXAPRO ONE (21:20)
[2018-05-04] MEDS: NEURONTIN TAB 600 MG PO SCH (21:41)
[2018-05-04] MEDS: LEXAPRO PO SCH (21:41)
[2018-05-04] MEDS: PREVACID PO SCH (21:42)
[2018-05-05] MEDS: K-DUR TAB 20 MEQ PO SCH ×2 (03:49→09:14)
[2018-05-05] MEDS: MORPHINE SULFATE INJ 2 MG INJ IVP PRN ×5 (03:49→21:03)
[2018-05-05] MEDS: NS 1000 ML 1,000 ML IV SCH (04:39)
[2018-05-05 06:12] LABS: BASOPHILS % (AUTO) 0.3 % (0.2-1.0); EOSINOPHILS % (AUTO) 0.2 % (0.9-2.9); HEMATOCRIT 40.4 % (36.0-47.0); HEMOGLOBIN 13.5 g/dL (12.0-16.0); LYMPHOCYTES # (AUTO) 0.2 X10^3/uL (1.3-2.9); MEAN CORPUSCULAR HEMOGLOBIN 30.2 pg (27.0-34.0); MEAN CORPUSCULAR HGB CONC 33.4 g/dL (33.0-35.0); MEAN CORPUSCULAR VOLUME 90.5 fL (80.0-100.0); MEAN PLATELET VOLUME 8.2 fL (7.4-11.0); MONOCYTES # (AUTO) 0 x10^3/uL (0.3-0.8); MONOCYTES % (AUTO) 0.3 % (0.0-13.0); NEUTROPHILS # (AUTO) 5.3 x10^3/uL (2.2-4.8); NEUTROPHILS % (AUTO) 95.2 % (42.0-75.0); PLATELET COUNT 68 X10^3/uL (150.0-450.0); RED BLOOD COUNT 4.46 X10^6/uL (3.5-5.4); RED CELL DISTRIBUTION WIDTH 15.7 % (11.6-16.5); WHITE BLOOD COUNT 5.6 X10^3/uL (3.6-10.0)
[2018-05-05 06:20] LABS: ALANINE AMINOTRANSFERASE 29 Units/L (12-78); ALKALINE PHOSPHATASE 72 Units/L (46-116); ASPARTATE AMINO TRANSFERASE 31 Units/L (15-37); BLOOD UREA NITROGEN 9 mg/dL (7-18); CALCIUM 10.7 mg/dL (8.5-10.1); CARBON DIOXIDE 28.7 mmol/L (21-32); CHLORIDE 103 mmol/L (98-107); COR CA(FOR HYPOALB) 12.3 mg/dL (8.5-10.1); CREATININE 0.47 mg/dL (0.55-1.02); SODIUM 136 mmol/L (136-145); TOTAL PROTEIN 5.6 g/dL (6.4-8.2); eGFR NON BLACK RACES > 60 (>60)
[2018-05-05 06:42] LABS: BAND NEUTROPHILS % 22 % (0-10); METAMYELOCYTES % 10; PLATELET MORPHOLOGY COMMENT NORMAL (NORMAL)
[2018-05-05] MEDS: FORTAZ or TAZICEF VIAL INJ IVP SCH ×3 (06:49→21:04)
--- NOTE | 2018-05-05 08:53 | RAD ---
HISTORY: Shortness of breath. Prior history of asthma, CHF, COPD, cirrhosis. Study: Single-view chest Comparison: 05/04/2018. Findings: Trachea is midline. There is cardiomegaly with atherosclerotic calcification and uncoiling of the aortic arch. Prominence of the main pulmonary artery segment is again seen. There are changes of COPD bilaterally with increased interstitial markings. Further increase in bibasilar foci of pneumonia is appreciated. Small right pleural effusion may be present. IMPRESSION: Cardiomegaly with aortic uncoiling. COPD with slight further increase in bibasilar foci of pneumonia. A small right pleural effusion may be present. Reported By:
[2018-05-05] MEDS: MAGIC MOUTHWASH MT SCH ×4 (09:01→20:53)
[2018-05-05] MEDS: HYDROCHLOROTHIAZIDE 25 MG TAB PO SCH (09:01)
[2018-05-05] MEDS: LEVAQUIN PREMIX IV 750 MG 750 MG/150 ML BAG IV SCH (09:01)
[2018-05-05] MEDS: ZYLOPRIM PO SCH (09:01)
[2018-05-05] MEDS: PERIACTIN TAB 4 MG PO SCH ×2 (09:01→20:53)
[2018-05-05] MEDS: MILK OF MAGNESIA PO SCH (09:01)
[2018-05-05] MEDS: ALDACTONE TAB 25 MG PO SCH (09:01)
[2018-05-05] MEDS: XOPENEX 1.25 MG/3 ML NEBULE NEB SCH ×4 (09:21→21:43)
[2018-05-05] MEDS: DIFLUCAN 200 MG IV PREMIX* 200 MG/100 ML BAG IV SCH (12:47)
[2018-05-05] MEDS ORDERED: LEXAPRO ONE (20:04)
[2018-05-05] MEDS: COLACE CAP 100 MG PO SCH (20:52)
[2018-05-05] MEDS: PREVACID PO SCH (20:53)
[2018-05-05] MEDS: NEURONTIN TAB 600 MG PO SCH (20:53)
[2018-05-05] MEDS: LEXAPRO PO SCH (20:53)
[2018-05-06] MEDS: NS 1000 ML 1,000 ML IV SCH (05:35)
[2018-05-06] MEDS: FORTAZ or TAZICEF VIAL INJ IVP SCH ×3 (05:35→21:09)
[2018-05-06] MEDS: MORPHINE SULFATE INJ 2 MG INJ IVP PRN (05:36)
--- NOTE | 2018-05-06 06:02 | RAD ---
Chest, one view Indication: Shortness of breath Comparison: 05/05/2016 Findings: There is stable enlargement of the cardiac silhouette and prominent of the main pulmonary artery. Chronic emphysematous changes again noted. Bibasilar airspace disease with small associated effusions are unchanged. Upper lungs remain clear. No pneumothorax. Impression: Stable small bilateral effusions and bibasilar airspace disease, compatible with pneumonia. Reported By:
[2018-05-06 06:11] LABS: BASOPHILS % (AUTO) 0.2 % (0.2-1.0); EOSINOPHILS % (AUTO) 0.2 % (0.9-2.9); HEMOGLOBIN 13.8 g/dL (12.0-16.0); LYMPHOCYTES # (AUTO) 0.3 X10^3/uL (1.3-2.9); LYMPHOCYTES % (AUTO) 5.6 % (21.0-51.0); MEAN CORPUSCULAR HEMOGLOBIN 30.3 pg (27.0-34.0); MEAN CORPUSCULAR HGB CONC 33.5 g/dL (33.0-35.0); MEAN CORPUSCULAR VOLUME 90.3 fL (80.0-100.0); MEAN PLATELET VOLUME 8.3 fL (7.4-11.0); MONOCYTES # (AUTO) 0.3 x10^3/uL (0.3-0.8); NEUTROPHILS # (AUTO) 5.3 x10^3/uL (2.2-4.8); PLATELET COUNT 50 X10^3/uL (150.0-450.0); RED BLOOD COUNT 4.54 X10^6/uL (3.5-5.4); WHITE BLOOD COUNT 5.9 X10^3/uL (3.6-10.0)
[2018-05-06 06:30] LABS: SODIUM 136 mmol/L (136-145)
[2018-05-06 07:04] LABS: BAND NEUTROPHILS % 6 % (0-10); METAMYELOCYTES % 5; PLATELET MORPHOLOGY COMMENT NORMAL (NORMAL)
[2018-05-06 07:06] LABS: ALANINE AMINOTRANSFERASE 26 Units/L (12-78); ALBUMIN 1.8 g/dL (3.4-5.0); ALKALINE PHOSPHATASE 75 Units/L (46-116); ASPARTATE AMINO TRANSFERASE 22 Units/L (15-37); BLOOD UREA NITROGEN 8 mg/dL (7-18); CALCIUM 10.5 mg/dL (8.5-10.1); CARBON DIOXIDE 30.1 mmol/L (21-32); CHLORIDE 103 mmol/L (98-107); COR CA(FOR HYPOALB) 12.3 mg/dL (8.5-10.1); CREATININE 0.44 mg/dL (0.55-1.02); TOTAL PROTEIN 5.2 g/dL (6.4-8.2); eGFR NON BLACK RACES > 60 (>60)
[2018-05-06] MEDS: XOPENEX 1.25 MG/3 ML NEBULE NEB SCH ×4 (09:16→21:55)
[2018-05-06] MEDS: DIFLUCAN 200 MG IV PREMIX* 200 MG/100 ML BAG IV SCH (10:02)
[2018-05-06] MEDS: LEVAQUIN PREMIX IV 750 MG 750 MG/150 ML BAG IV SCH (10:03)
[2018-05-06] MEDS: ALDACTONE TAB 25 MG PO SCH ×2 (13:23→17:17)
[2018-05-06] MEDS: MAGIC MOUTHWASH MT SCH ×3 (13:24→20:41)
[2018-05-06] MEDS: K-DUR TAB 20 MEQ PO SCH ×2 (13:24→17:20)
[2018-05-06] MEDS: HYDROCHLOROTHIAZIDE 25 MG TAB PO SCH ×2 (13:24→17:20)
[2018-05-06] MEDS: VITAMIN D (1.25MG) PO SCH ×2 (13:25→17:18)
[2018-05-06] MEDS: ZYLOPRIM PO SCH ×2 (13:25→17:18)
[2018-05-06] MEDS: PERIACTIN TAB 4 MG PO SCH ×3 (13:25→20:41)
[2018-05-06] MEDS: MILK OF MAGNESIA PO SCH (13:25)
[2018-05-06] MEDS ORDERED: TORADOL 30 MG VIAL IVP ONE (16:37)
[2018-05-06] MEDS ORDERED: TORADOL 30 MG VIAL ONE (16:39)
--- NOTE | 2018-05-06 19:55 | PCM.PROG ---
Progress Note Progress Note for Day of Date of Exam: 05/06/18 Subjective Subjective: WAS ADMITTED FOR PNEUMONIA, COPD EXACERBATION, AND A URINARY TRACT INFECTION. SHE REMAINS IN THE INTENSIVE CARE UNIT. TODAY, SHE IS ALERT AND ORIENTED AND WEAK. SHE HURTS ALL OVER.SHE IS CURRENTLY UTILIZING THE BIPAP. SHE IS WEAK AND EATING POORLY. URINE CULTURE GREW E COLI AND BLOOD CULTURE GREW STREP PNEUMONIA. LUNGS HAVE SCATTERED WHEEZING AND RHONCHI. ABDOMEN NOTED TO HAVE DIFFUSE TENDERNESS ON PALPATION. TRACE EDEMA TO HER LOWER EXTREMITIES. HER BLOOD PRESSURE IS LOW THIS AM AND IS SLIGHTLY SLEEPY. ABNORMAL LAB REVIEWED. SHE IS CURRENTLY RECEIVING ROCEPHIN AND LEVAQUIN WELL RESPIRATORY TREATMENTS. WE WILL CONTINUE WITH CURRENT PLAN OF CARE. WILL CONTINUE WITH FORTAZ 1GM IV Q8H LEVAQUIN, AND AM LABS. WILL CONTINUE TO MONITOR PATIENT. Past Medical Family Social History Past Med/Fam/Surg Hx: No changes since H&P Allergies: Allergies aspirin Allergy (Verified 12/21/17 10:04) ibuprofen Allergy (Verified 12/21/17 10:04) Review of Systems ROS: No change since H&P Vital Signs and I&O's Vital Signs: Temperature 98.5 F Pulse Rate [Apical] 117 Pulse Rate 103 Respiratory Rate 27 Blood Pressure [Right Arm] 111/58 Blood Pressure [Left Arm] 105/58 Blood Pressure 109/64 O2 Sat by Pulse Oximetry 95 Intake and Output: Intake & Output 05/03/18 05/04/18 05/05/18 05/06/18 23:59 23:59 23:59 23:59 Intake Total 1693.25 / 1693.25 2570.75 / 2570.75 1566 / 1566 894 / 894 Output Total 950 / 950 1300 / 1300 1700 / 1700 600 / 600 Balance 743.25 / 743.25 1270.75 / 1270.75 -134 / -134 294 / 294 Physical Exam Oriented: Normal Eyes: Normal Ear: Normal Nose: Normal Throat: Normal Cardiovascular: Tachycardia; negative S3, S4 and Murmur : Normal Auscultation: Bowel Sounds: Normal Tenderness: Diffuse, Moderate and Other (DISTENTION ); negative Rebound, Guarding and Rigidity Skin: Normal Musculoskeletal: Normal Psychiatric: Normal Mood Description: Calm Affect: Normal Speech Pattern: Appropriate Laboratory and Diagnostics Result Diagrams: 05/12/18 04:52 05/12/18 05:00 Labs: 05/05/18 11:24 Sputum - Expectorated Sputum Sputum Culture - Preliminary 05/05/18 11:24 Sputum - Expectorated Sputum - Final 05/02/18 17:40 Blood Blood Culture - Final Streptococcus Pneumoniae 05/02/18 16:10 Blood Blood Culture - Preliminary 05/02/18 19:45 Urine,Catheterized Urine Culture - Final Escherichia Coli Laboratory WBC 5.9 X10^3/uL (3.6-10.0) 05/06/18 04:25 RBC 4.54 X10^6/uL (3.5-5.4) 05/06/18 04:25 Hgb 13.8 g/dL (12.0-16.0) 05/06/18 04:25 Hct 41.0 % (36.0-47.0) 05/06/18 04:25 MCV 90.3 fL (80.0-100.0) 05/06/18 04:25 MCH 30.3 pg (27.0-34.0) 05/06/18 04:25 MCHC 33.5 g/dL (33.0-35.0) 05/06/18 04:25 RDW 16.0 % (11.6-16.5) 05/06/18 04:25 Plt Count 50 X10^3/uL (150.0-450.0) L 05/06/18 04:25 Plt Count Comment Decreased (ADEQUATE) A 05/06/18 04:25 MPV 8.3 fL (7.4-11.0) 05/06/18 04:25 Neut % (Auto) 89.0 % (42.0-75.0) H 05/06/18 04:25 Lymph % (Auto) 5.6 % (21.0-51.0) L 05/06/18 04:25 Person % (Auto) 5.0 % (0.0-13.0) 05/06/18 04:25 Eos % (Auto) 0.2 % (0.9-2.9) L 05/06/18 04:25 Baso % (Auto) 0.2 % (0.2-1.0) 05/06/18 04:25 Neut # (Auto) 5.3 x10^3/uL (2.2-4.8) H 05/06/18 04:25 Lymph # (Auto) 0.3 X10^3/uL (1.3-2.9) L 05/06/18 04:25 Person # (Auto) 0.3 x10^3/uL (0.3-0.8) 05/06/18 04:25 Eos # (Auto) 0.0 x10^3/uL (0.0-0.2) 05/06/18 04:25 Baso # (Auto) 0.0 X10^3/uL (0.0-0.1) 05/06/18 04:25 Absolute Nucleated RBC 0.1 /100WBC 05/06/18 04:25 Total Counted 100 05/06/18 04:25 Neutrophils % (Manual) 70 % (39-76) 05/06/18 04:25 Band Neutrophils % 6 % (0-10) 05/06/18 04:25 Lymphocytes % (Manual) 10 % (13-43) L 05/06/18 04:25 Monocytes % (Manual) 9 % (4-9) 05/06/18 04:25 Eosinophils % (Manual) Cancelled 05/02/18 17:40 Basophils % (Manual) Cancelled 05/02/18 17:40 Metamyelocytes % 5 05/06/18 04:25 Myelocytes % Cancelled 05/02/18 17:40 Promyelocytes % Cancelled 05/02/18 17:40 Nucleated RBCs Cancelled 05/02/18 17:40 Atypical Lymphocytes Cancelled 05/02/18 17:40 Blast Cells Cancelled 05/02/18 17:40 Smudge Cells Cancelled 05/02/18 17:40 Toxic Granulation Cancelled 05/02/18 17:40 Dohle Bodies Cancelled 05/02/18 17:40 Deepak Rods Cancelled 05/02/18 17:40 Plt Clumps, EDTA Cancelled 05/02/18 17:40 Giant Platelets Cancelled 05/02/18 17:40 Plt Morphology Comment Normal (NORMAL) 05/06/18 04:25 RBC Morphology Normal (NORMAL) 05/06/18 04:25 Dimorphic RBCs Cancelled 05/02/18 17:40 Polychromasia Cancelled 05/02/18 17:40 Hypochromasia Cancelled 05/02/18 17:40 Poikilocytosis Cancelled 05/02/18 17:40 Basophilic Stippling Cancelled 05/02/18 17:40 Anisocytosis Cancelled 05/02/18 17:40 Microcytosis Cancelled 05/02/18 17:40 Macrocytosis Cancelled 05/02/18 17:40 Spherocytes Cancelled 05/02/18 17:40 Pappenheimer Bodies Cancelled 05/02/18 17:40 Sickle Cells Cancelled 05/02/18 17:40 Target Cells Cancelled 05/02/18 17:40 Tear Drop Cells Cancelled 05/02/18 17:40 Ovalocytes Cancelled 05/02/18 17:40 Stomatocytes Cancelled 05/02/18 17:40 Helmet Cells Cancelled 05/02/18 17:40 Acevedo-[place] Bodies Cancelled 05/02/18 17:40 [place] Rings Cancelled 05/02/18 17:40 Elijah Cells Cancelled 05/02/18 17:40 Crenated Cell Cancelled 05/02/18 17:40 Acanthocytes (Spur) Cancelled 05/02/18 17:40 Rouleaux Cancelled 05/02/18 17:40 Schistocytes Cancelled 05/02/18 17:40 D-Dimer 2480 ng/mL (0-400) H* 05/02/18 19:50 Sample Site Lbr 05/02/18 17:49 ABG pH 7.390 (7.35-7.45) 05/02/18 17:49 ABG pCO2 39.0 mmHg (35.0-45.0) 05/02/18 17:49 ABG pO2 94.0 mmHg (80.0-100.0) 05/02/18 17:49 ABG HCO3 23.6 mmol/L (22-26) 05/02/18 17:49 ABG O2 Saturation 97.0 % (90-100) 05/02/18 17:49 ABG Base Excess -1.2 mmol/L (-2.0-2.0) 05/02/18 17:49 Aries Test N/a 05/02/18 17:49 A-a Gradient 570.0 mmHg 05/02/18 17:49 FiO2 100 05/02/18 17:49 Blood Gas Comments Pt anne marie well cdn 05/02/18 17:49 Sodium 136 mmol/L (136-145) 05/06/18 04:25 Corrected Sodium TNP 05/06/18 04:25 Potassium 4.3 mmol/L (3.5-5.1) 05/06/18 04:25 Chloride 103 mmol/L (98-107) 05/06/18 04:25 Carbon Dioxide 30.1 mmol/L (21-32) 05/06/18 04:25 BUN 8 mg/dL (7-18) 05/06/18 04:25 Creatinine 0.44 mg/dL (0.55-1.02) L 05/06/18 04:25 Est GFR (MDRD) Af Amer > 60 (>60) 05/06/18 04:25 Est GFR (MDRD) Non-Af > 60 (>60) 05/06/18 04:25 Glucose 109 mg/dL (65-99) H 05/06/18 04:25 POC Glucose (mg/dL) 112 mg/dL (65-99) H 05/06/18 16:16 Lactic Acid 2.6 mmol/L (0.4-2.0) H 05/04/18 06:10 Calcium 10.5 mg/dL (8.5-10.1) H 05/06/18 04:25 Corrected Calcium 12.3 mg/dL (8.5-10.1) H 05/06/18 04:25 Magnesium 2.4 mg/dL (1.7-2.9) 05/04/18 06:10 Total Bilirubin 2.80 mg/dL (0.2-1.0) H 05/06/18 04:25 AST 22 Units/L (15-37) 05/06/18 04:25 ALT 26 Units/L (12-78) 05/06/18 04:25 Alkaline Phosphatase 75 Units/L (46-116) 05/06/18 04:25 Creatine Kinase 21 Units/L (26-192) L 05/04/18 06:10 CK-MB (CK-2) < 1.0 ng/mL (0-4.0) 05/04/18 06:10 CK/CKMB % Calc 4.8 % (<4) 05/04/18 06:10 Troponin I 0.02 ng/mL (0-1.5) 05/04/18 06:10 B-Natriuretic Peptide 529 pg/mL (0-79) H* 05/02/18 19:50 Total Protein 5.2 g/dL (6.4-8.2) L 05/06/18 04:25 Albumin 1.8 g/dL (3.4-5.0) L 05/06/18 04:25 Globulin 3.4 g/dL (2.5-4.5) 05/06/18 04:25 Albumin/Globulin Ratio 0.5 Ratio (1.1-2.1) L 05/06/18 04:25 Specimen Type Catherized urine 05/02/18 19:45 Urine Color Ivana (YELLOW) 05/02/18 19:45 Urine Appearance Hazy (CLEAR) 05/02/18 19:45 Urine pH 6.0 (5.0 - 8.0) 05/02/18 19:45 Ur Specific [place] 1.020 (1.000-1.030) 05/02/18 19:45 Urine Protein 2+ (NEGATIVE) 05/02/18 19:45 Urine Glucose (UA) Negative (NEGATIVE) 05/02/18 19:45 Urine Ketones 1+ (NEGATIVE) 05/02/18 19:45 Urine Occult Blood 1+ (NEGATIVE) 05/02/18 19:45 Urine Nitrite Positive (NEGATIVE) 05/02/18 19:45 Urine Bilirubin 2+ (NEGATIVE) 05/02/18 19:45 Urine Urobilinogen 2+ (NORMAL) 05/02/18 19:45 Ur Leukocyte Esterase 1+ (NEGATIVE) 05/02/18 19:45 Urine RBC 3-5 /HPF (NONE SEEN) 05/02/18 19:45 Urine WBC 5-10 /HPF (NONE SEEN) 05/02/18 19:45 Ur Squamous Epith Cells Few /HPF (NEGATIVE) 05/02/18 19:45 Urine Bacteria 2+ /HPF (NEGATIVE) 05/02/18 19:45 Urine Mucus Few /HPF (NEGATIVE) 05/02/18 19:45 Ur Culture Indicated? Yes/culture set up 05/02/18 19:45 Plan (1) Multifocal pneumonia: Status: Acute Plan: LEVAQUIN 750MG IV DAILY, ROCEPHIN 1GM IV DAILY, RESPIRATORY TREATMENTS, SUPPLEMENTAL OXYGEN, CONTINUE TO MONITOR (2) COPD (chronic obstructive pulmonary disease): Status: Acute Qualifiers: COPD type: COPD with acute exacerbation Chronic bronchitis type: Emphysema type: Qualified Code(s): J44.1 - Chronic obstructive pulmonary disease with (acute) exacerbation Plan: RESPIRATORY TREATMENTS, SUPPLEMENTAL OXYGEN, IV ANTIBIOTICS, CONTINUE TO MONITOR (3) Abdominal pain: Status: Acute Qualifiers: Abdominal location: epigastric Qualified Code(s): R10.13 - Epigastric pain Plan: CONTINUE TO MONITOR (4) Hypokalemia: Status: Resolved Plan: REPLACEMENT WITH PROTOCOL, CONTINUE TO MONITOR (5) Hepatitis: Status: Chronic Plan: CONTINUE HOME MEDS, CONTINUE TO MONITOR (6) Cirrhosis: Status: Chronic Qualifiers: Ascites presence: with ascites Hepatic cirrhosis type: unspecified hepatic cirrhosis Qualified Code(s): K74.60 - Unspecified cirrhosis of liver; R18.8 - Other ascites Plan: CONTINUE HOME MEDS, CONTINUE TO MONITOR
[2018-05-06] MEDS ORDERED: LEXAPRO ONE (20:34)
[2018-05-06] MEDS: COLACE CAP 100 MG PO SCH (20:40)
[2018-05-06] MEDS: LEXAPRO PO SCH (20:41)
[2018-05-06] MEDS: PREVACID PO SCH (20:41)
[2018-05-06] MEDS: NEURONTIN TAB 600 MG PO SCH (20:41)
[2018-05-06] MEDS: TORADOL 15 MG VIAL IVP PRN (22:45)
[2018-05-07] MEDS: NS 1000 ML 1,000 ML IV SCH (03:22)
[2018-05-07] MEDS: FORTAZ or TAZICEF VIAL INJ IVP SCH ×3 (05:41→22:05)
[2018-05-07 06:08] LABS: BASOPHILS % (AUTO) 0.1 % (0.2-1.0); EOSINOPHILS % (AUTO) 0.4 % (0.9-2.9); HEMATOCRIT 41.3 % (36.0-47.0); HEMOGLOBIN 13.7 g/dL (12.0-16.0); LYMPHOCYTES # (AUTO) 0.7 X10^3/uL (1.3-2.9); LYMPHOCYTES % (AUTO) 7.4 % (21.0-51.0); MEAN CORPUSCULAR HGB CONC 33.1 g/dL (33.0-35.0); MEAN CORPUSCULAR VOLUME 90.4 fL (80.0-100.0); MEAN PLATELET VOLUME 8.8 fL (7.4-11.0); MONOCYTES # (AUTO) 0.6 x10^3/uL (0.3-0.8); MONOCYTES % (AUTO) 6.8 % (0.0-13.0); NEUTROPHILS # (AUTO) 7.6 x10^3/uL (2.2-4.8); NEUTROPHILS % (AUTO) 85.3 % (42.0-75.0); PLATELET COUNT 52 X10^3/uL (150.0-450.0); RED BLOOD COUNT 4.57 X10^6/uL (3.5-5.4); RED CELL DISTRIBUTION WIDTH 16.3 % (11.6-16.5); WHITE BLOOD COUNT 8.9 X10^3/uL (3.6-10.0)
[2018-05-07 06:19] LABS: ALANINE AMINOTRANSFERASE 21 Units/L (12-78); ALBUMIN 1.7 g/dL (3.4-5.0); ALKALINE PHOSPHATASE 80 Units/L (46-116); ASPARTATE AMINO TRANSFERASE 20 Units/L (15-37); BLOOD UREA NITROGEN 16 mg/dL (7-18); CALCIUM 10.8 mg/dL (8.5-10.1); CHLORIDE 105 mmol/L (98-107); COR CA(FOR HYPOALB) 12.6 mg/dL (8.5-10.1); CREATININE 0.59 mg/dL (0.55-1.02); SODIUM 136 mmol/L (136-145); TOTAL PROTEIN 5.1 g/dL (6.4-8.2); eGFR NON BLACK RACES > 60 (>60)
[2018-05-07 06:55] LABS: BAND NEUTROPHILS % 5 % (0-10); METAMYELOCYTES % 3
[2018-05-07 06:57] LABS: PLATELET MORPHOLOGY COMMENT NORMAL (NORMAL)
[2018-05-07] MEDS: XOPENEX 1.25 MG/3 ML NEBULE NEB SCH ×4 (09:24→20:07)
[2018-05-07] MEDS: DIFLUCAN 200 MG IV PREMIX* 200 MG/100 ML BAG IV SCH (09:25)
[2018-05-07] MEDS: HYDROCHLOROTHIAZIDE 25 MG TAB PO SCH (09:25)
[2018-05-07] MEDS: ZYLOPRIM PO SCH (09:26)
[2018-05-07] MEDS: K-DUR TAB 20 MEQ PO SCH (09:26)
[2018-05-07] MEDS: ALDACTONE TAB 25 MG PO SCH (09:26)
[2018-05-07] MEDS: PERIACTIN TAB 4 MG PO SCH ×2 (09:27→20:40)
[2018-05-07] MEDS: MAGIC MOUTHWASH MT SCH ×4 (09:27→20:40)
[2018-05-07] MEDS: MILK OF MAGNESIA PO SCH (09:27)
[2018-05-07] MEDS: LEVAQUIN PREMIX IV 750 MG 750 MG/150 ML BAG IV SCH (09:28)
[2018-05-07] MEDS ORDERED: GLUTOSE 15 GEL ORAL PO ONE (16:36)
[2018-05-07] MEDS ORDERED: D50W ABBOJECT SYR IV ONE (16:37)
[2018-05-07] MEDS: TORADOL 15 MG VIAL IVP PRN ×2 (17:28→22:47)
[2018-05-07] MEDS ORDERED: LEXAPRO ONE (20:35)
[2018-05-07] MEDS: COLACE CAP 100 MG PO SCH (20:39)
[2018-05-07] MEDS: PREVACID PO SCH (20:40)
[2018-05-07] MEDS: NEURONTIN TAB 600 MG PO SCH (20:40)
[2018-05-07] MEDS: LEXAPRO PO SCH (20:40)
--- NOTE | 2018-05-07 23:50 | PCM.PROG ---
Progress Note Subjective Subjective: WAS ADMITTED FOR PNEUMONIA, COPD EXACERBATION, AND A URINARY TRACT INFECTION. SHE REMAINS IN THE INTENSIVE CARE UNIT. SHE IS WEAK AND APPEAR TO BE WORSE TODAYTODAY, CURRENTLY UTILIZING THE BIPAP. SHE IS WEAK AND EATING POORLY. URINE CULTURE GREW E COLI AND BLOOD CULTURE GREW STREP PNEUMONIA. LUNGS HAVE SCATTERED WHEEZING AND RHONCHI. ABDOMEN NOTED TO HAVE DIFFUSE TENDERNESS ON PALPATION. TRACE EDEMA TO HER LOWER EXTREMITIES. HER VITALS AFEBRIL THIS MORNING. SHE IS CURRENTLY RECEIVING RESPIRATORY TREATMENTS. WE WILL CONTINUE WITH CURRENT PLAN OF CARE. WILL CONTINUE WITH FORTAZ 1GM IV Q8H LEVAQUIN, AND AM LABS. WILL CONTINUE TO MONITOR PATIENT. Past Medical Family Social History Past Med/Fam/Surg Hx: No changes since H&P Allergies: Allergies aspirin Allergy (Verified 12/21/17 10:04) ibuprofen Allergy (Verified 12/21/17 10:04) Review of Systems ROS: No change since H&P Vital Signs and I&O's Vital Signs: Temperature 97.9 F Pulse Rate [Apical] 117 Pulse Rate 88 Respiratory Rate 35 Blood Pressure [Right Arm] 111/58 Blood Pressure [Left Arm] 105/58 Blood Pressure 94/50 O2 Sat by Pulse Oximetry 100 Intake and Output: Intake & Output 05/04/18 05/05/18 05/06/18 05/07/18 23:59 23:59 23:59 23:59 Intake Total 2570.75 / 2570.75 1566 / 1566 1406 / 1406 1421 / 1421 Output Total 1300 / 1300 1700 / 1700 700 / 700 850 / 850 Balance 1270.75 / 1270.75 -134 / -134 706 / 706 571 / 571 Physical Exam Oriented: Normal Eyes: Normal Ear: Normal Nose: Normal Throat: Normal Cardiovascular: Tachycardia; negative S3, S4 and Murmur : Normal Auscultation: Bowel Sounds: Normal Tenderness: Diffuse, Moderate and Other (DISTENTION ); negative Rebound, Guarding and Rigidity Skin: Normal Musculoskeletal: Normal Psychiatric: Normal Mood Description: Calm Affect: Normal Speech Pattern: Appropriate Laboratory and Diagnostics Result Diagrams: 05/07/18 04:52 05/07/18 04:52 Labs: 05/05/18 11:24 Sputum - Expectorated Sputum Sputum Culture - Preliminary 05/05/18 11:24 Sputum - Expectorated Sputum - Final 05/02/18 17:40 Blood Blood Culture - Final Streptococcus Pneumoniae 05/02/18 16:10 Blood Blood Culture - Preliminary 05/02/18 19:45 Urine,Catheterized Urine Culture - Final Escherichia Coli Laboratory WBC 8.9 X10^3/uL (3.6-10.0) 05/07/18 04:52 RBC 4.57 X10^6/uL (3.5-5.4) 05/07/18 04:52 Hgb 13.7 g/dL (12.0-16.0) 05/07/18 04:52 Hct 41.3 % (36.0-47.0) 05/07/18 04:52 MCV 90.4 fL (80.0-100.0) 05/07/18 04:52 MCH 30.0 pg (27.0-34.0) 05/07/18 04:52 MCHC 33.1 g/dL (33.0-35.0) 05/07/18 04:52 RDW 16.3 % (11.6-16.5) 05/07/18 04:52 Plt Count 52 X10^3/uL (150.0-450.0) L 05/07/18 04:52 Plt Count Comment Decreased (ADEQUATE) A 05/07/18 04:52 MPV 8.8 fL (7.4-11.0) 05/07/18 04:52 Neut % (Auto) 85.3 % (42.0-75.0) H 05/07/18 04:52 Lymph % (Auto) 7.4 % (21.0-51.0) L 05/07/18 04:52 [place] % (Auto) 6.8 % (0.0-13.0) 05/07/18 04:52 Eos % (Auto) 0.4 % (0.9-2.9) L 05/07/18 04:52 Baso % (Auto) 0.1 % (0.2-1.0) L 05/07/18 04:52 Neut # (Auto) 7.6 x10^3/uL (2.2-4.8) H 05/07/18 04:52 Lymph # (Auto) 0.7 X10^3/uL (1.3-2.9) L 05/07/18 04:52 [place] # (Auto) 0.6 x10^3/uL (0.3-0.8) 05/07/18 04:52 Eos # (Auto) 0.0 x10^3/uL (0.0-0.2) 05/07/18 04:52 Baso # (Auto) 0.0 X10^3/uL (0.0-0.1) 05/07/18 04:52 Absolute Nucleated RBC 0.4 /100WBC 05/07/18 04:52 Total Counted 100 05/07/18 04:52 Neutrophils % (Manual) 68 % (39-76) 05/07/18 04:52 Band Neutrophils % 5 % (0-10) 05/07/18 04:52 Lymphocytes % (Manual) 16 % (13-43) 05/07/18 04:52 Monocytes % (Manual) 8 % (4-9) 05/07/18 04:52 Eosinophils % (Manual) Cancelled 05/02/18 17:40 Basophils % (Manual) Cancelled 05/02/18 17:40 Metamyelocytes % 3 05/07/18 04:52 Myelocytes % Cancelled 05/02/18 17:40 Promyelocytes % Cancelled 05/02/18 17:40 Nucleated RBCs Cancelled 05/02/18 17:40 Atypical Lymphocytes Cancelled 05/02/18 17:40 Blast Cells Cancelled 05/02/18 17:40 Smudge Cells Cancelled 05/02/18 17:40 Toxic Granulation Cancelled 05/02/18 17:40 Dohle Bodies Cancelled 05/02/18 17:40 [place] Rods Cancelled 05/02/18 17:40 Plt Clumps, EDTA Cancelled 05/02/18 17:40 Giant Platelets Cancelled 05/02/18 17:40 Plt Morphology Comment Normal (NORMAL) 05/07/18 04:52 RBC Morphology Normal (NORMAL) 05/07/18 04:52 Dimorphic RBCs Cancelled 05/02/18 17:40 Polychromasia Cancelled 05/02/18 17:40 Hypochromasia Cancelled 05/02/18 17:40 Poikilocytosis Cancelled 05/02/18 17:40 Basophilic Stippling Cancelled 05/02/18 17:40 Anisocytosis Cancelled 05/02/18 17:40 Microcytosis Cancelled 05/02/18 17:40 Macrocytosis Cancelled 05/02/18 17:40 Spherocytes Cancelled 05/02/18 17:40 Pappenheimer Bodies Cancelled 05/02/18 17:40 Sickle Cells Cancelled 05/02/18 17:40 Target Cells Cancelled 05/02/18 17:40 Tear Drop Cells Cancelled 05/02/18 17:40 Ovalocytes Cancelled 05/02/18 17:40 Stomatocytes Cancelled 05/02/18 17:40 Helmet Cells Cancelled 05/02/18 17:40 Acevedo-[place] Bodies Cancelled 05/02/18 17:40 [place] Rings Cancelled 05/02/18 17:40 Elijah Cells Cancelled 05/02/18 17:40 Crenated Cell Cancelled 05/02/18 17:40 Acanthocytes (Spur) Cancelled 05/02/18 17:40 Rouleaux Cancelled 05/02/18 17:40 Schistocytes Cancelled 05/02/18 17:40 Smear Path Review See note 05/02/18 17:40 D-Dimer 2480 ng/mL (0-400) H* 05/02/18 19:50 Sample Site Lbr 05/02/18 17:49 ABG pH 7.390 (7.35-7.45) 05/02/18 17:49 ABG pCO2 39.0 mmHg (35.0-45.0) 05/02/18 17:49 ABG pO2 94.0 mmHg (80.0-100.0) 05/02/18 17:49 ABG HCO3 23.6 mmol/L (22-26) 05/02/18 17:49 ABG O2 Saturation 97.0 % (90-100) 05/02/18 17:49 ABG Base Excess -1.2 mmol/L (-2.0-2.0) 05/02/18 17:49 Aries Test N/a 05/02/18 17:49 A-a Gradient 570.0 mmHg 05/02/18 17:49 FiO2 100 05/02/18 17:49 Blood Gas Comments Pt anne marie well cdn 05/02/18 17:49 Sodium 136 mmol/L (136-145) 05/07/18 04:52 Corrected Sodium TNP 05/07/18 04:52 Potassium 4.9 mmol/L (3.5-5.1) 05/07/18 04:52 Chloride 105 mmol/L (98-107) 05/07/18 04:52 Carbon Dioxide 31.0 mmol/L (21-32) 05/07/18 04:52 BUN 16 mg/dL (7-18) 05/07/18 04:52 Creatinine 0.59 mg/dL (0.55-1.02) 05/07/18 04:52 Est GFR (MDRD) Af Amer > 60 (>60) 05/07/18 04:52 Est GFR (MDRD) Non-Af > 60 (>60) 05/07/18 04:52 Glucose 90 mg/dL (65-99) 05/07/18 04:52 POC Glucose (mg/dL) 127 mg/dL (65-99) H 05/07/18 20:07 Lactic Acid 2.6 mmol/L (0.4-2.0) H 05/04/18 06:10 Calcium 10.8 mg/dL (8.5-10.1) H 05/07/18 04:52 Corrected Calcium 12.6 mg/dL (8.5-10.1) H 05/07/18 04:52 Magnesium 2.4 mg/dL (1.7-2.9) 05/04/18 06:10 Total Bilirubin 2.00 mg/dL (0.2-1.0) H 05/07/18 04:52 AST 20 Units/L (15-37) 05/07/18 04:52 ALT 21 Units/L (12-78) 05/07/18 04:52 Alkaline Phosphatase 80 Units/L (46-116) 05/07/18 04:52 Creatine Kinase 21 Units/L (26-192) L 05/04/18 06:10 CK-MB (CK-2) < 1.0 ng/mL (0-4.0) 05/04/18 06:10 CK/CKMB % Calc 4.8 % (<4) 05/04/18 06:10 Troponin I 0.02 ng/mL (0-1.5) 05/04/18 06:10 B-Natriuretic Peptide 529 pg/mL (0-79) H* 05/02/18 19:50 Total Protein 5.1 g/dL (6.4-8.2) L 05/07/18 04:52 Albumin 1.7 g/dL (3.4-5.0) L 05/07/18 04:52 Globulin 3.4 g/dL (2.5-4.5) 05/07/18 04:52 Albumin/Globulin Ratio 0.5 Ratio (1.1-2.1) L 05/07/18 04:52 Specimen Type Catherized urine 05/02/18 19:45 Urine Color Ivana (YELLOW) 05/02/18 19:45 Urine Appearance Hazy (CLEAR) 05/02/18 19:45 Urine pH 6.0 (5.0 - 8.0) 05/02/18 19:45 Ur Specific [place] 1.020 (1.000-1.030) 05/02/18 19:45 Urine Protein 2+ (NEGATIVE) 05/02/18 19:45 Urine Glucose (UA) Negative (NEGATIVE) 05/02/18 19:45 Urine Ketones 1+ (NEGATIVE) 05/02/18 19:45 Urine Occult Blood 1+ (NEGATIVE) 05/02/18 19:45 Urine Nitrite Positive (NEGATIVE) 05/02/18 19:45 Urine Bilirubin 2+ (NEGATIVE) 05/02/18 19:45 Urine Urobilinogen 2+ (NORMAL) 05/02/18 19:45 Ur Leukocyte Esterase 1+ (NEGATIVE) 05/02/18 19:45 Urine RBC 3-5 /HPF (NONE SEEN) 05/02/18 19:45 Urine WBC 5-10 /HPF (NONE SEEN) 05/02/18 19:45 Ur Squamous Epith Cells Few /HPF (NEGATIVE) 05/02/18 19:45 Urine Bacteria 2+ /HPF (NEGATIVE) 05/02/18 19:45 Urine Mucus Few /HPF (NEGATIVE) 05/02/18 19:45 Ur Culture Indicated? Yes/culture set up 05/02/18 19:45 Plan (1) Multifocal pneumonia: Status: Acute Plan: LEVAQUIN 750MG IV DAILY, ROCEPHIN 1GM IV DAILY, RESPIRATORY TREATMENTS, SUPPLEMENTAL OXYGEN, CONTINUE TO MONITOR. HER CONDITION IS GETTING WORSE. (2) COPD (chronic obstructive pulmonary disease): Status: Acute Qualifiers: COPD type: COPD with acute exacerbation Chronic bronchitis type: Emphysema type: Qualified Code(s): J44.1 - Chronic obstructive pulmonary disease with (acute) exacerbation Plan: RESPIRATORY TREATMENTS, SUPPLEMENTAL OXYGEN, IV ANTIBIOTICS, DAMARIS NUE TO MONITOR (3) Abdominal pain: Status: Acute Qualifiers: Abdominal location: epigastric Qualified Code(s): R10.13 - Epigastric pain Plan: CONTINUE TO MONITOR (4) Hypokalemia: Status: Acute Plan: REPLACEMENT WITH PROTOCOL, CONTINUE TO MONITOR (5) Hepatitis: Status: Chronic Plan: CONTINUE HOME MEDS, CONTINUE TO MONITOR (6) Cirrhosis: Status: Chronic Qualifiers: Ascites presence: with ascites Hepatic cirrhosis type: unspecified hepatic cirrhosis Qualified Code(s): K74.60 - Unspecified cirrhosis of liver; R18.8 - Other ascites Plan: CONTINUE HOME MEDS, CONTINUE TO MONITOR
[2018-05-08 05:14] LABS: BASOPHILS % (AUTO) 0.2 % (0.2-1.0); EOSINOPHILS % (AUTO) 0.3 % (0.9-2.9); HEMATOCRIT 40.3 % (36.0-47.0); HEMOGLOBIN 13.3 g/dL (12.0-16.0); LYMPHOCYTES # (AUTO) 0.6 X10^3/uL (1.3-2.9); LYMPHOCYTES % (AUTO) 7.3 % (21.0-51.0); MEAN CORPUSCULAR HEMOGLOBIN 29.8 pg (27.0-34.0); MEAN CORPUSCULAR VOLUME 90.2 fL (80.0-100.0); MEAN PLATELET VOLUME 8.3 fL (7.4-11.0); MONOCYTES # (AUTO) 0.7 x10^3/uL (0.3-0.8); MONOCYTES % (AUTO) 8.3 % (0.0-13.0); NEUTROPHILS % (AUTO) 83.9 % (42.0-75.0); PLATELET COUNT 60 X10^3/uL (150.0-450.0); RED BLOOD COUNT 4.47 X10^6/uL (3.5-5.4); RED CELL DISTRIBUTION WIDTH 16.1 % (11.6-16.5); WHITE BLOOD COUNT 8.4 X10^3/uL (3.6-10.0)
[2018-05-08] MEDS: NS 1000 ML 1,000 ML IV SCH (05:20)
[2018-05-08] MEDS: FORTAZ or TAZICEF VIAL INJ IVP SCH ×3 (05:21→21:00)
[2018-05-08 05:24] LABS: ALANINE AMINOTRANSFERASE 20 Units/L (12-78); ALBUMIN 1.6 g/dL (3.4-5.0); ALKALINE PHOSPHATASE 71 Units/L (46-116); ASPARTATE AMINO TRANSFERASE 21 Units/L (15-37); BLOOD UREA NITROGEN 22 mg/dL (7-18); CALCIUM 11.1 mg/dL (8.5-10.1); CARBON DIOXIDE 29.6 mmol/L (21-32); CHLORIDE 106 mmol/L (98-107); CREATININE 0.59 mg/dL (0.55-1.02); SODIUM 138 mmol/L (136-145); TOTAL PROTEIN 4.9 g/dL (6.4-8.2); eGFR NON BLACK RACES > 60 (>60)
[2018-05-08 05:54] LABS: BAND NEUTROPHILS % 6 % (0-10); PLATELET MORPHOLOGY COMMENT NORMAL (NORMAL)
--- NOTE | 2018-05-08 07:19 | RAD ---
HISTORY: Weakness, shortness of breath Study: Chest AP portable Comparison: 05/06/2018, 05/05/2018 Findings: The patient is rotated to the right. The heart remains enlarged. No definite congestive heart failure is identified. The lungs are mildly hyperinflated. There is, however, some subsegmental atelectasis in the right lung base. The remainder of the lung stone are free of acute infiltrates. Mild interstitial lung changes are present. Bilateral small pleural effusions are likely present. IMPRESSION: Mild cardiomegaly without congestive heart failure Right basilar subsegmental atelectasis Mild hyperinflation with mild interstitial lung changes Small bilateral pleural effusions Reported By:
[2018-05-08] MEDS: VITAMIN D (1.25MG) PO SCH (09:12)
[2018-05-08] MEDS: LEVAQUIN PREMIX IV 750 MG 750 MG/150 ML BAG IV SCH (09:12)
[2018-05-08] MEDS: HYDROCHLOROTHIAZIDE 25 MG TAB PO SCH (09:12)
[2018-05-08] MEDS: K-DUR TAB 20 MEQ PO SCH (09:13)
[2018-05-08] MEDS: ZYLOPRIM PO SCH (09:13)
[2018-05-08] MEDS: ALDACTONE TAB 25 MG PO SCH (09:13)
[2018-05-08] MEDS: TORADOL 15 MG VIAL IVP PRN ×2 (09:13→21:08)
[2018-05-08] MEDS: PERIACTIN TAB 4 MG PO SCH ×2 (09:13→20:55)
[2018-05-08] MEDS: DIFLUCAN 200 MG IV PREMIX* 200 MG/100 ML BAG IV SCH (09:14)
[2018-05-08] MEDS: MAGIC MOUTHWASH MT SCH ×3 (09:14→20:56)
[2018-05-08] MEDS: MILK OF MAGNESIA PO SCH (09:21)
[2018-05-08] MEDS: XOPENEX 1.25 MG/3 ML NEBULE NEB SCH ×4 (09:25→20:34)
--- NOTE | 2018-05-08 10:28 | PCM.PROG ---
Progress Note - Progress Note for Day of Date of Exam: 04/03/18 - Subjective Subjective: WAS ADMITTED FOR PNEUMONIA, COPD EXACERBATION, AND A URINARY TRACT INFECTION. SHE REMAINS IN THE INTENSIVE CARE UNIT THIS MORNING. TODAY, SHE IS ALERT AND ORIENTED, LYING IN BED ON MORNING ROUNDS. SHE CONTINUES TO UTILIZE THE BIPAP AND CONTINUES ON A LEVOPHED DRIP. SHE CONTINUES WITH COMPLAINTS OF SHORTNESS OF BREATH, ABDOMINAL PAIN, AND MOUTH PAIN THIS MORNING. ON EXAMINATION, THERE ARE WHITE PATCHES NOTED TO ORAL CAVITY. HEART IS REGULAR IN RATE AND RHYTHM. BILATERAL LUNGS ARE NOTED WITH SCATTERED WHEEZING AND RHONCHI. ABDOMEN IS DISTENDED AND NOTED WITH DIFFUSE TENDERNESS TO PALPATION. SHE IS NOTED WITH TRACE EDEMA TO HER LOWER EXTREMITIES. HER VITALS THIS MORNING ARE 98.0-99-31-100%-94/59. LABS WERE OBTAINED. ABNORMAL LAB VALUES INCLUDE THE FOLLOWING: WBC 1.8, PLT COUNT 78, SODIUM 135, LACTIC ACID 2.6, TOTAL BILI 4.90, CREATINE KINASE 21, TOTAL PROTEIN 5.6, ALBUMIN 2.1. URINE CULTURE AND BLOOD CULTURES ARE PENDING. SHE IS CURRENTLY RECEIVING LEVAQUIN AND FORTAZ IV WELL RESPIRATORY TREATMENTS AND LEVOPHED. AN ECHO WAS OBTAINED YESTERDAY AND REVEALED AN EJECTION FRACTION OF 67%. AN ABDOMEN/PELVIS CT WITHOUT CONTRAST REVEALED: Limited noncontrast study, without evidence for acute intra-abdominal abnormality. Cirrhosis with large perisplenic varices. Small volume pelvic ascites. Bibasilar pneumonia. TODAY, WE WILL ADMINISTER A NEUPOGEN INJECTION AND START DIFLUCAN 200MG IV DAILY AND MAGIC MOUTHWASH QID. OTHERWISE, WE WILL FOLLOW UP WITH AM LABS AND CONTINUE TO MONITOR PATIENT. - Past Medical Family Social History Past Med/Fam/Surg Hx: No changes since H&P Allergies: Allergies aspirin Allergy (Verified 12/21/17 10:04) ibuprofen Allergy (Verified 12/21/17 10:04) - Review of Systems ROS: No change since H&P - Vital Signs and I&O's Vital Signs: Temperature 97.9 F Pulse Rate [Apical] 117 Pulse Rate 90 Respiratory Rate 27 Blood Pressure [Right Arm] 111/58 Blood Pressure [Left Arm] 105/58 Blood Pressure 97/57 O2 Sat by Pulse Oximetry 95 Intake and Output: Intake & Output 11/09/18 11/10/18 11/11/18 11/12/18 11:59 11:59 11:59 11:59 Intake Total 2261 / 2261 1653 / 1653 1352 / 1352 1396 / 1396 Output Total 1375 / 1375 1575 / 1575 550 / 550 1100 / 1100 Balance 886 / 886 78 / 78 802 / 802 296 / 296 - Physical Exam Oriented: Normal Eyes: Normal Ear: Normal Nose: Normal Throat: Normal Respiratory: Generalized, Wheezes, Rhonchi Cardiovascular: Normal. negative: S3, S4, Murmur : Normal Auscultation: Bowel Sounds: Normal Palpation: Normal Tenderness: Diffuse, Moderate, Other (DISTENTION). negative: Rebound, Guarding, Rigidity Skin: Normal Musculoskeletal: Normal Psychiatric: Normal Mood Description: Calm Affect: Normal Speech Pattern: Appropriate - Laboratory and Diagnostics Result Diagrams: 05/08/18 04:43 05/08/18 04:43 Labs: 05/05/18 11:24 Sputum - Expectorated Sputum Sputum Culture - Final Escherichia Coli 05/05/18 11:24 Sputum - Expectorated Sputum - Final 05/02/18 17:40 Blood Blood Culture - Final Streptococcus Pneumoniae 05/02/18 16:10 Blood Blood Culture - Preliminary 05/02/18 19:45 Urine,Catheterized Urine Culture - Final Escherichia Coli Laboratory WBC 8.4 X10^3/uL (3.6-10.0) 05/08/18 04:43 RBC 4.47 X10^6/uL (3.5-5.4) 05/08/18 04:43 Hgb 13.3 g/dL (12.0-16.0) 05/08/18 04:43 Hct 40.3 % (36.0-47.0) 05/08/18 04:43 MCV 90.2 fL (80.0-100.0) 05/08/18 04:43 MCH 29.8 pg (27.0-34.0) 05/08/18 04:43 MCHC 33.0 g/dL (33.0-35.0) 05/08/18 04:43 RDW 16.1 % (11.6-16.5) 05/08/18 04:43 Plt Count 60 X10^3/uL (150.0-450.0) L 05/08/18 04:43 Plt Count Comment Decreased (ADEQUATE) A 05/08/18 04:43 MPV 8.3 fL (7.4-11.0) 05/08/18 04:43 Neut % (Auto) 83.9 % (42.0-75.0) H 05/08/18 04:43 Lymph % (Auto) 7.3 % (21.0-51.0) L 05/08/18 04:43 [place] % (Auto) 8.3 % (0.0-13.0) 05/08/18 04:43 Eos % (Auto) 0.3 % (0.9-2.9) L 05/08/18 04:43 Baso % (Auto) 0.2 % (0.2-1.0) 05/08/18 04:43 Neut # (Auto) 7.0 x10^3/uL (2.2-4.8) H 05/08/18 04:43 Lymph # (Auto) 0.6 X10^3/uL (1.3-2.9) L 05/08/18 04:43 [place] # (Auto) 0.7 x10^3/uL (0.3-0.8) 05/08/18 04:43 Eos # (Auto) 0.0 x10^3/uL (0.0-0.2) 05/08/18 04:43 Baso # (Auto) 0.0 X10^3/uL (0.0-0.1) 05/08/18 04:43 Absolute Nucleated RBC 0.0 /100WBC 05/08/18 04:43 Total Counted 100 05/08/18 04:43 Neutrophils % (Manual) 73 % (39-76) 05/08/18 04:43 Band Neutrophils % 6 % (0-10) 05/08/18 04:43 Lymphocytes % (Manual) 12 % (13-43) L 05/08/18 04:43 Monocytes % (Manual) 9 % (4-9) 05/08/18 04:43 Eosinophils % (Manual) Cancelled 05/02/18 17:40 Basophils % (Manual) Cancelled 05/02/18 17:40 Metamyelocytes % 3 05/07/18 04:52 Myelocytes % Cancelled 05/02/18 17:40 Promyelocytes % Cancelled 05/02/18 17:40 Nucleated RBCs Cancelled 05/02/18 17:40 Atypical Lymphocytes Cancelled 05/02/18 17:40 Blast Cells Cancelled 05/02/18 17:40 Smudge Cells Cancelled 05/02/18 17:40 Toxic Granulation Cancelled 05/02/18 17:40 Dohle Bodies Cancelled 05/02/18 17:40 Deepak Rods Cancelled 05/02/18 17:40 Plt Clumps, EDTA Cancelled 05/02/18 17:40 Giant Platelets Cancelled 05/02/18 17:40 Plt Morphology Comment Normal (NORMAL) 05/08/18 04:43 RBC Morphology Normal (NORMAL) 05/08/18 04:43 Dimorphic RBCs Cancelled 05/02/18 17:40 Polychromasia Cancelled 05/02/18 17:40 Hypochromasia Cancelled 05/02/18 17:40 Poikilocytosis Cancelled 05/02/18 17:40 Basophilic Stippling Cancelled 05/02/18 17:40 Anisocytosis Cancelled 05/02/18 17:40 Microcytosis Cancelled 05/02/18 17:40 Macrocytosis Cancelled 05/02/18 17:40 Spherocytes Cancelled 05/02/18 17:40 Pappenheimer Bodies Cancelled 05/02/18 17:40 Sickle Cells Cancelled 05/02/18 17:40 Target Cells Cancelled 05/02/18 17:40 Tear Drop Cells Cancelled 05/02/18 17:40 Ovalocytes Cancelled 05/02/18 17:40 Stomatocytes Cancelled 05/02/18 17:40 Helmet Cells Cancelled 05/02/18 17:40 [place] Bodies Cancelled 05/02/18 17:40 [place] Rings Cancelled 05/02/18 17:40 [place] Cells Cancelled 05/02/18 17:40 Crenated Cell Cancelled 05/02/18 17:40 Acanthocytes (Spur) Cancelled 05/02/18 17:40 Rouleaux Cancelled 05/02/18 17:40 Schistocytes Cancelled 05/02/18 17:40 Smear Path Review See note 05/02/18 17:40 D-Dimer 2480 ng/mL (0-400) H* 05/02/18 19:50 Sample Site Lbr 05/02/18 17:49 ABG pH 7.390 (7.35-7.45) 05/02/18 17:49 ABG pCO2 39.0 mmHg (35.0-45.0) 05/02/18 17:49 ABG pO2 94.0 mmHg (80.0-100.0) 05/02/18 17:49 ABG HCO3 23.6 mmol/L (22-26) 05/02/18 17:49 ABG O2 Saturation 97.0 % (90-100) 05/02/18 17:49 ABG Base Excess -1.2 mmol/L (-2.0-2.0) 05/02/18 17:49 Aries Test N/a 05/02/18 17:49 A-a Gradient 570.0 mmHg 05/02/18 17:49 FiO2 100 05/02/18 17:49 Blood Gas Comments Pt anne marie well cdn 05/02/18 17:49 Sodium 138 mmol/L (136-145) 05/08/18 04:43 Corrected Sodium TNP 05/08/18 04:43 Potassium 5.0 mmol/L (3.5-5.1) 05/08/18 04:43 Chloride 106 mmol/L (98-107) 05/08/18 04:43 Carbon Dioxide 29.6 mmol/L (21-32) 05/08/18 04:43 BUN 22 mg/dL (7-18) H 05/08/18 04:43 Creatinine 0.59 mg/dL (0.55-1.02) 05/08/18 04:43 Est GFR (MDRD) Af Amer > 60 (>60) 05/08/18 04:43 Est GFR (MDRD) Non-Af > 60 (>60) 05/08/18 04:43 Glucose 78 mg/dL (65-99) 05/08/18 04:43 POC Glucose (mg/dL) 66 mg/dL (65-99) 05/08/18 08:50 Lactic Acid 2.6 mmol/L (0.4-2.0) H 05/04/18 06:10 Calcium 11.1 mg/dL (8.5-10.1) H 05/08/18 04:43 Corrected Calcium 13.0 mg/dL (8.5-10.1) H 05/08/18 04:43 Magnesium 2.4 mg/dL (1.7-2.9) 05/04/18 06:10 Total Bilirubin 2.40 mg/dL (0.2-1.0) H 05/08/18 04:43 AST 21 Units/L (15-37) 05/08/18 04:43 ALT 20 Units/L (12-78) 05/08/18 04:43 Alkaline Phosphatase 71 Units/L (46-116) 05/08/18 04:43 Creatine Kinase 21 Units/L (26-192) L 05/04/18 06:10 CK-MB (CK-2) < 1.0 ng/mL (0-4.0) 05/04/18 06:10 CK/CKMB % Calc 4.8 % (<4) 05/04/18 06:10 Troponin I 0.02 ng/mL (0-1.5) 05/04/18 06:10 B-Natriuretic Peptide 529 pg/mL (0-79) H* 05/02/18 19:50 Total Protein 4.9 g/dL (6.4-8.2) L 05/08/18 04:43 Albumin 1.6 g/dL (3.4-5.0) L 05/08/18 04:43 Globulin 3.3 g/dL (2.5-4.5) 05/08/18 04:43 Albumin/Globulin Ratio 0.5 Ratio (1.1-2.1) L 05/08/18 04:43 Specimen Type Catherized urine 05/02/18 19:45 Urine Color Ivana (YELLOW) 05/02/18 19:45 Urine Appearance Hazy (CLEAR) 05/02/18 19:45 Urine pH 6.0 (5.0 - 8.0) 05/02/18 19:45 Ur Specific [place] 1.020 (1.000-1.030) 05/02/18 19:45 Urine Protein 2+ (NEGATIVE) 05/02/18 19:45 Urine Glucose (UA) Negative (NEGATIVE) 05/02/18 19:45 Urine Ketones 1+ (NEGATIVE) 05/02/18 19:45 Urine Occult Blood 1+ (NEGATIVE) 05/02/18 19:45 Urine Nitrite Positive (NEGATIVE) 05/02/18 19:45 Urine Bilirubin 2+ (NEGATIVE) 05/02/18 19:45 Urine Urobilinogen 2+ (NORMAL) 05/02/18 19:45 Ur Leukocyte Esterase 1+ (NEGATIVE) 05/02/18 19:45 Urine RBC 3-5 /HPF (NONE SEEN) 05/02/18 19:45 Urine WBC 5-10 /HPF (NONE SEEN) 05/02/18 19:45 Ur Squamous Epith Cells Few /HPF (NEGATIVE) 05/02/18 19:45 Urine Bacteria 2+ /HPF (NEGATIVE) 05/02/18 19:45 Urine Mucus Few /HPF (NEGATIVE) 05/02/18 19:45 Ur Culture Indicated? Yes/culture set up 05/02/18 19:45 - Plan (1) Multifocal pneumonia Status: Acute Plan: LEVAQUIN 750MG IV DAILY, ROCEPHIN 1GM IV DAILY, RESPIRATORY TREATMENTS, SUPPLEMENTAL OXYGEN, CONTINUE TO MONITOR. HER CONDITION IS GETTING WORSE. (2) COPD (chronic obstructive pulmonary disease) Status: Acute Qualifiers: COPD type: COPD with acute exacerbation Qualified Code(s): J44.1 - Chronic obstructive pulmonary disease with (acute) exacerbation Plan: RESPIRATORY TREATMENTS, SUPPLEMENTAL OXYGEN, IV ANTIBIOTICS, CONTINUE TO MONITOR (3) Abdominal pain Status: Acute Qualifiers: Abdominal location: epigastric Qualified Code(s): R10.13 - Epigastric pain Plan: CONTINUE TO MONITOR (4) Oral candidiasis Status: Acute Plan: MAGIC MOUTHWASH QID, DIFLUCAN 200MG IV DAILY, CONTINUE TO MONITOR (5) Hypokalemia Status: Resolved Plan: REPLACEMENT WITH PROTOCOL, CONTINUE TO MONITOR (6) Cirrhosis Status: Chronic Qualifiers: Hepatic cirrhosis type: unspecified hepatic cirrhosis Ascites presence: with ascites Qualified Code(s): K74.60 - Unspecified cirrhosis of liver; R18.8 - Other ascites Plan: CONTINUE HOME MEDS, CONTINUE TO MONITOR (7) Hepatitis Status: Chronic Plan: CONTINUE HOME MEDS, CONTINUE TO MONITOR
[2018-05-08] MEDS: ALBUMIN HUMAN 25%- 100 ML 100 ML IV SCH (11:33)
[2018-05-08] MEDS: D5 NS 1000 ML 1,000 ML IV SCH (11:33)
--- NOTE | 2018-05-08 19:25 | PCM.PROG ---
Progress Note - Progress Note for Day of Date of Exam: 05/05/18 - Subjective Subjective: WAS ADMITTED FOR PNEUMONIA, COPD EXACERBATION, AND A URINARY TRACT INFECTION. SHE REMAINS IN THE INTENSIVE CARE UNIT THIS MORNING. TODAY, SHE IS ALERT AND ORIENTED, LYING IN BED ON MORNING ROUNDS. SHE CONTINUES TO UTILIZE THE BIPAP AND CONTINUES ON A LEVOPHED DRIP. SHE CONTINUES WITH COMPLAINTS OF SHORTNESS OF BREATH, ABDOMINAL PAIN, AND MOUTH PAIN THIS MORNING. ON EXAMINATION, THERE ARE WHITE PATCHES NOTED TO ORAL CAVITY. HEART IS REGULAR IN RATE AND RHYTHM. BILATERAL LUNGS ARE NOTED WITH SCATTERED WHEEZING AND RHONCHI. ABDOMEN IS DISTENDED AND NOTED WITH DIFFUSE TENDERNESS TO PALPATION. SHE IS NOTED WITH TRACE EDEMA TO HER LOWER EXTREMITIES. HER VITALS THIS MORNING ARE 98.4-106-24-95%-102/65. LABS WERE OBTAINED. ABNORMAL LAB VALUES INCLUDE THE FOLLOWING: PLT COUNT 68, CREATININE 0.47, GLUCOSE 63, CALCIUM 10.7, CORRECTED CALCIUM 12.3, TOTAL BILI 4.50, TOTAL PROTEIN 5.6, ALUBMIN 2.0. URINE CULTURE REPORTS GROWTH OF E.COLI. BLOOD CULTURES AND A SPUTUM CULTURE ARE PENDING. SHE IS CURRENTLY RECEIVING LEVAQUIN AND FORTAZ IV WELL RESPIRATORY TREATMENTS AND LEVOPHED. TODAY, WE WILL DISCONTINUE THE LEVOPHED AND CONTINUE WITH CURRENT PLAN OF CARE. OTHERWISE, WE WILL FOLLOW UP WITH AM LABS AND CONTINUE TO MONITOR PATIENT. - Past Medical Family Social History Past Med/Fam/Surg Hx: No changes since H&P Allergies: Allergies aspirin Allergy (Verified 12/21/17 10:04) ibuprofen Allergy (Verified 12/21/17 10:04) - Review of Systems ROS: No change since H&P - Vital Signs and I&O's Vital Signs: Temperature 98.9 F Pulse Rate [Apical] 117 Pulse Rate 100 Respiratory Rate 55 Blood Pressure [Right Arm] 111/58 Blood Pressure [Left Arm] 105/58 Blood Pressure 98/51 O2 Sat by Pulse Oximetry 96 Intake and Output: Intake & Output 05/06/18 05/07/18 05/08/18 05/09/18 11:59 11:59 11:59 11:59 Intake Total 1653 / 1653 1352 / 1352 1396 / 1396 750 / 750 Output Total 1575 / 1575 550 / 550 1100 / 1100 700 / 700 Balance 78 / 78 802 / 802 296 / 296 50 / 50 - Physical Exam Oriented: Normal Eyes: Normal Ear: Normal Nose: Normal Throat: Normal Respiratory: Generalized, Wheezes, Rhonchi Cardiovascular: Normal. negative: S3, S4, Murmur : Normal Auscultation: Bowel Sounds: Normal Palpation: Normal Tenderness: Diffuse, Moderate, Other (DISTENTION). negative: Rebound, Guarding, Rigidity Skin: Normal Musculoskeletal: Normal Psychiatric: Normal Mood Description: Calm Affect: Normal Speech Pattern: Appropriate - Laboratory and Diagnostics Result Diagrams: 05/08/18 04:43 05/08/18 04:43 Labs: 05/02/18 16:10 Blood Blood Culture - Final 05/05/18 11:24 Sputum - Expectorated Sputum Sputum Culture - Final Escherichia Coli 05/05/18 11:24 Sputum - Expectorated Sputum - Final 05/02/18 17:40 Blood Blood Culture - Final Streptococcus Pneumoniae 05/02/18 19:45 Urine,Catheterized Urine Culture - Final Escherichia Coli Laboratory WBC 8.4 X10^3/uL (3.6-10.0) 05/08/18 04:43 RBC 4.47 X10^6/uL (3.5-5.4) 05/08/18 04:43 Hgb 13.3 g/dL (12.0-16.0) 05/08/18 04:43 Hct 40.3 % (36.0-47.0) 05/08/18 04:43 MCV 90.2 fL (80.0-100.0) 05/08/18 04:43 MCH 29.8 pg (27.0-34.0) 05/08/18 04:43 MCHC 33.0 g/dL (33.0-35.0) 05/08/18 04:43 RDW 16.1 % (11.6-16.5) 05/08/18 04:43 Plt Count 60 X10^3/uL (150.0-450.0) L 05/08/18 04:43 Plt Count Comment Decreased (ADEQUATE) A 05/08/18 04:43 MPV 8.3 fL (7.4-11.0) 05/08/18 04:43 Neut % (Auto) 83.9 % (42.0-75.0) H 05/08/18 04:43 Lymph % (Auto) 7.3 % (21.0-51.0) L 05/08/18 04:43 [place] % (Auto) 8.3 % (0.0-13.0) 05/08/18 04:43 Eos % (Auto) 0.3 % (0.9-2.9) L 05/08/18 04:43 Baso % (Auto) 0.2 % (0.2-1.0) 05/08/18 04:43 Neut # (Auto) 7.0 x10^3/uL (2.2-4.8) H 05/08/18 04:43 Lymph # (Auto) 0.6 X10^3/uL (1.3-2.9) L 05/08/18 04:43 [place] # (Auto) 0.7 x10^3/uL (0.3-0.8) 05/08/18 04:43 Eos # (Auto) 0.0 x10^3/uL (0.0-0.2) 05/08/18 04:43 Baso # (Auto) 0.0 X10^3/uL (0.0-0.1) 05/08/18 04:43 Absolute Nucleated RBC 0.0 /100WBC 05/08/18 04:43 Total Counted 100 05/08/18 04:43 Neutrophils % (Manual) 73 % (39-76) 05/08/18 04:43 Band Neutrophils % 6 % (0-10) 05/08/18 04:43 Lymphocytes % (Manual) 12 % (13-43) L 05/08/18 04:43 Monocytes % (Manual) 9 % (4-9) 05/08/18 04:43 Eosinophils % (Manual) Cancelled 05/02/18 17:40 Basophils % (Manual) Cancelled 05/02/18 17:40 Metamyelocytes % 3 05/07/18 04:52 Myelocytes % Cancelled 05/02/18 17:40 Promyelocytes % Cancelled 05/02/18 17:40 Nucleated RBCs Cancelled 05/02/18 17:40 Atypical Lymphocytes Cancelled 05/02/18 17:40 Blast Cells Cancelled 05/02/18 17:40 Smudge Cells Cancelled 05/02/18 17:40 Toxic Granulation Cancelled 05/02/18 17:40 Dohle Bodies Cancelled 05/02/18 17:40 Deepak Rods Cancelled 05/02/18 17:40 Plt Clumps, EDTA Cancelled 05/02/18 17:40 Giant Platelets Cancelled 05/02/18 17:40 Plt Morphology Comment Normal (NORMAL) 05/08/18 04:43 RBC Morphology Normal (NORMAL) 05/08/18 04:43 Dimorphic RBCs Cancelled 05/02/18 17:40 Polychromasia Cancelled 05/02/18 17:40 Hypochromasia Cancelled 05/02/18 17:40 Poikilocytosis Cancelled 05/02/18 17:40 Basophilic Stippling Cancelled 05/02/18 17:40 Anisocytosis Cancelled 05/02/18 17:40 Microcytosis Cancelled 05/02/18 17:40 Macrocytosis Cancelled 05/02/18 17:40 Spherocytes Cancelled 05/02/18 17:40 Pappenheimer Bodies Cancelled 05/02/18 17:40 Sickle Cells Cancelled 05/02/18 17:40 Target Cells Cancelled 05/02/18 17:40 Tear Drop Cells Cancelled 05/02/18 17:40 Ovalocytes Cancelled 05/02/18 17:40 Stomatocytes Cancelled 05/02/18 17:40 Helmet Cells Cancelled 05/02/18 17:40 Acevedo[place] Bodies Cancelled 05/02/18 17:40 [place] Rings Cancelled 05/02/18 17:40 [place] Cells Cancelled 05/02/18 17:40 Crenated Cell Cancelled 05/02/18 17:40 Acanthocytes (Spur) Cancelled 05/02/18 17:40 Rouleaux Cancelled 05/02/18 17:40 Schistocytes Cancelled 05/02/18 17:40 Smear Path Review See note 05/02/18 17:40 D-Dimer 2480 ng/mL (0-400) H* 05/02/18 19:50 Sample Site Lbr 05/02/18 17:49 ABG pH 7.390 (7.35-7.45) 05/02/18 17:49 ABG pCO2 39.0 mmHg (35.0-45.0) 05/02/18 17:49 ABG pO2 94.0 mmHg (80.0-100.0) 05/02/18 17:49 ABG HCO3 23.6 mmol/L (22-26) 05/02/18 17:49 ABG O2 Saturation 97.0 % (90-100) 05/02/18 17:49 ABG Base Excess -1.2 mmol/L (-2.0-2.0) 05/02/18 17:49 Aries Test N/a 05/02/18 17:49 A-a Gradient 570.0 mmHg 05/02/18 17:49 FiO2 100 05/02/18 17:49 Blood Gas Comments Pt anne marie well cdn 05/02/18 17:49 Sodium 138 mmol/L (136-145) 05/08/18 04:43 Corrected Sodium TNP 05/08/18 04:43 Potassium 5.0 mmol/L (3.5-5.1) 05/08/18 04:43 Chloride 106 mmol/L (98-107) 05/08/18 04:43 Carbon Dioxide 29.6 mmol/L (21-32) 05/08/18 04:43 BUN 22 mg/dL (7-18) H 05/08/18 04:43 Creatinine 0.59 mg/dL (0.55-1.02) 05/08/18 04:43 Est GFR (MDRD) Af Amer > 60 (>60) 05/08/18 04:43 Est GFR (MDRD) Non-Af > 60 (>60) 05/08/18 04:43 Glucose 78 mg/dL (65-99) 05/08/18 04:43 POC Glucose (mg/dL) 89 mg/dL (65-99) 05/08/18 17:04 Lactic Acid 2.6 mmol/L (0.4-2.0) H 05/04/18 06:10 Calcium 11.1 mg/dL (8.5-10.1) H 05/08/18 04:43 Corrected Calcium 13.0 mg/dL (8.5-10.1) H 05/08/18 04:43 Magnesium 2.4 mg/dL (1.7-2.9) 05/04/18 06:10 Total Bilirubin 2.40 mg/dL (0.2-1.0) H 05/08/18 04:43 AST 21 Units/L (15-37) 05/08/18 04:43 ALT 20 Units/L (12-78) 05/08/18 04:43 Alkaline Phosphatase 71 Units/L (46-116) 05/08/18 04:43 Creatine Kinase 21 Units/L (26-192) L 05/04/18 06:10 CK-MB (CK-2) < 1.0 ng/mL (0-4.0) 05/04/18 06:10 CK/CKMB % Calc 4.8 % (<4) 05/04/18 06:10 Troponin I 0.02 ng/mL (0-1.5) 05/04/18 06:10 B-Natriuretic Peptide 529 pg/mL (0-79) H* 05/02/18 19:50 Total Protein 4.9 g/dL (6.4-8.2) L 05/08/18 04:43 Albumin 1.6 g/dL (3.4-5.0) L 05/08/18 04:43 Globulin 3.3 g/dL (2.5-4.5) 05/08/18 04:43 Albumin/Globulin Ratio 0.5 Ratio (1.1-2.1) L 05/08/18 04:43 Specimen Type Catherized urine 05/02/18 19:45 Urine Color Ivana (YELLOW) 05/02/18 19:45 Urine Appearance Hazy (CLEAR) 05/02/18 19:45 Urine pH 6.0 (5.0 - 8.0) 05/02/18 19:45 Ur Specific [place] 1.020 (1.000-1.030) 05/02/18 19:45 Urine Protein 2+ (NEGATIVE) 05/02/18 19:45 Urine Glucose (UA) Negative (NEGATIVE) 05/02/18 19:45 Urine Ketones 1+ (NEGATIVE) 05/02/18 19:45 Urine Occult Blood 1+ (NEGATIVE) 05/02/18 19:45 Urine Nitrite Positive (NEGATIVE) 05/02/18 19:45 Urine Bilirubin 2+ (NEGATIVE) 05/02/18 19:45 Urine Urobilinogen 2+ (NORMAL) 05/02/18 19:45 Ur Leukocyte Esterase 1+ (NEGATIVE) 05/02/18 19:45 Urine RBC 3-5 /HPF (NONE SEEN) 05/02/18 19:45 Urine WBC 5-10 /HPF (NONE SEEN) 05/02/18 19:45 Ur Squamous Epith Cells Few /HPF (NEGATIVE) 05/02/18 19:45 Urine Bacteria 2+ /HPF (NEGATIVE) 05/02/18 19:45 Urine Mucus Few /HPF (NEGATIVE) 05/02/18 19:45 Ur Culture Indicated? Yes/culture set up 05/02/18 19:45 Urine Total Volume Cancelled 05/08/18 10:20 Urine Total Protein Cancelled 05/08/18 10:20 Urine Albumin (PEP) Cancelled 05/08/18 10:20 U [id number] Cancelled 05/08/18 10:20 U [id number] Cancelled 05/08/18 10:20 U Beta Globulin Cancelled 05/08/18 10:20 U Gamma Globulin Cancelled 05/08/18 10:20 U Free [place] Light Ch Cancelled 05/08/18 10:20 U Free [place] Excretion Cancelled 05/08/18 10:20 U Free [place] Light Ch Cancelled 05/08/18 10:20 Free Lambda Excret 24 Cancelled 05/08/18 10:20 U Free [place]/Lambda 24 Cancelled 05/08/18 10:20 CARLOS & SPEP Interp Cancelled 05/08/18 10:20 - Plan (1) Multifocal pneumonia Status: Acute Plan: LEVAQUIN 750MG IV DAILY, ROCEPHIN 1GM IV DAILY, RESPIRATORY TREATMENTS, SUPPLEMENTAL OXYGEN, CONTINUE TO MONITOR. HER CONDITION IS GETTING WORSE. (2) COPD (chronic obstructive pulmonary disease) Status: Acute Qualifiers: COPD type: COPD with acute exacerbation Qualified Code(s): J44.1 - Chronic obstructive pulmonary disease with (acute) exacerbation Plan: RESPIRATORY TREATMENTS, SUPPLEMENTAL OXYGEN, IV ANTIBIOTICS, CONTINUE TO MONITOR (3) Abdominal pain Status: Acute Qualifiers: Abdominal location: epigastric Qualified Code(s): R10.13 - Epigastric pain Plan: CONTINUE TO MONITOR (4) E coli infection Status: Acute Plan: CONTINUE IV ANTIBIOTICS, CONTINUE TO MONITOR (5) Oral candidiasis Status: Acute Plan: MAGIC MOUTHWASH QID, DIFLUCAN 200MG IV DAILY, CONTINUE TO MONITOR (6) Cirrhosis Status: Chronic Qualifiers: Hepatic cirrhosis type: unspecified hepatic cirrhosis Ascites presence: with ascites Qualified Code(s): K74.60 - Unspecified cirrhosis of liver; R18.8 - Other ascites Plan: CONTINUE HOME MEDS, CONTINUE TO MONITOR (7) Hepatitis Status: Chronic Plan: CONTINUE HOME MEDS, CONTINUE TO MONITOR
[2018-05-08] MEDS ORDERED: LEXAPRO ONE (20:35)
[2018-05-08] MEDS: PREVACID PO SCH (20:56)
[2018-05-08] MEDS: LEXAPRO PO SCH (20:56)
[2018-05-08] MEDS: COLACE CAP 100 MG PO SCH (20:56)
[2018-05-08] MEDS: NEURONTIN TAB 600 MG PO SCH (20:58)
[2018-05-09] MEDS: FORTAZ or TAZICEF VIAL INJ IVP SCH ×3 (05:32→21:00)
[2018-05-09 06:37] LABS: BASOPHILS % (AUTO) 0.2 % (0.2-1.0); EOSINOPHILS % (AUTO) 0.5 % (0.9-2.9); HEMATOCRIT 35.5 % (36.0-47.0); HEMOGLOBIN 11.8 g/dL (12.0-16.0); LYMPHOCYTES # (AUTO) 0.5 X10^3/uL (1.3-2.9); LYMPHOCYTES % (AUTO) 8.1 % (21.0-51.0); MEAN CORPUSCULAR HEMOGLOBIN 30.2 pg (27.0-34.0); MEAN CORPUSCULAR HGB CONC 33.1 g/dL (33.0-35.0); MEAN CORPUSCULAR VOLUME 91.1 fL (80.0-100.0); MEAN PLATELET VOLUME 8.7 fL (7.4-11.0); MONOCYTES # (AUTO) 0.6 x10^3/uL (0.3-0.8); MONOCYTES % (AUTO) 10.5 % (0.0-13.0); NEUTROPHILS # (AUTO) 4.6 x10^3/uL (2.2-4.8); NEUTROPHILS % (AUTO) 80.7 % (42.0-75.0); PLATELET COUNT 64 X10^3/uL (150.0-450.0); RED CELL DISTRIBUTION WIDTH 16.1 % (11.6-16.5); WHITE BLOOD COUNT 5.6 X10^3/uL (3.6-10.0)
[2018-05-09 07:03] LABS: ALANINE AMINOTRANSFERASE 18 Units/L (12-78); ALBUMIN 2.2 g/dL (3.4-5.0); ALKALINE PHOSPHATASE 62 Units/L (46-116); ASPARTATE AMINO TRANSFERASE 23 Units/L (15-37); BLOOD UREA NITROGEN 18 mg/dL (7-18); CALCIUM 11.5 mg/dL (8.5-10.1); CHLORIDE 110 mmol/L (98-107); COR CA(FOR HYPOALB) 12.9 mg/dL (8.5-10.1); SODIUM 142 mmol/L (136-145); eGFR NON BLACK RACES > 60 (>60)
[2018-05-09 07:38] LABS: BAND NEUTROPHILS % 14 % (0-10); PLATELET MORPHOLOGY COMMENT NORMAL (NORMAL)
--- NOTE | 2018-05-09 07:54 | RAD ---
History: Shortness of breath Study: AP chest Comparison: Yesterday Findings: There is persistent bibasilar subsegmental atelectasis primarily at the right lung base. There is limited inspiration overall. There is minimal vascular congestion. The costophrenic angles are blunted. The heart size is mildly enlarged, partially related to the limited inspiration. Impression: Bibasilar subsegmental atelectasis primarily at the right lung base Limited inspiration and mild vascular congestion and tiny pleural effusions Reported By:
[2018-05-09] MEDS: XOPENEX 1.25 MG/3 ML NEBULE NEB SCH ×4 (08:33→20:51)
[2018-05-09] MEDS: LEVAQUIN PREMIX IV 750 MG 750 MG/150 ML BAG IV SCH (08:57)
[2018-05-09] MEDS: ZYLOPRIM PO SCH (09:00)
[2018-05-09] MEDS: HYDROCHLOROTHIAZIDE 25 MG TAB PO SCH (09:01)
[2018-05-09] MEDS: ALDACTONE TAB 25 MG PO SCH (09:01)
[2018-05-09] MEDS: PERIACTIN TAB 4 MG PO SCH ×2 (09:01→20:13)
[2018-05-09] MEDS: K-DUR TAB 20 MEQ PO SCH (09:01)
[2018-05-09] MEDS: ALBUMIN HUMAN 25%- 100 ML 100 ML IV SCH (09:02)
[2018-05-09] MEDS: MILK OF MAGNESIA PO SCH ×2 (09:03→22:52)
[2018-05-09] MEDS: MAGIC MOUTHWASH MT SCH ×4 (09:04→20:14)
[2018-05-09] MEDS: DIFLUCAN 200 MG IV PREMIX* 200 MG/100 ML BAG IV SCH (09:59)
[2018-05-09] MEDS: D5 NS 1000 ML 1,000 ML IV SCH (10:00)
--- NOTE | 2018-05-09 10:13 | PCM.PROG ---
Progress Note - Progress Note for Day of Date of Exam: 05/08/18 - Subjective Subjective: WAS ADMITTED FOR PNEUMONIA, COPD EXACERBATION, AND A URINARY TRACT INFECTION. SHE REMAINS IN THE INTENSIVE CARE UNIT THIS MORNING. TODAY, SHE IS LETHARGIC, LYING IN BED WITH EYES CLOSED ON MORNING ROUNDS. SHE AWAKENS TO VERBAL STIMULI, BUT CONTINUES TO BE WEAK AND DROWSY. SHE CONTINUES WITH COMPLAINTS OF SHORTNESS OF BREATH AND WEAKNESS. ON EXAMINATION, HEART IS REGULAR IN RATE AND RHYTHM. BILATERAL LUNGS ARE NOTED WITH SCATTERED WHEEZING AND RHONCHI. ABDOMEN IS DISTENDED AND NOTED WITH DIFFUSE TENDERNESS TO PALPATION. SHE IS NOTED WITH TRACE EDEMA TO HER LOWER EXTREMITIES. HER VITALS THIS MORNING ARE 98.4-74-20-98%-96/52. LABS WERE OBTAINED. ABNORMAL LAB VALUES INCLUDE THE FOLLOWING: PLT COUNT 60, BUN 22, CALCIUM 11.1, CORRECTED CALCIUM 13.0, TOTAL BILI 2.40, TOTAL PROTEIN 4.9, ALBUMIN 1.6. URINE CULTURE AND SPUTUM CULTURES REPORT GROWTH OF E.COLI. BLOOD CULTURES REPORT GROWTH OF STREPTOCOCCUS PNEUMONIAE. A CHEST XRAY WAS OBTAINED AND REVEALED: Mild cardiomegaly without congestive heart failure. Right basilar subsegmental atelectasis. Mild hyperinflation with mild interstitial lung changes. Small bilateral pleural effusions. SHE IS CURRENTLY RECEIVING LEVAQUIN AND FORTAZ IV WELL RESPIRATORY TREATMENTS AND LEVOPHED. TODAY, WE WILL OBTAIN AN IONIZED CALCIUM LEVEL, SERUM INTACT PTH, SPEP LEVELS, UPEP LEVELS, AND ORDER A 3 PHASE BONE SCAN. WE WILL START ALBUMIN 25% IV DAILY AND CHANGE IV FLUIDS TO D5NS AT 50ML/HR. OTHERWISE, WE WILL FOLLOW UP WITH AM LABS AND CONTINUE TO MONITOR PATIENT. - Past Medical Family Social History Past Med/Fam/Surg Hx: No changes since H&P Allergies: Allergies aspirin Allergy (Verified 12/21/17 10:04) ibuprofen Allergy (Verified 12/21/17 10:04) - Review of Systems ROS: No change since H&P - Vital Signs and I&O's Vital Signs: Temperature 97.7 F Pulse Rate [Apical] 117 Pulse Rate 72 Respiratory Rate 28 Blood Pressure [Right Arm] 111/58 Blood Pressure [Left Arm] 105/58 Blood Pressure 105/60 O2 Sat by Pulse Oximetry 99 Intake and Output: Intake & Output 05/06/18 05/07/18 05/08/18 05/09/18 11:59 11:59 11:59 11:59 Intake Total 1653 / 1653 1352 / 1352 1396 / 1396 1727 / 1727 Output Total 1575 / 1575 550 / 550 1100 / 1100 1400 / 1400 Balance 78 / 78 802 / 802 296 / 296 327 / 327 - Physical Exam Oriented: Normal Eyes: Normal Ear: Normal Nose: Normal Throat: Normal Respiratory: Generalized, Wheezes, Rhonchi Cardiovascular: Normal. negative: S3, S4, Murmur : Normal Auscultation: Bowel Sounds: Normal Palpation: Normal Tenderness: Diffuse, Moderate, Other (DISTENTION). negative: Rebound, Guarding, Rigidity Skin: Normal Musculoskeletal: Normal Psychiatric: Normal Mood Description: Calm Affect: Normal Speech Pattern: Appropriate - Laboratory and Diagnostics Result Diagrams: 05/09/18 05:11 05/09/18 05:11 Labs: 05/02/18 16:10 Blood Blood Culture - Final 05/05/18 11:24 Sputum - Expectorated Sputum Sputum Culture - Final Escherichia Coli 05/05/18 11:24 Sputum - Expectorated Sputum - Final 05/02/18 17:40 Blood Blood Culture - Final Streptococcus Pneumoniae 05/02/18 19:45 Urine,Catheterized Urine Culture - Final Escherichia Coli Laboratory WBC 5.6 X10^3/uL (3.6-10.0) 05/09/18 05:11 RBC 3.90 X10^6/uL (3.5-5.4) 05/09/18 05:11 Hgb 11.8 g/dL (12.0-16.0) L 05/09/18 05:11 Hct 35.5 % (36.0-47.0) L 05/09/18 05:11 MCV 91.1 fL (80.0-100.0) 05/09/18 05:11 MCH 30.2 pg (27.0-34.0) 05/09/18 05:11 MCHC 33.1 g/dL (33.0-35.0) 05/09/18 05:11 RDW 16.1 % (11.6-16.5) 05/09/18 05:11 Plt Count 64 X10^3/uL (150.0-450.0) L 05/09/18 05:11 Plt Count Comment Decreased (ADEQUATE) A 05/09/18 05:11 MPV 8.7 fL (7.4-11.0) 05/09/18 05:11 Neut % (Auto) 80.7 % (42.0-75.0) H 05/09/18 05:11 Lymph % (Auto) 8.1 % (21.0-51.0) L 05/09/18 05:11 [place] % (Auto) 10.5 % (0.0-13.0) 05/09/18 05:11 Eos % (Auto) 0.5 % (0.9-2.9) L 05/09/18 05:11 Baso % (Auto) 0.2 % (0.2-1.0) 05/09/18 05:11 Neut # (Auto) 4.6 x10^3/uL (2.2-4.8) 05/09/18 05:11 Lymph # (Auto) 0.5 X10^3/uL (1.3-2.9) L 05/09/18 05:11 [place] # (Auto) 0.6 x10^3/uL (0.3-0.8) 05/09/18 05:11 Eos # (Auto) 0.0 x10^3/uL (0.0-0.2) 05/09/18 05:11 Baso # (Auto) 0.0 X10^3/uL (0.0-0.1) 05/09/18 05:11 Absolute Nucleated RBC 0.1 /100WBC 05/09/18 05:11 Total Counted 100 05/09/18 05:11 Neutrophils % (Manual) 70 % (39-76) 05/09/18 05:11 Band Neutrophils % 14 % (0-10) H 05/09/18 05:11 Lymphocytes % (Manual) 12 % (13-43) L 05/09/18 05:11 Monocytes % (Manual) 6 % (4-9) 05/09/18 05:11 Eosinophils % (Manual) Cancelled 05/02/18 17:40 Basophils % (Manual) Cancelled 05/02/18 17:40 Metamyelocytes % 3 05/07/18 04:52 Myelocytes % Cancelled 05/02/18 17:40 Promyelocytes % Cancelled 05/02/18 17:40 Nucleated RBCs Cancelled 05/02/18 17:40 Atypical Lymphocytes Cancelled 05/02/18 17:40 Blast Cells Cancelled 05/02/18 17:40 Smudge Cells Cancelled 05/02/18 17:40 Toxic Granulation Cancelled 05/02/18 17:40 Dohle Bodies Cancelled 05/02/18 17:40 Deepak Rods Cancelled 05/02/18 17:40 Plt Clumps, EDTA Cancelled 05/02/18 17:40 Giant Platelets Cancelled 05/02/18 17:40 Plt Morphology Comment Normal (NORMAL) 05/09/18 05:11 RBC Morphology Normal (NORMAL) 05/09/18 05:11 Dimorphic RBCs Cancelled 05/02/18 17:40 Polychromasia Cancelled 05/02/18 17:40 Hypochromasia Cancelled 05/02/18 17:40 Poikilocytosis Cancelled 05/02/18 17:40 Basophilic Stippling Cancelled 05/02/18 17:40 Anisocytosis Cancelled 05/02/18 17:40 Microcytosis Cancelled 05/02/18 17:40 Macrocytosis Cancelled 05/02/18 17:40 Spherocytes Cancelled 05/02/18 17:40 Pappenheimer Bodies Cancelled 05/02/18 17:40 Sickle Cells Cancelled 05/02/18 17:40 Target Cells Cancelled 05/02/18 17:40 Tear Drop Cells Cancelled 05/02/18 17:40 Ovalocytes Cancelled 05/02/18 17:40 Stomatocytes Cancelled 05/02/18 17:40 Helmet Cells Cancelled 05/02/18 17:40 Acevedo-Tiro Bodies Cancelled 05/02/18 17:40 [place] Rings Cancelled 05/02/18 17:40 Elijah Cells Cancelled 05/02/18 17:40 Crenated Cell Cancelled 05/02/18 17:40 Acanthocytes (Spur) Cancelled 05/02/18 17:40 Rouleaux Cancelled 05/02/18 17:40 Schistocytes Cancelled 05/02/18 17:40 Smear Path Review See note 05/02/18 17:40 D-Dimer 2480 ng/mL (0-400) H* 05/02/18 19:50 Sample Site Lbr 05/02/18 17:49 ABG pH 7.390 (7.35-7.45) 05/02/18 17:49 ABG pCO2 39.0 mmHg (35.0-45.0) 05/02/18 17:49 ABG pO2 94.0 mmHg (80.0-100.0) 05/02/18 17:49 ABG HCO3 23.6 mmol/L (22-26) 05/02/18 17:49 ABG O2 Saturation 97.0 % (90-100) 05/02/18 17:49 ABG Base Excess -1.2 mmol/L (-2.0-2.0) 05/02/18 17:49 Aries Test N/a 05/02/18 17:49 A-a Gradient 570.0 mmHg 05/02/18 17:49 FiO2 100 05/02/18 17:49 Blood Gas Comments Pt anne marie well cdn 05/02/18 17:49 Sodium 142 mmol/L (136-145) 05/09/18 05:11 Corrected Sodium TNP 05/09/18 05:11 Potassium 4.8 mmol/L (3.5-5.1) 05/09/18 05:11 Chloride 110 mmol/L (98-107) H 05/09/18 05:11 Carbon Dioxide 27.0 mmol/L (21-32) 05/09/18 05:11 BUN 18 mg/dL (7-18) 05/09/18 05:11 Creatinine 0.50 mg/dL (0.55-1.02) L 05/09/18 05:11 Est GFR (MDRD) Af Amer > 60 (>60) 05/09/18 05:11 Est GFR (MDRD) Non-Af > 60 (>60) 05/09/18 05:11 Glucose 104 mg/dL (65-99) H 05/09/18 05:11 POC Glucose (mg/dL) 93 mg/dL (65-99) 05/09/18 09:42 Lactic Acid 2.6 mmol/L (0.4-2.0) H 05/04/18 06:10 Calcium 11.5 mg/dL (8.5-10.1) H 05/09/18 05:11 Corrected Calcium 12.9 mg/dL (8.5-10.1) H 05/09/18 05:11 Magnesium 2.4 mg/dL (1.7-2.9) 05/04/18 06:10 Total Bilirubin 2.10 mg/dL (0.2-1.0) H 05/09/18 05:11 AST 23 Units/L (15-37) 05/09/18 05:11 ALT 18 Units/L (12-78) 05/09/18 05:11 Alkaline Phosphatase 62 Units/L (46-116) 05/09/18 05:11 Creatine Kinase 21 Units/L (26-192) L 05/04/18 06:10 CK-MB (CK-2) < 1.0 ng/mL (0-4.0) 05/04/18 06:10 CK/CKMB % Calc 4.8 % (<4) 05/04/18 06:10 Troponin I 0.02 ng/mL (0-1.5) 05/04/18 06:10 B-Natriuretic Peptide 529 pg/mL (0-79) H* 05/02/18 19:50 Total Protein 5.0 g/dL (6.4-8.2) L 05/09/18 05:11 Albumin 2.2 g/dL (3.4-5.0) L 05/09/18 05:11 Globulin 2.8 g/dL (2.5-4.5) 05/09/18 05:11 Albumin/Globulin Ratio 0.8 Ratio (1.1-2.1) L 05/09/18 05:11 Specimen Type Catherized urine 05/02/18 19:45 Urine Color [place] (YELLOW) 05/02/18 19:45 Urine Appearance Hazy (CLEAR) 05/02/18 19:45 Urine pH 6.0 (5.0 - 8.0) 05/02/18 19:45 Ur Specific [place] 1.020 (1.000-1.030) 05/02/18 19:45 Urine Protein 2+ (NEGATIVE) 05/02/18 19:45 Urine Glucose (UA) Negative (NEGATIVE) 05/02/18 19:45 Urine Ketones 1+ (NEGATIVE) 05/02/18 19:45 Urine Occult Blood 1+ (NEGATIVE) 05/02/18 19:45 Urine Nitrite Positive (NEGATIVE) 05/02/18 19:45 Urine Bilirubin 2+ (NEGATIVE) 05/02/18 19:45 Urine Urobilinogen 2+ (NORMAL) 05/02/18 19:45 Ur Leukocyte Esterase 1+ (NEGATIVE) 05/02/18 19:45 Urine RBC 3-5 /HPF (NONE SEEN) 05/02/18 19:45 Urine WBC 5-10 /HPF (NONE SEEN) 05/02/18 19:45 Ur Squamous Epith Cells Few /HPF (NEGATIVE) 05/02/18 19:45 Urine Bacteria 2+ /HPF (NEGATIVE) 05/02/18 19:45 Urine Mucus Few /HPF (NEGATIVE) 05/02/18 19:45 Ur Culture Indicated? Yes/culture set up 05/02/18 19:45 Urine Total Volume Cancelled 05/08/18 10:20 Urine Total Protein Cancelled 05/08/18 10:20 Urine Albumin (PEP) Cancelled 05/08/18 10:20 U [id number] Cancelled 05/08/18 10:20 U Acvxb-2-Uteqpmsf Cancelled 05/08/18 10:20 U Beta Globulin Cancelled 05/08/18 10:20 U Gamma Globulin Cancelled 05/08/18 10:20 U Free [place] Light Ch Cancelled 05/08/18 10:20 U Free [place] Excretion Cancelled 05/08/18 10:20 U Free Lambda Light Ch Cancelled 05/08/18 10:20 Free Lambda Excret 24 Cancelled 05/08/18 10:20 U Free [place]/Lambda 24 Cancelled 05/08/18 10:20 CARLOS & SPEP Interp Cancelled 05/08/18 10:20 - Plan (1) Multifocal pneumonia Status: Acute Plan: LEVAQUIN 750MG IV DAILY, ROCEPHIN 1GM IV DAILY, RESPIRATORY TREATMENTS, SUPPLEMENTAL OXYGEN, CONTINUE TO MONITOR. HER CONDITION IS GETTING WORSE. (2) COPD (chronic obstructive pulmonary disease) Status: Acute Qualifiers: COPD type: COPD with acute exacerbation Qualified Code(s): J44.1 - Chronic obstructive pulmonary disease with (acute) exacerbation Plan: RESPIRATORY TREATMENTS, SUPPLEMENTAL OXYGEN, IV ANTIBIOTICS, CONTINUE TO MONITOR (3) Streptococcus pneumoniae infection Status: Acute Plan: CONTINUE IV ANTIBIOTICS, CONTINUE TO MONITOR (4) E coli infection Status: Acute Plan: CONTINUE IV ANTIBIOTICS, CONTINUE TO MONITOR (5) Abdominal pain Status: Acute Qualifiers: Abdominal location: epigastric Qualified Code(s): R10.13 - Epigastric pain Plan: CONTINUE TO MONITOR (6) Oral candidiasis Status: Acute Plan: MAGIC MOUTHWASH QID, DIFLUCAN 200MG IV DAILY, CONTINUE TO MONITOR (7) Cirrhosis Status: Chronic Qualifiers: Hepatic cirrhosis type: unspecified hepatic cirrhosis Ascites presence: with ascites Qualified Code(s): K74.60 - Unspecified cirrhosis of liver; R18.8 - Other ascites Plan: CONTINUE HOME MEDS, CONTINUE TO MONITOR (8) Hepatitis Status: Chronic Plan: CONTINUE HOME MEDS, CONTINUE TO MONITOR
[2018-05-09] MEDS ORDERED: K-RIDER 10 MEQ/NS 100 ML 10 MEQ/100 ML BAG IV PRN (13:47)
[2018-05-09] MEDS ORDERED: K-DUR TAB 20 MEQ PO PRN (13:48)
[2018-05-09] MEDS ORDERED: POTASSIUM CHL 40 MEQ/NS 0.45% 500 ML IV PRN (13:48)
[2018-05-09] MEDS ORDERED: KLOR-CON PO PRN (13:48)
[2018-05-09] MEDS ORDERED: POTASSIUM CHL 60 MEQ/NS 0.45% 500 ML IV PRN (13:49)
[2018-05-09] MEDS ORDERED: POTASSIUM CHLORIDE LIQ 20 MEQ UDC PO PRN (13:49)
[2018-05-09] MEDS ORDERED: MICRO K EXTEN CAP 10 MEQ PO PRN (13:49)
[2018-05-09] MEDS ORDERED: ATARAX TAB 25 MG PO PRN (13:50)
[2018-05-09] MEDS ORDERED: ZOFRAN INJ 4 MG VIAL IVP PRN (13:50)
[2018-05-09] MEDS ORDERED: LEVOPHED INJ 8 MG in D5W 250 ML IV 242 ML IV PRN (13:50)
[2018-05-09] MEDS ORDERED: MAGNESIUM SULFATE 1 GRAM/100 mL PREMIX 1 GM/100 ML BAG IV PRN (13:50)
[2018-05-09] MEDS ORDERED: REGLAN INJ 10 MG VIAL IVP PRN (13:50)
[2018-05-09] MEDS: TORADOL 15 MG VIAL IVP PRN ×2 (14:00→20:56)
--- NOTE | 2018-05-09 14:24 | NM ---
BONE SCAN CLINICAL INDICATION: Back and bilateral feet pain PROCEDURE: Approximately 2-4 hours following intravenous administration of 30.2 mCi of [id number], whole body delayed planar images were obtained from the anterior and posterior projections. COMPARISON: None FINDINGS: There is normal by distribution of the radiotracer within the axial and appendicular skeleton. There is normal by distribution of the radiotracer within the genitourinary system and soft tissues. IMPRESSION: 1. Normal bone scan. Reported By:
[2018-05-09] MEDS ORDERED: D5 NS 1000 ML IV ONE (14:39)
[2018-05-09] MEDS ORDERED: D5 NS 1000 ML 1,000 ML IV ONE (17:31)
[2018-05-09] MEDS: MORPHINE SULFATE INJ 2 MG INJ IVP PRN (17:37)
[2018-05-09] MEDS ORDERED: LEXAPRO ONE (19:25)
[2018-05-09] MEDS: NEURONTIN TAB 600 MG PO SCH (20:13)
[2018-05-09] MEDS: PREVACID PO SCH (20:13)
[2018-05-09] MEDS: COLACE CAP 100 MG PO SCH (20:13)
[2018-05-09] MEDS: LEXAPRO PO SCH (20:14)
[2018-05-10] MEDS ORDERED: D5 NS 1000 ML 1,000 ML IV ONE (05:13)
[2018-05-10] MEDS: D5 NS 1000 ML 1,000 ML IV SCH ×2 (05:17→10:01)
[2018-05-10] MEDS: FORTAZ or TAZICEF VIAL INJ IVP SCH ×3 (05:18→21:00)
[2018-05-10 06:34] LABS: BASOPHILS % (AUTO) 0.3 % (0.2-1.0); EOSINOPHILS % (AUTO) 0.8 % (0.9-2.9); HEMATOCRIT 34.6 % (36.0-47.0); HEMOGLOBIN 11.2 g/dL (12.0-16.0); LYMPHOCYTES # (AUTO) 0.5 X10^3/uL (1.3-2.9); LYMPHOCYTES % (AUTO) 9.6 % (21.0-51.0); MEAN CORPUSCULAR HEMOGLOBIN 29.9 pg (27.0-34.0); MEAN CORPUSCULAR HGB CONC 32.3 g/dL (33.0-35.0); MEAN CORPUSCULAR VOLUME 92.6 fL (80.0-100.0); MEAN PLATELET VOLUME 9.4 fL (7.4-11.0); MONOCYTES # (AUTO) 0.6 x10^3/uL (0.3-0.8); MONOCYTES % (AUTO) 11.4 % (0.0-13.0); NEUTROPHILS # (AUTO) 3.9 x10^3/uL (2.2-4.8); NEUTROPHILS % (AUTO) 77.9 % (42.0-75.0); PLATELET COUNT 31 X10^3/uL (150.0-450.0); RED BLOOD COUNT 3.74 X10^6/uL (3.5-5.4); RED CELL DISTRIBUTION WIDTH 16.6 % (11.6-16.5)
[2018-05-10 06:42] LABS: ALANINE AMINOTRANSFERASE 20 Units/L (12-78); ALBUMIN 2.4 g/dL (3.4-5.0); ALKALINE PHOSPHATASE 56 Units/L (46-116); ASPARTATE AMINO TRANSFERASE 25 Units/L (15-37); BLOOD UREA NITROGEN 13 mg/dL (7-18); CALCIUM 10.7 mg/dL (8.5-10.1); CARBON DIOXIDE 24.3 mmol/L (21-32); CHLORIDE 112 mmol/L (98-107); COR NA(FOR HYPERGLY) 144 mmol/L (136-145); CREATININE 0.39 mg/dL (0.55-1.02); SODIUM 143 mmol/L (136-145); TOTAL PROTEIN 4.9 g/dL (6.4-8.2); eGFR NON BLACK RACES > 60 (>60)
[2018-05-10 07:18] LABS: BAND NEUTROPHILS % 10 % (0-10); PLATELET MORPHOLOGY COMMENT NORMAL (NORMAL)
--- NOTE | 2018-05-10 07:27 | RAD ---
HISTORY: Weakness, shortness of breath Study: Chest AP portable Comparison: 05/09/2018 Findings: The patient is rotated to the left. The heart is mildly enlarged. No definite congestive heart failure is identified. Interstitial lung changes are present bilaterally stable when compared with the prior examination. Subsegmental atelectasis is present in the right lung base. Minimal pleural effusions are likely present. IMPRESSION: Mild cardiomegaly without congestive heart failure Interstitial lung changes, stable Subsegmental atelectasis right lung base, stable Suspect small bilateral pleural effusions also stable Reported By:
[2018-05-10] MEDS: MILK OF MAGNESIA PO SCH ×2 (08:43→21:01)
[2018-05-10] MEDS: ROBITUSSIN DM PO SCH ×4 (08:43→21:00)
[2018-05-10] MEDS: ALBUMIN HUMAN 25%- 100 ML 100 ML IV SCH (08:44)
[2018-05-10] MEDS: LEVAQUIN PREMIX IV 750 MG 750 MG/150 ML BAG IV SCH (08:44)
[2018-05-10] MEDS: PERIACTIN TAB 4 MG PO SCH ×2 (08:45→20:59)
[2018-05-10] MEDS: ZYLOPRIM PO SCH (08:46)
[2018-05-10] MEDS: ANTIVERT TAB 25 MG PO PRN (08:46)
[2018-05-10] MEDS: HYDROCHLOROTHIAZIDE 25 MG TAB PO SCH (08:46)
[2018-05-10] MEDS: MAGIC MOUTHWASH MT SCH ×5 (08:47→21:01)
[2018-05-10] MEDS: ALDACTONE TAB 25 MG PO SCH (08:47)
[2018-05-10] MEDS: DIFLUCAN 200 MG IV PREMIX* 200 MG/100 ML BAG IV SCH (08:47)
[2018-05-10] MEDS: K-DUR TAB 20 MEQ PO SCH (08:48)
[2018-05-10] MEDS: VITAMIN D (1.25MG) PO SCH (08:50)
[2018-05-10] MEDS: TORADOL 15 MG VIAL IVP PRN ×2 (08:58→20:59)
[2018-05-10] MEDS ORDERED: MILK OF MAGNESIA PO SCH (09:00)
[2018-05-10] MEDS: XOPENEX 1.25 MG/3 ML NEBULE NEB SCH ×4 (09:00→20:20)
[2018-05-10 10:25] LABS: FREE T4 (FREE THYROXINE) 0.91 ng/dL (0.76-1.46); TSH (3RD GENERATION) 2.568 uIU/mL (0.358-3.74)
[2018-05-10] MEDS: CHRONULAC PO SCH ×3 (13:41→22:20)
--- NOTE | 2018-05-10 19:06 | PCM.PROG ---
Progress Note - Progress Note for Day of Date of Exam: 05/09/18 - Subjective Subjective: WAS ADMITTED FOR PNEUMONIA, COPD EXACERBATION, AND A URINARY TRACT INFECTION. SHE REMAINS IN THE INTENSIVE CARE UNIT THIS MORNING. TODAY, SHE IS LYING IN BED WITH EYES CLOSED ON MORNING ROUNDS. SHE AWAKENS TO VERBAL STIMULI, BUT CONTINUES TO BE WEAK AND DROWSY. SHE CONTINUES WITH CO MPLAINTS OF SHORTNESS OF BREATH AND COUGH. ON EXAMINATION, HEART IS REGULAR IN RATE AND RHYTHM. BILATERAL LUNGS ARE NOTED WITH SCATTERED WHEEZING AND RHONCHI. ABDOMEN IS DISTENDED AND NOTED WITH DIFFUSE TENDERNESS TO PALPATION. SHE IS NOTED WITH TRACE EDEMA TO HER LOWER EXTREMITIES. HER VITALS THIS MORNING ARE 98.4-68-16-100%-112/67. LABS WERE OBTAINED. ABNORMAL LAB VALUES INCLUDE THE FOLLOWING: HGB 11.8, HCT 35.5, PLT COUNT 64, CHLORIDE 110, CREATININE 0.50, GLUCOSE 104, CALCIUM 11.5, CORRECTED CALCIUM 12.9, TOTAL BILI 2.10, TOTAL PROTEIN 5.0, ALBUMIN 2.2. URINE CULTURE AND SPUTUM CULTURES REPORT GROWTH OF E.COLI. BLOOD CULTURES REPORT GROWTH OF STREPTOCOCCUS PNEUMONIAE. A CHEST XRAY WAS OBTAINED AND REVEALED: Bibasilar subsegmental atelectasis primarily at the right lung base. Limited inspiration and mild vascular congestion and tiny pleural effusions. WE OBTAINED A BONE SCAN TODAY. IT WAS NORMAL. SHE IS CURRENTLY RECEIVING LEVAQUIN AND FORTAZ IV WELL RESPIRATORY TREATMENTS AND LEVOPHED. TODAY, WE WILL INCREASE IV FLUIDS TO D5NS AT 100ML/HR AND CONTINUE WITH CURRENT PLAN OF CARE. OTHERWISE, WE WILL FOLLOW UP WITH AM LABS AND CONTINUE TO MONITOR PATIENT. - Past Medical Family Social History Past Med/Fam/Surg Hx: No changes since H&P Allergies: Allergies aspirin Allergy (Verified 12/21/17 10:04) ibuprofen Allergy (Verified 12/21/17 10:04) - Review of Systems ROS: No change since H&P - Vital Signs and I&O's Vital Signs: Temperature 99.5 F Pulse Rate [Apical] 117 Pulse Rate 86 Respiratory Rate 28 Blood Pressure [Right Arm] 111/58 Blood Pressure [Left Arm] 105/58 Blood Pressure 135/74 O2 Sat by Pulse Oximetry 96 Intake and Output: Intake & Output 05/08/18 05/09/18 05/10/18 05/11/18 11:59 11:59 11:59 11:59 Intake Total 1396 / 1396 1727 / 1727 1990 / 1990 Output Total 1100 / 1100 1400 / 1400 825 / 825 300 / 300 Balance 296 / 296 327 / 327 1166 / 1166 1790 / 1790 - Physical Exam Oriented: Normal Eyes: Normal Ear: Normal Nose: Normal Throat: Normal Respiratory: Generalized, Wheezes, Rhonchi Cardiovascular: Normal. negative: S3, S4, Murmur : Normal Auscultation: Bowel Sounds: Normal Palpation: Normal Tenderness: Diffuse, Moderate, Other (DISTENTION). negative: Rebound, Guarding, Rigidity Skin: Normal Musculoskeletal: Normal Psychiatric: Normal Mood Description: Calm Affect: Normal Speech Pattern: Appropriate - Laboratory and Diagnostics Result Diagrams: 05/10/18 05:05 05/10/18 05:05 Labs: 05/02/18 16:10 Blood Blood Culture - Final 05/05/18 11:24 Sputum - Expectorated Sputum Sputum Culture - Final Escherichia Coli 05/05/18 11:24 Sputum - Expectorated Sputum - Final 05/02/18 17:40 Blood Blood Culture - Final Streptococcus Pneumoniae 05/02/18 19:45 Urine,Catheterized Urine Culture - Final Escherichia Coli Laboratory WBC 5.0 X10^3/uL (3.6-10.0) 05/10/18 05:05 RBC 3.74 X10^6/uL (3.5-5.4) 05/10/18 05:05 Hgb 11.2 g/dL (12.0-16.0) L 05/10/18 05:05 Hct 34.6 % (36.0-47.0) L 05/10/18 05:05 MCV 92.6 fL (80.0-100.0) 05/10/18 05:05 MCH 29.9 pg (27.0-34.0) 05/10/18 05:05 MCHC 32.3 g/dL (33.0-35.0) L 05/10/18 05:05 RDW 16.6 % (11.6-16.5) H 05/10/18 05:05 Plt Count 31 X10^3/uL (150.0-450.0) L 05/10/18 05:05 Plt Count Comment Decreased (ADEQUATE) A 05/10/18 05:05 MPV 9.4 fL (7.4-11.0) 05/10/18 05:05 Neut % (Auto) 77.9 % (42.0-75.0) H 05/10/18 05:05 Lymph % (Auto) 9.6 % (21.0-51.0) L 05/10/18 05:05 [place] % (Auto) 11.4 % (0.0-13.0) 05/10/18 05:05 Eos % (Auto) 0.8 % (0.9-2.9) L 05/10/18 05:05 Baso % (Auto) 0.3 % (0.2-1.0) 05/10/18 05:05 Neut # (Auto) 3.9 x10^3/uL (2.2-4.8) 05/10/18 05:05 Lymph # (Auto) 0.5 X10^3/uL (1.3-2.9) L 05/10/18 05:05 [place] # (Auto) 0.6 x10^3/uL (0.3-0.8) 05/10/18 05:05 Eos # (Auto) 0.0 x10^3/uL (0.0-0.2) 05/10/18 05:05 Baso # (Auto) 0.0 X10^3/uL (0.0-0.1) 05/10/18 05:05 Absolute Nucleated RBC 0.2 /100WBC 05/10/18 05:05 Total Counted 100 05/10/18 05:05 Neutrophils % (Manual) 68 % (39-76) 05/10/18 05:05 Band Neutrophils % 10 % (0-10) 05/10/18 05:05 Lymphocytes % (Manual) 16 % (13-43) 05/10/18 05:05 Monocytes % (Manual) 4 % (4-9) 05/10/18 05:05 Eosinophils % (Manual) 2 % (0-6) 05/10/18 05:05 Basophils % (Manual) Cancelled 05/02/18 17:40 Metamyelocytes % 3 05/07/18 04:52 Myelocytes % Cancelled 05/02/18 17:40 Promyelocytes % Cancelled 05/02/18 17:40 Nucleated RBCs Cancelled 05/02/18 17:40 Atypical Lymphocytes Cancelled 05/02/18 17:40 Blast Cells Cancelled 05/02/18 17:40 Smudge Cells Cancelled 05/02/18 17:40 Toxic Granulation Cancelled 05/02/18 17:40 Dohle Bodies Cancelled 05/02/18 17:40 Deepak Rods Cancelled 05/02/18 17:40 Plt Clumps, EDTA Cancelled 05/02/18 17:40 Giant Platelets Cancelled 05/02/18 17:40 Plt Morphology Comment Normal (NORMAL) 05/10/18 05:05 RBC Morphology Normal (NORMAL) 05/10/18 05:05 Dimorphic RBCs Cancelled 05/02/18 17:40 Polychromasia Cancelled 05/02/18 17:40 Hypochromasia Cancelled 05/02/18 17:40 Poikilocytosis Cancelled 05/02/18 17:40 Basophilic Stippling Cancelled 05/02/18 17:40 Anisocytosis Cancelled 05/02/18 17:40 Microcytosis Cancelled 05/02/18 17:40 Macrocytosis Cancelled 05/02/18 17:40 Spherocytes Cancelled 05/02/18 17:40 Pappenheimer Bodies Cancelled 05/02/18 17:40 Sickle Cells Cancelled 05/02/18 17:40 Target Cells Cancelled 05/02/18 17:40 Tear Drop Cells Cancelled 05/02/18 17:40 Ovalocytes Cancelled 05/02/18 17:40 Stomatocytes Cancelled 05/02/18 17:40 Helmet Cells Cancelled 05/02/18 17:40 Acevedo-[place] Bodies Cancelled 05/02/18 17:40 [place] Rings Cancelled 05/02/18 17:40 Elijah Cells Cancelled 05/02/18 17:40 Crenated Cell Cancelled 05/02/18 17:40 Acanthocytes (Spur) Cancelled 05/02/18 17:40 Rouleaux Cancelled 05/02/18 17:40 Schistocytes Cancelled 05/02/18 17:40 Smear Path Review See note 05/02/18 17:40 D-Dimer 2480 ng/mL (0-400) H* 05/02/18 19:50 Sample Site Lbr 05/02/18 17:49 ABG pH 7.390 (7.35-7.45) 05/02/18 17:49 ABG pCO2 39.0 mmHg (35.0-45.0) 05/02/18 17:49 ABG pO2 94.0 mmHg (80.0-100.0) 05/02/18 17:49 ABG HCO3 23.6 mmol/L (22-26) 05/02/18 17:49 ABG O2 Saturation 97.0 % (90-100) 05/02/18 17:49 ABG Base Excess -1.2 mmol/L (-2.0-2.0) 05/02/18 17:49 Aries Test N/a 05/02/18 17:49 A-a Gradient 570.0 mmHg 05/02/18 17:49 FiO2 100 05/02/18 17:49 Blood Gas Comments Pt anne marie well cdn 05/02/18 17:49 Sodium 143 mmol/L (136-145) 05/10/18 05:05 Corrected Sodium 144 mmol/L (136-145) 05/10/18 05:05 Potassium 5.1 mmol/L (3.5-5.1) 05/10/18 05:05 Chloride 112 mmol/L (98-107) H 05/10/18 05:05 Carbon Dioxide 24.3 mmol/L (21-32) 05/10/18 05:05 BUN 13 mg/dL (7-18) 05/10/18 05:05 Creatinine 0.39 mg/dL (0.55-1.02) L 05/10/18 05:05 Est GFR (MDRD) Af Amer > 60 (>60) 05/10/18 05:05 Est GFR (MDRD) Non-Af > 60 (>60) 05/10/18 05:05 Glucose 122 mg/dL (65-99) H 05/10/18 05:05 POC Glucose (mg/dL) 140 mg/dL (65-99) H 05/10/18 17:08 Lactic Acid 2.6 mmol/L (0.4-2.0) H 05/04/18 06:10 Calcium 10.7 mg/dL (8.5-10.1) H 05/10/18 05:05 Corrected Calcium 12.0 mg/dL (8.5-10.1) H 05/10/18 05:05 Magnesium 2.4 mg/dL (1.7-2.9) 05/04/18 06:10 Total Bilirubin 2.00 mg/dL (0.2-1.0) H 05/10/18 05:05 AST 25 Units/L (15-37) 05/10/18 05:05 ALT 20 Units/L (12-78) 05/10/18 05:05 Alkaline Phosphatase 56 Units/L (46-116) 05/10/18 05:05 Ammonia 12 umol/L (11-32) 05/10/18 09:46 Creatine Kinase 21 Units/L (26-192) L 05/04/18 06:10 CK-MB (CK-2) < 1.0 ng/mL (0-4.0) 05/04/18 06:10 CK/CKMB % Calc 4.8 % (<4) 05/04/18 06:10 Troponin I 0.02 ng/mL (0-1.5) 05/04/18 06:10 B-Natriuretic Peptide 529 pg/mL (0-79) H* 05/02/18 19:50 Total Protein 4.9 g/dL (6.4-8.2) L 05/10/18 05:05 Albumin 2.4 g/dL (3.4-5.0) L 05/10/18 05:05 Globulin 2.5 g/dL (2.5-4.5) 05/10/18 05:05 Albumin/Globulin Ratio 1.0 Ratio (1.1-2.1) L 05/10/18 05:05 Free T4 0.91 ng/dL (0.76-1.46) 05/10/18 09:46 TSH 3rd Generation 2.568 uIU/mL (0.358-3.74) 05/10/18 09:46 Specimen Type Catherized urine 05/02/18 19:45 Urine Color Ivana (YELLOW) 05/02/18 19:45 Urine Appearance Hazy (CLEAR) 05/02/18 19:45 Urine pH 6.0 (5.0 - 8.0) 05/02/18 19:45 Ur Specific [place] 1.020 (1.000-1.030) 05/02/18 19:45 Urine Protein 2+ (NEGATIVE) 05/02/18 19:45 Urine Glucose (UA) Negative (NEGATIVE) 05/02/18 19:45 Urine Ketones 1+ (NEGATIVE) 05/02/18 19:45 Urine Occult Blood 1+ (NEGATIVE) 05/02/18 19:45 Urine Nitrite Positive (NEGATIVE) 05/02/18 19:45 Urine Bilirubin 2+ (NEGATIVE) 05/02/18 19:45 Urine Urobilinogen 2+ (NORMAL) 05/02/18 19:45 Ur Leukocyte Esterase 1+ (NEGATIVE) 05/02/18 19:45 Urine RBC 3-5 /HPF (NONE SEEN) 05/02/18 19:45 Urine WBC 5-10 /HPF (NONE SEEN) 05/02/18 19:45 Ur Squamous Epith Cells Few /HPF (NEGATIVE) 05/02/18 19:45 Urine Bacteria 2+ /HPF (NEGATIVE) 05/02/18 19:45 Urine Mucus Few /HPF (NEGATIVE) 05/02/18 19:45 Ur Culture Indicated? Yes/culture set up 05/02/18 19:45 TSH Receptor Antibody Cancelled 05/10/18 09:46 - Plan (1) Multifocal pneumonia Status: Acute Plan: LEVAQUIN 750MG IV DAILY, ROCEPHIN 1GM IV DAILY, RESPIRATORY TREATMENTS, SUPPLEMENTAL OXYGEN, CONTINUE TO MONITOR. HER CONDITION IS GETTING WORSE. (2) COPD (chronic obstructive pulmonary disease) Status: Acute Qualifiers: COPD type: COPD with acute exacerbation Qualified Code(s): J44.1 - Chronic obstructive pulmonary disease with (acute) exacerbation Plan: RESPIRATORY TREATMENTS, SUPPLEMENTAL OXYGEN, IV ANTIBIOTICS, CONTINUE TO MONITOR (3) Streptococcus pneumoniae infection Status: Acute Plan: CONTINUE IV ANTIBIOTICS, CONTINUE TO MONITOR (4) E coli infection Status: Acute Plan: CONTINUE IV ANTIBIOTICS, CONTINUE TO MONITOR (5) Abdominal pain Status: Acute Qualifiers: Abdominal location: epigastric Qualified Code(s): R10.13 - Epigastric pain Plan: CONTINUE TO MONITOR (6) Oral candidiasis Status: Acute Plan: MAGIC MOUTHWASH QID, DIFLUCAN 200MG IV DAILY, CONTINUE TO MONITOR (7) Cirrhosis Status: Chronic Qualifiers: Hepatic cirrhosis type: unspecified hepatic cirrhosis Ascites presence: with ascites Qualified Code(s): K74.60 - Unspecified cirrhosis of liver; R18.8 - Other ascites Plan: CONTINUE HOME MEDS, CONTINUE TO MONITOR (8) Hepatitis Status: Chronic Plan: CONTINUE HOME MEDS, CONTINUE TO MONITOR
--- NOTE | 2018-05-10 19:12 | PCM.PROG ---
Progress Note - Progress Note for Day of Date of Exam: 05/10/18 - Subjective Subjective: WAS ADMITTED FOR PNEUMONIA, COPD EXACERBATION, AND A URINARY TRACT INFECTION. SHE REMAINS IN THE INTENSIVE CARE UNIT THIS MORNING. TODAY, SHE IS ALERT AND ORIENTED, LYING IN BED ON MORNING ROUNDS. SHE REPORTS FEELING MUCH BETTER THAN THE PAST SEVERAL DAYS AND IS MUCH MORE ALERT TODAY. SHE CONTINUES WITH COMPLAINTS OF SHORTNESS OF BREATH, COUGH, AND WEAKNESS. ON EXAMINATION, HEART IS REGULAR IN RATE AND RHYTHM. BILATERAL LUNGS ARE NOTED WITH SCATTERED WHEEZING AND RHONCHI. ABDOMEN IS DISTENDED AND NOTED WITH DIFFUSE TENDERNESS TO PALPATION. SHE IS NOTED WITH TRACE EDEMA TO HER LOWER EXTREMITIES. HER VITALS THIS MORNING ARE 98.3-69-38-99%-117/98. LABS WERE OBTAINED. ABNORMAL LAB VALUES INCLUDE THE FOLLOWING: HGB 11.2, HGB 34.6, PLT COUNT 31, CHLORIDE 112, CREATININE 0.39, GLUCOSE 122, CALCIUM 10.7, TOTAL BILI 2.00, TOTAL PROTEIN 4.9, ALBUMIN 2.4. URINE CULTURE AND SPUTUM CULTURES REPORT GROWTH OF E.COLI. BLOOD CULTURES REPORT GROWTH OF STREPTOCOCCUS PNEUMONIAE. A CHEST XRAY WAS OBTAINED AND REVEALED: Mild cardiomegaly without congestive heart failure. Interstitial lung changes, stable. Subsegmental atelectasis right lung base, stable. Suspect small bilateral pleural effusions also stable. SHE IS CURRENTLY RECEIVING LEVAQUIN AND FORTAZ IV WELL RESPIRATORY TREATMENTS AND LEVOPHED. TODAY, WE WILL OBTAIN A TSH LEVEL AND AMMONIA LEVEL AND CONTINUE WITH CURRENT P ADALBERTO OF CARE. OTHERWISE, WE WILL FOLLOW UP WITH AM LABS AND CONTINUE TO MONITOR PATIENT. - Past Medical Family Social History Past Med/Fam/Surg Hx: No changes since H&P Allergies: Allergies aspirin Allergy (Verified 12/21/17 10:04) ibuprofen Allergy (Verified 12/21/17 10:04) - Review of Systems ROS: No change since H&P - Vital Signs and I&O's Vital Signs: Temperature 99.5 F Pulse Rate [Apical] 117 Pulse Rate 86 Respiratory Rate 28 Blood Pressure [Right Arm] 111/58 Blood Pressure [Left Arm] 105/58 Blood Pressure 135/74 O2 Sat by Pulse Oximetry 96 Intake and Output: Intake & Output 05/08/18 05/09/18 05/10/18 05/11/18 11:59 11:59 11:59 11:59 Intake Total 1396 / 1396 1727 / 1727 1990 / 1990 2089 / 2089 Output Total 1100 / 1100 1400 / 1400 825 / 825 300 / 300 Balance 296 / 296 327 / 327 1166 / 1166 1790 / 1790 - Physical Exam Oriented: Normal Eyes: Normal Ear: Normal Nose: Normal Throat: Normal Respiratory: Generalized, Wheezes, Rhonchi Cardiovascular: Normal. negative: S3, S4, Murmur : Normal Auscultation: Bowel Sounds: Normal Tenderness: Diffuse, Moderate, Other (DISTENTION). negative: Rebound, Guarding, Rigidity Skin: Normal Musculoskeletal: Normal Psychiatric: Normal Mood Description: Calm Affect: Normal Speech Pattern: Appropriate - Laboratory and Diagnostics Result Diagrams: 05/10/18 05:05 05/10/18 05:05 Labs: 05/02/18 16:10 Blood Blood Culture - Final 05/05/18 11:24 Sputum - Expectorated Sputum Sputum Culture - Final Escherichia Coli 05/05/18 11:24 Sputum - Expectorated Sputum - Final 05/02/18 17:40 Blood Blood Culture - Final Streptococcus Pneumoniae 05/02/18 19:45 Urine,Catheterized Urine Culture - Final Escherichia Coli Laboratory WBC 5.0 X10^3/uL (3.6-10.0) 05/10/18 05:05 RBC 3.74 X10^6/uL (3.5-5.4) 05/10/18 05:05 Hgb 11.2 g/dL (12.0-16.0) L 05/10/18 05:05 Hct 34.6 % (36.0-47.0) L 05/10/18 05:05 MCV 92.6 fL (80.0-100.0) 05/10/18 05:05 MCH 29.9 pg (27.0-34.0) 05/10/18 05:05 MCHC 32.3 g/dL (33.0-35.0) L 05/10/18 05:05 RDW 16.6 % (11.6-16.5) H 05/10/18 05:05 Plt Count 31 X10^3/uL (150.0-450.0) L 05/10/18 05:05 Plt Count Comment Decreased (ADEQUATE) A 05/10/18 05:05 MPV 9.4 fL (7.4-11.0) 05/10/18 05:05 Neut % (Auto) 77.9 % (42.0-75.0) H 05/10/18 05:05 Lymph % (Auto) 9.6 % (21.0-51.0) L 05/10/18 05:05 [place] % (Auto) 11.4 % (0.0-13.0) 05/10/18 05:05 Eos % (Auto) 0.8 % (0.9-2.9) L 05/10/18 05:05 Baso % (Auto) 0.3 % (0.2-1.0) 05/10/18 05:05 Neut # (Auto) 3.9 x10^3/uL (2.2-4.8) 05/10/18 05:05 Lymph # (Auto) 0.5 X10^3/uL (1.3-2.9) L 05/10/18 05:05 [place] # (Auto) 0.6 x10^3/uL (0.3-0.8) 05/10/18 05:05 Eos # (Auto) 0.0 x10^3/uL (0.0-0.2) 05/10/18 05:05 Baso # (Auto) 0.0 X10^3/uL (0.0-0.1) 05/10/18 05:05 Absolute Nucleated RBC 0.2 /100WBC 05/10/18 05:05 Total Counted 100 05/10/18 05:05 Neutrophils % (Manual) 68 % (39-76) 05/10/18 05:05 Band Neutrophils % 10 % (0-10) 05/10/18 05:05 Lymphocytes % (Manual) 16 % (13-43) 05/10/18 05:05 Monocytes % (Manual) 4 % (4-9) 05/10/18 05:05 Eosinophils % (Manual) 2 % (0-6) 05/10/18 05:05 Basophils % (Manual) Cancelled 05/02/18 17:40 Metamyelocytes % 3 05/07/18 04:52 Myelocytes % Cancelled 05/02/18 17:40 Promyelocytes % Cancelled 05/02/18 17:40 Nucleated RBCs Cancelled 05/02/18 17:40 Atypical Lymphocytes Cancelled 05/02/18 17:40 Blast Cells Cancelled 05/02/18 17:40 Smudge Cells Cancelled 05/02/18 17:40 Toxic Granulation Cancelled 05/02/18 17:40 Dohle Bodies Cancelled 05/02/18 17:40 Deepak Rods Cancelled 05/02/18 17:40 Plt Clumps, EDTA Cancelled 05/02/18 17:40 Giant Platelets Cancelled 05/02/18 17:40 Plt Morphology Comment Normal (NORMAL) 05/10/18 05:05 RBC Morphology Normal (NORMAL) 05/10/18 05:05 Dimorphic RBCs Cancelled 05/02/18 17:40 Polychromasia Cancelled 05/02/18 17:40 Hypochromasia Cancelled 05/02/18 17:40 Poikilocytosis Cancelled 05/02/18 17:40 Basophilic Stippling Cancelled 05/02/18 17:40 Anisocytosis Cancelled 05/02/18 17:40 Microcytosis Cancelled 05/02/18 17:40 Macrocytosis Cancelled 05/02/18 17:40 Spherocytes Cancelled 05/02/18 17:40 Pappenheimer Bodies Cancelled 05/02/18 17:40 Sickle Cells Cancelled 05/02/18 17:40 Target Cells Cancelled 05/02/18 17:40 Tear Drop Cells Cancelled 05/02/18 17:40 Ovalocytes Cancelled 05/02/18 17:40 Stomatocytes Cancelled 05/02/18 17:40 Helmet Cells Cancelled 05/02/18 17:40 Acevedo-Denhoff Bodies Cancelled 05/02/18 17:40 [place] Rings Cancelled 05/02/18 17:40 Elijah Cells Cancelled 05/02/18 17:40 Crenated Cell Cancelled 05/02/18 17:40 Acanthocytes (Spur) Cancelled 05/02/18 17:40 Rouleaux Cancelled 05/02/18 17:40 Schistocytes Cancelled 05/02/18 17:40 Smear Path Review See note 05/02/18 17:40 D-Dimer 2480 ng/mL (0-400) H* 05/02/18 19:50 Sample Site Lbr 05/02/18 17:49 ABG pH 7.390 (7.35-7.45) 05/02/18 17:49 ABG pCO2 39.0 mmHg (35.0-45.0) 05/02/18 17:49 ABG pO2 94.0 mmHg (80.0-100.0) 05/02/18 17:49 ABG HCO3 23.6 mmol/L (22-26) 05/02/18 17:49 ABG O2 Saturation 97.0 % (90-100) 05/02/18 17:49 ABG Base Excess -1.2 mmol/L (-2.0-2.0) 05/02/18 17:49 Aries Test N/a 05/02/18 17:49 A-a Gradient 570.0 mmHg 05/02/18 17:49 FiO2 100 05/02/18 17:49 Blood Gas Comments Pt anne marie well cdn 05/02/18 17:49 Sodium 143 mmol/L (136-145) 05/10/18 05:05 Corrected Sodium 144 mmol/L (136-145) 05/10/18 05:05 Potassium 5.1 mmol/L (3.5-5.1) 05/10/18 05:05 Chloride 112 mmol/L (98-107) H 05/10/18 05:05 Carbon Dioxide 24.3 mmol/L (21-32) 05/10/18 05:05 BUN 13 mg/dL (7-18) 05/10/18 05:05 Creatinine 0.39 mg/dL (0.55-1.02) L 05/10/18 05:05 Est GFR (MDRD) Af Amer > 60 (>60) 05/10/18 05:05 Est GFR (MDRD) Non-Af > 60 (>60) 05/10/18 05:05 Glucose 122 mg/dL (65-99) H 05/10/18 05:05 POC Glucose (mg/dL) 140 mg/dL (65-99) H 05/10/18 17:08 Lactic Acid 2.6 mmol/L (0.4-2.0) H 05/04/18 06:10 Calcium 10.7 mg/dL (8.5-10.1) H 05/10/18 05:05 Corrected Calcium 12.0 mg/dL (8.5-10.1) H 05/10/18 05:05 Magnesium 2.4 mg/dL (1.7-2.9) 05/04/18 06:10 Total Bilirubin 2.00 mg/dL (0.2-1.0) H 05/10/18 05:05 AST 25 Units/L (15-37) 05/10/18 05:05 ALT 20 Units/L (12-78) 05/10/18 05:05 Alkaline Phosphatase 56 Units/L (46-116) 05/10/18 05:05 Ammonia 12 umol/L (11-32) 05/10/18 09:46 Creatine Kinase 21 Units/L (26-192) L 05/04/18 06:10 CK-MB (CK-2) < 1.0 ng/mL (0-4.0) 05/04/18 06:10 CK/CKMB % Calc 4.8 % (<4) 05/04/18 06:10 Troponin I 0.02 ng/mL (0-1.5) 05/04/18 06:10 B-Natriuretic Peptide 529 pg/mL (0-79) H* 05/02/18 19:50 Total Protein 4.9 g/dL (6.4-8.2) L 05/10/18 05:05 Albumin 2.4 g/dL (3.4-5.0) L 05/10/18 05:05 Globulin 2.5 g/dL (2.5-4.5) 05/10/18 05:05 Albumin/Globulin Ratio 1.0 Ratio (1.1-2.1) L 05/10/18 05:05 Free T4 0.91 ng/dL (0.76-1.46) 05/10/18 09:46 TSH 3rd Generation 2.568 uIU/mL (0.358-3.74) 05/10/18 09:46 Specimen Type Catherized urine 05/02/18 19:45 Urine Color Ivana (YELLOW) 05/02/18 19:45 Urine Appearance Hazy (CLEAR) 05/02/18 19:45 Urine pH 6.0 (5.0 - 8.0) 05/02/18 19:45 Ur Specific [place] 1.020 (1.000-1.030) 05/02/18 19:45 Urine Protein 2+ (NEGATIVE) 05/02/18 19:45 Urine Glucose (UA) Negative (NEGATIVE) 05/02/18 19:45 Urine Ketones 1+ (NEGATIVE) 05/02/18 19:45 Urine Occult Blood 1+ (NEGATIVE) 05/02/18 19:45 Urine Nitrite Positive (NEGATIVE) 05/02/18 19:45 Urine Bilirubin 2+ (NEGATIVE) 05/02/18 19:45 Urine Urobilinogen 2+ (NORMAL) 05/02/18 19:45 Ur Leukocyte Esterase 1+ (NEGATIVE) 05/02/18 19:45 Urine RBC 3-5 /HPF (NONE SEEN) 05/02/18 19:45 Urine WBC 5-10 /HPF (NONE SEEN) 05/02/18 19:45 Ur Squamous Epith Cells Few /HPF (NEGATIVE) 05/02/18 19:45 Urine Bacteria 2+ /HPF (NEGATIVE) 05/02/18 19:45 Urine Mucus Few /HPF (NEGATIVE) 05/02/18 19:45 Ur Culture Indicated? Yes/culture set up 05/02/18 19:45 TSH Receptor Antibody Cancelled 05/10/18 09:46 - Plan (1) Multifocal pneumonia Status: Acute Plan: LEVAQUIN 750MG IV DAILY, ROCEPHIN 1GM IV DAILY, RESPIRATORY TREATMENTS, SUPPLEMENTAL OXYGEN, CONTINUE TO MONITOR. HER CONDITION IS GETTING WORSE. (2) COPD (chronic obstructive pulmonary disease) Status: Acute Qualifiers: COPD type: COPD with acute exacerbation Qualified Code(s): J44.1 - Chronic obstructive pulmonary disease with (acute) exacerbation Plan: RESPIRATORY TREATMENTS, SUPPLEMENTAL OXYGEN, IV ANTIBIOTICS, CONTINUE TO MONITOR (3) Streptococcus pneumoniae infection Status: Acute Plan: CONTINUE IV ANTIBIOTICS, CONTINUE TO MONITOR (4) E coli infection Status: Acute Plan: CONTINUE IV ANTIBIOTICS, CONTINUE TO MONITOR (5) Abdominal pain Status: Acute Qualifiers: Abdominal location: epigastric Qualified Code(s): R10.13 - Epigastric pain Plan: CONTINUE TO MONITOR (6) Oral candidiasis Status: Acute Plan: MAGIC MOUTHWASH QID, DIFLUCAN 200MG IV DAILY, CONTINUE TO MONITOR (7) Cirrhosis Status: Chronic Qualifiers: Hepatic cirrhosis type: unspecified hepatic cirrhosis Ascites presence: with ascites Qualified Code(s): K74.60 - Unspecified cirrhosis of liver; R18.8 - Other ascites Plan: CONTINUE HOME MEDS, CONTINUE TO MONITOR (8) Hepatitis Status: Chronic Plan: CONTINUE HOME MEDS, CONTINUE TO MONITOR
[2018-05-10] MEDS ORDERED: LEXAPRO ONE (20:50)
[2018-05-10] MEDS: COLACE CAP 100 MG PO SCH (20:59)
[2018-05-10] MEDS: NEURONTIN TAB 600 MG PO SCH (20:59)
[2018-05-10] MEDS: PREVACID PO SCH (20:59)
[2018-05-10] MEDS: LEXAPRO PO SCH (21:00)
[2018-05-11] MEDS ORDERED: LANTISEPTIC ONE ×2 (03:30→11:23)
[2018-05-11] MEDS ORDERED: LANTISEPTIC TOP PRN (03:48)
[2018-05-11] MEDS: ROBITUSSIN DM PO SCH ×4 (03:53→20:53)
[2018-05-11] MEDS: MORPHINE SULFATE INJ 2 MG INJ IVP PRN ×3 (03:54→19:18)
[2018-05-11 05:31] LABS: BASOPHILS % (AUTO) 0.7 % (0.2-1.0); EOSINOPHILS % (AUTO) 0.7 % (0.9-2.9); HEMATOCRIT 42.2 % (36.0-47.0); LYMPHOCYTES # (AUTO) 0.6 X10^3/uL (1.3-2.9); LYMPHOCYTES % (AUTO) 10.2 % (21.0-51.0); MEAN CORPUSCULAR HGB CONC 32.3 g/dL (33.0-35.0); MEAN CORPUSCULAR VOLUME 93.1 fL (80.0-100.0); MEAN PLATELET VOLUME 9.1 fL (7.4-11.0); MONOCYTES # (AUTO) 0.7 x10^3/uL (0.3-0.8); MONOCYTES % (AUTO) 12.8 % (0.0-13.0); NEUTROPHILS # (AUTO) 4.3 x10^3/uL (2.2-4.8); NEUTROPHILS % (AUTO) 75.6 % (42.0-75.0); PLATELET COUNT 86 X10^3/uL (150.0-450.0); RED BLOOD COUNT 4.53 X10^6/uL (3.5-5.4); RED CELL DISTRIBUTION WIDTH 16.9 % (11.6-16.5); WHITE BLOOD COUNT 5.6 X10^3/uL (3.6-10.0)
[2018-05-11 05:45] LABS: ALANINE AMINOTRANSFERASE 26 Units/L (12-78); ALBUMIN 3.3 g/dL (3.4-5.0); ALKALINE PHOSPHATASE 76 Units/L (46-116); ASPARTATE AMINO TRANSFERASE 25 Units/L (15-37); BLOOD UREA NITROGEN 11 mg/dL (7-18); CALCIUM 10.9 mg/dL (8.5-10.1); CARBON DIOXIDE 27.4 mmol/L (21-32); CHLORIDE 108 mmol/L (98-107); COR CA(FOR HYPOALB) 11.5 mg/dL (8.5-10.1); COR NA(FOR HYPERGLY) 144 mmol/L (136-145); SODIUM 143 mmol/L (136-145); TOTAL PROTEIN 6.2 g/dL (6.4-8.2); eGFR NON BLACK RACES > 60 (>60)
[2018-05-11 06:05] LABS: BAND NEUTROPHILS % 4 % (0-10); HEMOGLOBIN 13.6 g/dL (12.0-16.0); PLATELET MORPHOLOGY COMMENT NORMAL (NORMAL)
[2018-05-11] MEDS: FORTAZ or TAZICEF VIAL INJ IVP SCH ×3 (06:17→21:49)
[2018-05-11] MEDS: CHRONULAC PO SCH ×3 (06:17→21:55)
--- NOTE | 2018-05-11 07:03 | RAD ---
HISTORY: Shortness of breath, weakness Study: Chest AP portable Comparison: 05/10/2018 Findings: The heart is enlarged. No definite congestive heart failure is identified. The aorta is calcified. The lungs are free of acute alveolar infiltrates. Interstitial lung changes are present, stable. Subsegmental atelectasis is present in the lung bases bilaterally. Bilateral small pleural effusions are likely present. The bony thorax is unremarkable. IMPRESSION: No significant change from the prior examination Reported By:
[2018-05-11] MEDS: LEVAQUIN PREMIX IV 750 MG 750 MG/150 ML BAG IV SCH (08:10)
[2018-05-11] MEDS: ALBUMIN HUMAN 25%- 100 ML 100 ML IV SCH (08:10)
[2018-05-11] MEDS: D5 NS 1000 ML 1,000 ML IV SCH ×2 (08:11→09:23)
[2018-05-11] MEDS: MAGIC MOUTHWASH MT SCH ×4 (08:11→20:51)
[2018-05-11] MEDS: ZYLOPRIM PO SCH (08:11)
[2018-05-11] MEDS: PERIACTIN TAB 4 MG PO SCH ×2 (08:12→20:49)
[2018-05-11] MEDS: HYDROCHLOROTHIAZIDE 25 MG TAB PO SCH (08:12)
[2018-05-11] MEDS: MILK OF MAGNESIA PO SCH ×2 (08:12→21:00)
[2018-05-11] MEDS: ANTIVERT TAB 25 MG PO PRN (08:12)
[2018-05-11] MEDS: ALDACTONE TAB 25 MG PO SCH (08:12)
[2018-05-11] MEDS: K-DUR TAB 20 MEQ PO SCH (08:12)
[2018-05-11] MEDS: XOPENEX 1.25 MG/3 ML NEBULE NEB SCH ×5 (08:32→20:45)
[2018-05-11] MEDS: DIFLUCAN 200 MG IV PREMIX* 200 MG/100 ML BAG IV SCH (09:23)
[2018-05-11] MEDS: TORADOL 15 MG VIAL IVP PRN (14:51)
[2018-05-11] MEDS ORDERED: LEXAPRO ONE (20:41)
[2018-05-11] MEDS: PREVACID PO SCH (20:49)
[2018-05-11] MEDS: LEXAPRO PO SCH (20:50)
[2018-05-11] MEDS: COLACE CAP 100 MG PO SCH (20:50)
[2018-05-11] MEDS: NEURONTIN TAB 600 MG PO SCH (20:52)
[2018-05-11] MEDS ORDERED: NS 50 ML IV 50 ML IV ONE (21:12)
[2018-05-12] MEDS: ROBITUSSIN DM PO SCH ×2 (03:01→08:37)
[2018-05-12 05:14] LABS: BASOPHILS % (AUTO) 0.8 % (0.2-1.0); HEMATOCRIT 32.9 % (36.0-47.0); LYMPHOCYTES # (AUTO) 0.4 X10^3/uL (1.3-2.9); MEAN CORPUSCULAR HEMOGLOBIN 30.1 pg (27.0-34.0); MEAN CORPUSCULAR HGB CONC 32.5 g/dL (33.0-35.0); MEAN CORPUSCULAR VOLUME 92.6 fL (80.0-100.0); MEAN PLATELET VOLUME 9.4 fL (7.4-11.0); MONOCYTES # (AUTO) 0.6 x10^3/uL (0.3-0.8); MONOCYTES % (AUTO) 17.3 % (0.0-13.0); NEUTROPHILS # (AUTO) 2.6 x10^3/uL (2.2-4.8); NEUTROPHILS % (AUTO) 70.9 % (42.0-75.0); PLATELET COUNT 74 X10^3/uL (150.0-450.0); RED BLOOD COUNT 3.55 X10^6/uL (3.5-5.4); RED CELL DISTRIBUTION WIDTH 17.5 % (11.6-16.5); WHITE BLOOD COUNT 3.7 X10^3/uL (3.6-10.0)
[2018-05-12 05:33] LABS: HEMOGLOBIN 10.7 g/dL (12.0-16.0)
[2018-05-12 05:38] LABS: ALANINE AMINOTRANSFERASE 21 Units/L (12-78); ALBUMIN 2.9 g/dL (3.4-5.0); ALKALINE PHOSPHATASE 65 Units/L (46-116); ASPARTATE AMINO TRANSFERASE 21 Units/L (15-37); BLOOD UREA NITROGEN 9 mg/dL (7-18); CARBON DIOXIDE 27.7 mmol/L (21-32); CHLORIDE 109 mmol/L (98-107); COR CA(FOR HYPOALB) 10.9 mg/dL (8.5-10.1); COR NA(FOR HYPERGLY) 143 mmol/L (136-145); CREATININE 0.39 mg/dL (0.55-1.02); SODIUM 141 mmol/L (136-145); TOTAL PROTEIN 5.2 g/dL (6.4-8.2); eGFR NON BLACK RACES > 60 (>60)
[2018-05-12] MEDS ORDERED: NS 50 ML IV 50 ML IV ONE (05:47)
[2018-05-12] MEDS: FORTAZ or TAZICEF VIAL INJ IVP SCH (06:20)
[2018-05-12] MEDS: CHRONULAC PO SCH (06:20)
[2018-05-12] MEDS: LEVAQUIN PREMIX IV 750 MG 750 MG/150 ML BAG IV SCH (08:36)
[2018-05-12] MEDS: ALBUMIN HUMAN 25%- 100 ML 100 ML IV SCH (08:36)
[2018-05-12] MEDS: VITAMIN D (1.25MG) PO SCH ×2 (08:37→09:23)
[2018-05-12] MEDS: DIFLUCAN 200 MG IV PREMIX* 200 MG/100 ML BAG IV SCH (08:37)
[2018-05-12] MEDS: ZYLOPRIM PO SCH (08:38)
[2018-05-12] MEDS: HYDROCHLOROTHIAZIDE 25 MG TAB PO SCH (08:38)
[2018-05-12] MEDS: ANTIVERT TAB 25 MG PO PRN (08:38)
[2018-05-12] MEDS: K-DUR TAB 20 MEQ PO SCH (08:38)
[2018-05-12] MEDS: PERIACTIN TAB 4 MG PO SCH (08:38)
[2018-05-12] MEDS: MILK OF MAGNESIA PO SCH (08:38)
[2018-05-12] MEDS: ALDACTONE TAB 25 MG PO SCH (08:38)
[2018-05-12] MEDS: MAGIC MOUTHWASH MT SCH (08:39)
[2018-05-12] MEDS: XOPENEX 1.25 MG/3 ML NEBULE NEB SCH ×2 (08:50→12:26)
[2018-05-12] MEDS: MORPHINE SULFATE INJ 2 MG INJ IVP PRN (09:15)
[2018-05-12 12:28] VITALS: BP 130/62
[2018-05-13 03:08] LABS: ALBUMIN (SPEP) 2.45 g/dL (3.75-5.01); ALPHA-1 (SPEP) 0.41 g/dL (0.19-0.46); ALPHA-2 (SPEP) 0.89 g/dL (0.48-1.05); GAMMA (SPEP) 0.73 g/dL (0.62-1.51)
[2018-05-13 07:18] LABS: PARATHYROID HORMONE INT 19 pg/mL (15-65)
--- NOTE | 2018-05-25 09:39 | PCM.PROG ---
Progress Note - Progress Note for Day of Date of Exam: 05/11/18 - Subjective Subjective: WAS ADMITTED FOR PNEUMONIA, COPD EXACERBATION, AND A URINARY TRACT INFECTION. SHE REMAINS IN THE INTENSIVE CARE UNIT THIS MORNING. TODAY, SHE IS ALERT AND ORIENTED, LYING IN BED ON MORNING ROUNDS. SHE CONTINUES WITH COMPLAINTS OF SHORTNESS OF BREATH, COUGH, AND WEAKNESS. ON EXAMINATION, HEART IS REGULAR IN RATE AND RHYTHM. BILATERAL LUNGS ARE NOTED WITH SCATTERED WHEEZING AND RHONCHI. ABDOMEN IS DISTENDED AND NOTED WITH DIFFUSE TENDERNESS TO PALPATION. SHE IS NOTED WITH TRACE EDEMA TO HER LOWER EXTREMITIES. HER VITALS THIS MORNING ARE 98.1-73-32-95%nc-126/68. LABS WERE OBTAINED. ABNORMAL LAB VALUES INCLUDE THE FOLLOWING: PLT COUNT 86, CHLORIDE 108, CREATININE 0.50, GLUCOSE 135, CALCIUM 10.9, TOTAL BILI 2.20, TOTAL PROTEIN 6.2, ALBUMIN 3.3. URINE CULTURE AND SPUTUM CULTURES REPORT GROWTH OF E.COLI. BLOOD CULTURES REPORT GROWTH OF STREPTOCOCCUS PNEUMONIAE. A CHEST XRAY WAS OBTAINED AND REVEALED: NO CHANGE FROM YESTERDAY. SHE IS CURRENTLY RECEIVING LEVAQUIN AND FORTAZ IV WELL RESPIRATORY TREATMENTS AND LEVOPHED. TODAY, WE WILL CONTINUE WITH CURRENT PLAN OF CARE. OTHERWISE, WE WILL FOLLOW UP WITH AM LABS AND CONTINUE TO MONITOR PATIENT. - Past Medical Family Social History Past Med/Fam/Surg Hx: No changes since H&P Allergies: Allergies aspirin Allergy (Verified 12/21/17 10:04) ibuprofen Allergy (Verified 12/21/17 10:04) - Review of Systems ROS: No change since H&P - Vital Signs and I&O's Vital Signs: Temperature 98 F Pulse Rate [Right Brachial] 79 Pulse Rate [Apical] 117 Pulse Rate 74 Respiratory Rate 18 Blood Pressure [Right Arm] 130/62 Blood Pressure [Left Arm] 105/58 Blood Pressure 121/60 O2 Sat by Pulse Oximetry 92 - Physical Exam Oriented: Normal Eyes: Normal Ear: Normal Nose: Normal Throat: Normal Respiratory: Generalized, Wheezes, Rhonchi Cardiovascular: Normal. negative: S3, S4, Murmur : Normal Auscultation: Bowel Sounds: Normal Tenderness: Diffuse, Moderate, Other (DISTENTION). negative: Rebound, Guarding, Rigidity Skin: Normal Musculoskeletal: Normal Psychiatric: Normal Mood Description: Calm Affect: Normal Speech Pattern: Clear, Appropriate - Laboratory and Diagnostics Result Diagrams: 05/12/18 04:52 05/12/18 05:00 Labs: 05/09/18 10:51 Blood Blood Culture - Final 05/09/18 11:00 Blood Blood Culture - Final 05/02/18 16:10 Blood Blood Culture - Final 05/05/18 11:24 Sputum - Expectorated Sputum Sputum Culture - Final Escherichia Coli 05/05/18 11:24 Sputum - Expectorated Sputum - Final 05/02/18 17:40 Blood Blood Culture - Final Streptococcus Pneumoniae 05/02/18 19:45 Urine,Catheterized Urine Culture - Final Escherichia Coli Laboratory WBC 3.7 X10^3/uL (3.6-10.0) 05/12/18 04:52 RBC 3.55 X10^6/uL (3.5-5.4) 05/12/18 04:52 Hgb 10.7 g/dL (12.0-16.0) L D 05/12/18 04:52 Hct 32.9 % (36.0-47.0) L 05/12/18 04:52 MCV 92.6 fL (80.0-100.0) 05/12/18 04:52 MCH 30.1 pg (27.0-34.0) 05/12/18 04:52 MCHC 32.5 g/dL (33.0-35.0) L 05/12/18 04:52 RDW 17.5 % (11.6-16.5) H 05/12/18 04:52 Plt Count 74 X10^3/uL (150.0-450.0) L 05/12/18 04:52 Plt Count Comment Decreased (ADEQUATE) A 05/11/18 05:05 MPV 9.4 fL (7.4-11.0) 05/12/18 04:52 Neut % (Auto) 70.9 % (42.0-75.0) 05/12/18 04:52 Lymph % (Auto) 10.0 % (21.0-51.0) L 05/12/18 04:52 [place] % (Auto) 17.3 % (0.0-13.0) H 05/12/18 04:52 Eos % (Auto) 1.0 % (0.9-2.9) 05/12/18 04:52 Baso % (Auto) 0.8 % (0.2-1.0) 05/12/18 04:52 Neut # (Auto) 2.6 x10^3/uL (2.2-4.8) 05/12/18 04:52 Lymph # (Auto) 0.4 X10^3/uL (1.3-2.9) L 05/12/18 04:52 [place] # (Auto) 0.6 x10^3/uL (0.3-0.8) 05/12/18 04:52 Eos # (Auto) 0.0 x10^3/uL (0.0-0.2) 05/12/18 04:52 Baso # (Auto) 0.0 X10^3/uL (0.0-0.1) 05/12/18 04:52 Absolute Nucleated RBC 0.1 /100WBC 05/12/18 04:52 Total Counted 100 05/11/18 05:05 Neutrophils % (Manual) 73 % (39-76) 05/11/18 05:05 Band Neutrophils % 4 % (0-10) 05/11/18 05:05 Lymphocytes % (Manual) 10 % (13-43) L 05/11/18 05:05 Monocytes % (Manual) 11 % (4-9) H 05/11/18 05:05 Eosinophils % (Manual) 2 % (0-6) 05/11/18 05:05 Basophils % (Manual) Cancelled 05/02/18 17:40 Metamyelocytes % 3 05/07/18 04:52 Myelocytes % Cancelled 05/02/18 17:40 Promyelocytes % Cancelled 05/02/18 17:40 Nucleated RBCs Cancelled 05/02/18 17:40 Atypical Lymphocytes Cancelled 05/02/18 17:40 Blast Cells Cancelled 05/02/18 17:40 Smudge Cells Cancelled 05/02/18 17:40 Toxic Granulation Cancelled 05/02/18 17:40 Dohle Bodies Cancelled 05/02/18 17:40 Deepak Rods Cancelled 05/02/18 17:40 Plt Clumps, EDTA Cancelled 05/02/18 17:40 Giant Platelets Cancelled 05/02/18 17:40 Plt Morphology Comment Normal (NORMAL) 05/11/18 05:05 RBC Morphology Normal (NORMAL) 05/11/18 05:05 Dimorphic RBCs Cancelled 05/02/18 17:40 Polychromasia Cancelled 05/02/18 17:40 Hypochromasia Cancelled 05/02/18 17:40 Poikilocytosis Cancelled 05/02/18 17:40 Basophilic Stippling Cancelled 05/02/18 17:40 Anisocytosis Cancelled 05/02/18 17:40 Microcytosis Cancelled 05/02/18 17:40 Macrocytosis Cancelled 05/02/18 17:40 Spherocytes Cancelled 05/02/18 17:40 Pappenheimer Bodies Cancelled 05/02/18 17:40 Sickle Cells Cancelled 05/02/18 17:40 Target Cells Cancelled 05/02/18 17:40 Tear Drop Cells Cancelled 05/02/18 17:40 Ovalocytes Cancelled 05/02/18 17:40 Stomatocytes Cancelled 05/02/18 17:40 Helmet Cells Cancelled 05/02/18 17:40 Acevedo-Dillon Bodies Cancelled 05/02/18 17:40 Amanda Rings Cancelled 05/02/18 17:40 [place] Cells Cancelled 05/02/18 17:40 Crenated Cell Cancelled 05/02/18 17:40 Acanthocytes (Spur) Cancelled 05/02/18 17:40 Rouleaux Cancelled 05/02/18 17:40 Schistocytes Cancelled 05/02/18 17:40 Smear Path Review See note 05/02/18 17:40 D-Dimer 2480 ng/mL (0-400) H* 05/02/18 19:50 Sample Site Lbr 05/02/18 17:49 ABG pH 7.390 (7.35-7.45) 05/02/18 17:49 ABG pCO2 39.0 mmHg (35.0-45.0) 05/02/18 17:49 ABG pO2 94.0 mmHg (80.0-100.0) 05/02/18 17:49 ABG HCO3 23.6 mmol/L (22-26) 05/02/18 17:49 ABG O2 Saturation 97.0 % (90-100) 05/02/18 17:49 ABG Base Excess -1.2 mmol/L (-2.0-2.0) 05/02/18 17:49 Aries Test N/a 05/02/18 17:49 A-a Gradient 570.0 mmHg 05/02/18 17:49 FiO2 100 05/02/18 17:49 Blood Gas Comments Pt anne marie well cdn 05/02/18 17:49 Sodium 141 mmol/L (136-145) 05/12/18 05:00 Corrected Sodium 143 mmol/L (136-145) 05/12/18 05:00 Potassium 4.4 mmol/L (3.5-5.1) 05/12/18 05:00 Chloride 109 mmol/L (98-107) H 05/12/18 05:00 Carbon Dioxide 27.7 mmol/L (21-32) 05/12/18 05:00 BUN 9 mg/dL (7-18) 05/12/18 05:00 Creatinine 0.39 mg/dL (0.55-1.02) L 05/12/18 05:00 Est GFR (MDRD) Af Amer > 60 (>60) 05/12/18 05:00 Est GFR (MDRD) Non-Af > 60 (>60) 05/12/18 05:00 Glucose 163 mg/dL (65-99) H 05/12/18 05:00 POC Glucose (mg/dL) 135 mg/dL (65-99) H 05/12/18 11:37 Lactic Acid 2.6 mmol/L (0.4-2.0) H 05/04/18 06:10 Calcium 10.0 mg/dL (8.5-10.1) 05/12/18 05:00 Corrected Calcium 10.9 mg/dL (8.5-10.1) H 05/12/18 05:00 Ionized Calcium Josie 1.81 mmol/L (1.11-1.30) H* 05/08/18 10:20 Ionized Calcium pH 7.4 1.83 mmol/L (1.11-1.30) H* 05/08/18 10:20 Magnesium 2.4 mg/dL (1.7-2.9) 05/04/18 06:10 Total Bilirubin 1.60 mg/dL (0.2-1.0) H 05/12/18 05:00 AST 21 Units/L (15-37) 05/12/18 05:00 ALT 21 Units/L (12-78) 05/12/18 05:00 Alkaline Phosphatase 65 Units/L (46-116) 05/12/18 05:00 Ammonia 24 umol/L (11-32) 05/12/18 08:35 Creatine Kinase 21 Units/L (26-192) L 05/04/18 06:10 CK-MB (CK-2) < 1.0 ng/mL (0-4.0) 05/04/18 06:10 CK/CKMB % Calc 4.8 % (<4) 05/04/18 06:10 Troponin I 0.02 ng/mL (0-1.5) 05/04/18 06:10 B-Natriuretic Peptide 529 pg/mL (0-79) H* 05/02/18 19:50 Total Protein 5.2 g/dL (6.4-8.2) L 05/12/18 05:00 Total Protein (PEP) 5.40 g/dL (6.00-8.30) L 05/08/18 10:20 Albumin 2.9 g/dL (3.4-5.0) L 05/12/18 05:00 Albumin (PEP) 2.45 g/dL (3.75-5.01) L 05/08/18 10:20 Globulin 2.3 g/dL (2.5-4.5) L 05/12/18 05:00 Albumin/Globulin Ratio 1.3 Ratio (1.1-2.1) 05/12/18 05:00 Gbtgl-9-Hwgbhrfiy 0.41 g/dL (0.19-0.46) 05/08/18 10:20 Vmxzx-7-Ixdqamulc 0.89 g/dL (0.48-1.05) 05/08/18 10:20 Beta Globulins 0.93 g/dL (0.48-1.10) 05/08/18 10:20 Gamma Globulins 0.73 g/dL (0.62-1.51) 05/08/18 10:20 PEP Interpretation See note 05/08/18 10:20 Free T4 0.91 ng/dL (0.76-1.46) 05/10/18 09:46 TSH 3rd Generation 2.568 uIU/mL (0.358-3.74) 05/10/18 09:46 PTH Intact 19 pg/mL (15-65) 05/08/18 10:20 Calcium (PTH Intact) 11.1 mg/dL 05/08/18 10:20 Specimen Type Catherized urine 05/02/18 19:45 Urine Color Ivana (YELLOW) 05/02/18 19:45 Urine Appearance Hazy (CLEAR) 05/02/18 19:45 Urine pH 6.0 (5.0 - 8.0) 05/02/18 19:45 Ur Specific [place] 1.020 (1.000-1.030) 05/02/18 19:45 Urine Protein 2+ (NEGATIVE) 05/02/18 19:45 Urine Glucose (UA) Negative (NEGATIVE) 05/02/18 19:45 Urine Ketones 1+ (NEGATIVE) 05/02/18 19:45 Urine Occult Blood 1+ (NEGATIVE) 05/02/18 19:45 Urine Nitrite Positive (NEGATIVE) 05/02/18 19:45 Urine Bilirubin 2+ (NEGATIVE) 05/02/18 19:45 Urine Urobilinogen 2+ (NORMAL) 05/02/18 19:45 Ur Leukocyte Esterase 1+ (NEGATIVE) 05/02/18 19:45 Urine RBC 3-5 /HPF (NONE SEEN) 05/02/18 19:45 Urine WBC 5-10 /HPF (NONE SEEN) 05/02/18 19:45 Ur Squamous Epith Cells Few /HPF (NEGATIVE) 05/02/18 19:45 Urine Bacteria 2+ /HPF (NEGATIVE) 05/02/18 19:45 Urine Mucus Few /HPF (NEGATIVE) 05/02/18 19:45 Ur Culture Indicated? Yes/culture set up 05/02/18 19:45 Urine Total Volume Random mL 05/08/18 14:20 Urine Total Protein See note mg/dL (10-140) 05/08/18 14:20 Urine Albumin (PEP) Detected (Detected) 05/08/18 14:20 U Vgcfo-7-Krrexfyd None detected (None Detected) 05/08/18 14:20 U Jsoya-8-Roneyrui None detected (None Detected) 05/08/18 14:20 U Beta Globulin Detected (None Detected) 05/08/18 14:20 U Gamma Globulin Detected (None Detected) 05/08/18 14:20 U Free Currie Light Ch 1.21 mg/dL (0.14-2.42) 05/08/18 14:20 U Free Currie Excretion See note mg/d 05/08/18 14:20 U Free Lambda Light Ch 0.08 mg/dL (0.02-0.67) 05/08/18 14:20 Free Lambda Excret 24 See note mg/d 05/08/18 14:20 U Free Currie/Lambda 24 15.13 RATIO (2.04-10.37) H 05/08/18 14:20 CARLOS & SPEP Interp See note 05/08/18 14:20 TSH Receptor Antibody Cancelled 05/10/18 09:46 - Plan (1) Multifocal pneumonia Status: Acute Plan: LEVAQUIN 750MG IV DAILY, ROCEPHIN 1GM IV DAILY, RESPIRATORY TREATMENTS, SUPPLEMENTAL OXYGEN, CONTINUE TO MONITOR. HER CONDITION IS GETTING WORSE. (2) COPD (chronic obstructive pulmonary disease) Status: Acute Qualifiers: COPD type: COPD with acute exacerbation Qualified Code(s): J44.1 - Chronic obstructive pulmonary disease with (acute) exacerbation Plan: RESPIRATORY TREATMENTS, SUPPLEMENTAL OXYGEN, IV ANTIBIOTICS, CONTINUE TO MONITOR (3) Streptococcus pneumoniae infection Status: Acute Plan: CONTINUE IV ANTIBIOTICS, CONTINUE TO MONITOR (4) E coli infection Status: Acute Plan: CONTINUE IV ANTIBIOTICS, CONTINUE TO MONITOR (5) Abdominal pain Status: Acute Qualifiers: Abdominal location: epigastric Qualified Code(s): R10.13 - Epigastric pain Plan: CONTINUE TO MONITOR (6) Oral candidiasis Status: Acute Plan: MAGIC MOUTHWASH QID, DIFLUCAN 200MG IV DAILY, CONTINUE TO MONITOR (7) Cirrhosis Status: Chronic Qualifiers: Hepatic cirrhosis type: unspecified hepatic cirrhosis Ascites presence: with ascites Qualified Code(s): K74.60 - Unspecified cirrhosis of liver; R18.8 - Other ascites Plan: CONTINUE HOME MEDS, CONTINUE TO MONITOR (8) Hepatitis Status: Chronic Plan: CONTINUE HOME MEDS, CONTINUE TO MONITOR
--- NOTE | 2018-06-15 22:41 | DR.CARTERD ---
- Discharge Summary for: Discharge Summary for Date of:: 05/12/18 - Admission Date Date of Admission: 05/02/18 - Admission Diagnoses Admission Diagnosis: (1) Multifocal pneumonia (2) COPD (chronic obstructive pulmonary disease) (3) Abdominal pain (4) Hypokalemia - Discharge Date Discharge Date: 05/12/18 - Discharge Diagnoses Discharge Diagnosis: (1) Multifocal pneumonia (2) COPD (chronic obstructive pulmonary disease) (3) Streptococcus pneumoniae infection (4) E coli infection (5) Abdominal pain (6) Oral candidiasis (7) Cirrhosis (8) Hepatitis - Hospital Course Hospital Course: DAY ONE, MS. AUSTIN IS A 63 YEAR OLD PATIENT OF OURS WHO PRESENTED TO THE EMERGENCY ROOM WITH COMPLAINTS OF GENERALIZED ACHING, ABDOMINAL PAIN, AND SHORTNESS OF BREATH FOR THE PAST THREE DAYS. SHE HAS A MEDICAL HISTORY OF ANEMIA, ARTHRITIS, ASTHMA, CIRRHOSIS, HEPATITIS, LIVER FAILURE, COPD, AND GERD. ON ARRIVAL, VITLAS WERE 98.9-223-91-84-126/68. SHE WAS PALCED ON A NON- REBREATHER. OXYGEN SATURATIONS INCREASED TO THE LOW 90S. LABS WERE OBTAINED. ABNORMAL LAB VALUES INCLUDED THE FOLLOWING: WBC 0.9, PLT COUNT 90, D-DIMER 2480, SODIUM 133, POTASSIUM 3.3, LACTIC ACID 3.3, TOTAL BILIRUBIN 5.20, AST 39, BNP 529, TOTAL PROTEIN 5.8, ALBUMIN 2.5. URINALYSIS REVEALED WBC 5-10, RBC 3-5, BACTERIA 2+, LEUKOCYTES 1+, NITRITE POSITIVE, PROTEIN 2+. BLOOD AND URINE CULTURES PENDING. A CHEST XRAY WAS OBTAINED AND REVEALED: MILD CARDIOMEGALY, UNCHANGED. CHRONIC INTERSTITIAL SCARRING AT THE LUNG BASES. NO ACUTE SUPERIMPOSED ABNORMALITY SEEN. A CHEST CT WAS OBTAINED DUE TO ELEVATED D-DIMER AND REVEALED: Motion limited exam without evidence for central or large segmental PTE. Dense airspace consolidation with associated air bronchograms of the bilateral lower lobes, most compatible with multilobar pneumonia. Prominence of the central pulmonary arteries, suggestive for underlying pulmonary arterial hypertension. Cardiomegaly, mild coronary atherosclerotic disease, evidence of cirrhosis with portal venous hypertension and additional findings. EKG REVEALED: SINUS TACHYCARDIA WITH HR 114. SHE WAS GIVEN A NORMAL SALINE BOLUS IN THE ER WELL ROCEPHIN 1GM IV, ZOFRAN 4MG IV X 1, MORPHINE 2MG IV X 1, AND A DUONEB TREATMENT. SHE WAS ADMITTED TO THE HOSPITAL FOR COPD EXACERBATION AND MULTIFOCAL PNEUMONIA. SHE WAS STARTED ON LEVAQUIN 750MG IV DAILY, AND IV FLUIDS WELL POTASSIUM REPLACEMENT PER PROTOCOL. WE FOLLOWED-UP WITH AM LABS AND CONTINUED TO MONITOR PATIENT. DAY THREE, SHE REMAINED IN THE INTENSIVE CARE UNIT THIS MORNING. SHE WAS ALERT AND ORIENTED, LYING IN BED ON MORNING ROUNDS. SHE CONTINUED TO UTILIZE THE BIPAP AND CONTINUED ON A LEVOPHED DRIP. SHE CONTINUED WITH COMPLAINTS OF SHORTNESS OF BREATH, ABDOMINAL PAIN, AND MOUTH PAIN THIS MORNING. ON EXAMINATION, THERE WERE WHITE PATCHES NOTED TO ORAL CAVITY. HEART WAS REGULAR IN RATE AND RHYTHM. BILATERAL LUNGS WERE NOTED WITH SCATTERED WHEEZING AND RHONCHI. ABDOMEN WAS DISTENDED AND NOTED WITH DIFFUSE TENDERNESS TO PALPATION. SHE WAS NOTED WITH TRACE EDEMA TO HER LOWER EXTREMITIES. HER VITALS THIS MORNING WERE 98.0-99-31-100%-94/59. LABS WERE OBTAINED. ABNORMAL LAB VALUES INCLUDED THE FOLLOWING: WBC 1.8, PLT COUNT 78, SODIUM 135, LACTIC ACID 2.6, TOTAL BILI 4.90, CREATINE KINASE 21, TOTAL PROTEIN 5.6, ALBUMIN 2.1. URINE CULTURE AND BLOOD CULTURES WERE PENDING. SHE WAS CURRENTLY RECEIVING LEVAQUIN AND FORTAZ IV WELL RESPIRATORY TREATMENTS AND LEVOPHED. AN ECHO WAS OBTAINED YESTERDAY AND REVEALED AN EJECTION FRACTION OF 67%. AN ABDOMEN/PELVIS CT WITHOUT CONTRAST REVEALED: Limited noncontrast study, without evidence for acute intra-abdominal abnormality. Cirrhosis with large perisplenic varices. Small volume pelvic ascites. Bibasilar pneumonia. WE ADMINISTERED A NEUPOGEN INJECTION AND STARTED DIFLUCAN 200MG IV DAILY AND MAGIC MOUTHWASH QID. WE FOLLOWED UP WITH AM LABS AND CONTINUED TO MONITOR PATIENT. DAY FIVE, SHE REMAINED IN THE INTENSIVE CARE UNIT. SHE WAS ALERT AND ORIENTED AND WEAK. SHE HURT ALL OVER. SHE WAS UTILIZING THE BIPAP. SHE WAS WEAK AND EATING POORLY. URINE CULTURE GREW E COLI AND BLOOD CULTURE GREW STREP PNEUMONIA. LUNGS HAD SCATTERED WHEEZING AND RHONCHI. ABDOMEN NOTED TO HAVE DIFFUSE TENDERNESS ON PALPATION. TRACE EDEMA TO HER LOWER EXTREMITIES. HER BLOOD PRESSURE WAS LOW THIS AM AND WAS SLIGHTLY SLEEPY. ABNORMAL LAB REVIEWED. SHE RECEIVED ROCEPHIN AND LEVAQUIN WELL RESPIRATORY TREATMENTS. WE CONTINUED WITH CURRENT PLAN OF CARE. WE CONTINUED WITH FORTAZ 1GM IV Q8H LEVAQUIN, AND AM LABS. WE CONTINUED TO MONITOR PATIENT. DAY SEVEN, SHE REMAINED IN THE INTENSIVE CARE UNIT THIS MORNING. SHE WAS LETHARGIC, LYING IN BED WITH EYES CLOSED ON MORNING ROUNDS. SHE AWAKENED TO VERBAL STIMULI, BUT CONTINUED TO BE WEAK AND DROWSY. SHE CONTINUED WITH COMPLAINTS OF SHORTNESS OF BREATH AND WEAKNESS. ON EXAMINATION, HEART WAS REGULAR IN RATE AND RHYTHM. BILATERAL LUNGS WERE NOTED WITH SCATTERED WHEEZING AND RHONCHI. ABDOMEN WAS DISTENDED AND NOTED WITH DIFFUSE TENDERNESS TO PALPATION. SHE WAS NOTED WITH TRACE EDEMA TO HER LOWER EXTREMITIES. HER VITALS THIS MORNING WERE 98.4-74-20-98%-96/52. LABS WERE OBTAINED. ABNORMAL LAB VALUES INCLUDED THE FOLLOWING: PLT COUNT 60, BUN 22, CALCIUM 11.1, CORRECTED CALCIUM 13.0, TOTAL BILI 2.40, TOTAL PROTEIN 4.9, ALBUMIN 1.6. URINE CULTURE AND SPUTUM CULTURES REPORT GROWTH OF E.COLI. BLOOD CULTURES REPORT GROWTH OF STREPTOCOCCUS PNEUMONIAE. A CHEST XRAY WAS OBTAINED AND REVEALED: Mild cardiomegaly without congestive heart failure. Right basilar subsegmental atelectasis. Mild hyperinflation with mild interstitial lung changes. Small bilateral pleural effusions. SHE RECEIVED LEVAQUIN AND FORTAZ IV WELL RESPIRATORY TREATMENTS AND LEVOPHED. WE OBTAINED AN IONIZED CALCIUM LEVEL, SERUM INTACT PTH, SPEP LEVELS, UPEP LEVELS, AND ORDER A 3 PHASE BONE SCAN. WE STARTED ALBUMIN 25% IV DAILY AND CHANGED IV FLUIDS TO D5NS AT 50ML/HR. WE FOLLOWED UP WITH AM LABS AND CONTINUED TO MONITOR PATIENT. DAY NINE, SHE WAS ALERT AND ORIENTED, LYING IN BED ON MORNING ROUNDS. SHE REPORTED FEELING MUCH BETTER THAN THE PAST SEVERAL DAYS AND WAS MUCH MORE ALERT TODAY. SHE CONTINUED WITH COMPLAINTS OF SHORTNESS OF BREATH, COUGH, AND WEAKNESS. ON EXAMINATION, HEART WAS REGULAR IN RATE AND RHYTHM. BILATERAL LUNGS WERE NOTED WITH SCATTERED WHEEZING AND RHONCHI. ABDOMEN WAS DISTENDED AND NOTED WITH DIFFUSE TENDERNESS TO PALPATION. SHE WAS NOTED WITH TRACE EDEMA TO HER LOWER EXTREMITIES. HER VITALS THIS MORNING ARE 98.3-69-38 -99%-117/98. LABS WERE OBTAINED. ABNORMAL LAB VALUES INCLUDED THE FOLLOWING: HGB 11.2, HGB 34.6, PLT COUNT 31, CHLORIDE 112, CREATININE 0.39, GLUCOSE 122, CALCIUM 10.7, TOTAL BILI 2.00, TOTAL PROTEIN 4.9, ALBUMIN 2.4. URINE CULTURE AND SPUTUM CULTURES REPORT GROWTH OF E.COLI. BLOOD CULTURES REPORT GROWTH OF STREPTOCOCCUS PNEUMONIAE. A CHEST XRAY WAS OBTAINED AND REVEALED: Mild cardiomegaly without congestive heart failure. Interstitial lung changes, stable. Subsegmental atelectasis right lung base, stable. Suspect small bilateral pleural effusions also stable. SHE WAS RECEIVING LEVAQUIN AND FORTAZ IV WELL RESPIRATORY TREATMENTS AND LEVOPHED. WE OBTAINED A TSH LEVEL AND AMMONIA LEVEL AND CONTINUED WITH CURRENT PLAN OF CARE. WE WILL FOLLOW UP WITH AM LABS AND CONTINUE TO MONITOR PATIENT. DAY ELEVEN, PATIENT CONTINUED TO COMPLAIN OF SHORTNESS OF BREATH, COUGH, AND WEAKNESS. SCATTERED WHEEZING AND RHONCHI WERE NOTED TO BILATERAL LUNGS ON AUSCULTATION. TRACE EDEMA WAS NOTED TO LOWER E XTREMITIES. WE DISCUSSED ADMITTING TO SWING-BED FOR FURTHER TREATMENT AND CARE OF SYMPTOMS WITH PATIENT AND FAMILY, BOTH VOICED UNDERSTANDING AND WERE IN AGREEMENT WITH SWING BED PLAN. WE PLANNED FOR DISCHARGE FROM IN-PATIENT. PATIENT WAS DISCHARGED AND ADMITTED BACK A SWING-BED. WE CONTINUED CURRENT TREATMENT. PHYSICAL THERAPY AND OCCUPATIONAL THERAPY EVALUATED PATIENT AND CONTINUED TO TREAT PATIENT. - Discharge Medications Discharge Medications: Prescriptions: Ambulatory Orders allopurinol 300 mg PO DAILY 10/16/15 gabapentin 600 mg PO HS 10/16/15 hydroxyzine HCl 50 mg PO HS PRN 10/16/15 cyproheptadine 4 mg PO BID 03/09/17 spironolacton-hydrochlorothiaz 25 mg PO DAILY 03/09/17 ergocalciferol (vitamin D2) 50,000 units PO Q48H 12/01/17 escitalopram oxalate 20 mg PO HS 12/01/17 furosemide 40 mg PO DAILY 12/01/17 meclizine 25 mg PO TID 12/01/17 potassium chloride 20 meq PO DAILY 12/01/17 omeprazole 40 mg PO QDAY PRN #16 cap 02/05/18 promethazine 50 mg PO Q6H PRN #18 tab 02/05/18 lansoprazole 30 mg PO HS 02/25/18 albuterol sulfate [ProAir HFA] 2 puff INHALATION Q4-6H PRN #1 g 02/26/18 Blood Glucose Check [Otbs (One-Touch Blood Sugar)] 1 ea XX ACHS 05/17/18 cefdinir 300 mg PO Q12HR #20 cap 05/17/18 dextromethorphan-guaifenesin [Cough Suppressant-Expectorant] 10 ml PO Q6HR PRN ml 05/17/18 docusate sodium 200 mg PO HS cap 05/17/18 fluconazole 100 mg PO DAILY tab 05/17/18 lactulose 15 ml PO TID ml 05/17/18 lanolin [Lantiseptic Skin Protectant] 1 applic TOP PRN PRN g 05/17/18 levalbuterol HCl 1.25 mg NEB QIDRESP ml 05/17/18 lidocaine HCl [Lidocaine Viscous] 5 ml MT QID ml 05/17/18 magnesium hydroxide [Milk of Magnesia] 30 ml PO BID PRN ml 05/17/18 tapentadol [Nucynta ER] 200 mg PO BID #60 tab 05/17/18 - Discharge Disposition Discharge Disposition: WE WILL CONTINUE TO ADMINISTER CARE AND FOLLOW UO WITH PATIENT UNDER SWING BED STATUS IN THE HOSPITAL.
== END 2018-05-12 13:00 | disposition swing bed (61) | DRG 177 ==
LOC: ER 15:39 → ICU 18:57 → MED/SURG 05-12 09:43
PROVIDERS: ADMIT Internal Medicine; ATTEND Internal Medicine
DX: J44.1 Chronic obstructive pulmonary disease with (acute) exacerbation; K73.8 Other chronic hepatitis, not elsewhere classified; K74.69 Other cirrhosis of liver; R06.02 Shortness of breath; B37.0 Candidal stomatitis; R41.82 Altered mental status, unspecified; I51.7 Cardiomegaly; A40.3 Sepsis due to Streptococcus pneumoniae; R18.8 Other ascites; E87.6 Hypokalemia; K21.9 Gastro-esophageal reflux disease without esophagitis; R10.13 Epigastric pain; J90 Pleural effusion, not elsewhere classified; R60.1 Generalized edema; R53.1 Weakness; J15.5 Pneumonia due to Escherichia coli; N39.0 Urinary tract infection, site not specified; R10.84 Generalized abdominal pain; I95.89 Other hypotension
CPT/HCPCS: 36415; 36600; 51702; 71010; 71045; 71275; 74176; 78306; 80053; 81001; 82140; 82330; 82550; 82553; 82803; 83605; 83735; 83880; 83970; 84132; 84165; 84166; 84439; 84443; 84484; 85025; 85060; 85378; 86335; 87040; 87070; 87077; 87086; 87088; 87186; 87205; 92526; 92610; 93005; 93306; 94640; 94660; 96365; 96374; 96375; 97110; 97163; 97167; 97530; 97535; 99231; 99283; 99285; A4222; A4618; A7030; P9047; A9503; J0696; J0713; J1442; J1450; J1885; J1956; J2270; J2405; J2765; J3475; J3480; J7030; J7042; J7050; J7060; J7620

== ENCOUNTER 2018-05-12 13:00 | Inpatient (IN) ==
[2018-05-12] MEDS ORDERED: LANTISEPTIC TOP PRN (14:43)
[2018-05-12] MEDS ORDERED: ANTIVERT TAB 25 MG PO PRN (14:43)
[2018-05-12] MEDS ORDERED: ATARAX TAB 25 MG PO PRN (14:43)
[2018-05-12] MEDS ORDERED: NORCO 7.5/325 MG TAB PO PRN (15:05)
[2018-05-12] MEDS: MORPHINE SULFATE INJ 2 MG INJ IVP PRN ×2 (15:41→21:30)
[2018-05-12] MEDS: ROBITUSSIN DM PO SCH ×2 (15:44→21:00)
[2018-05-12] MEDS: XOPENEX 1.25 MG/3 ML NEBULE NEB SCH ×2 (16:48→20:11)
[2018-05-12] MEDS: MAGIC MOUTHWASH MT SCH ×2 (17:00→21:00)
[2018-05-12] MEDS ORDERED: LEXAPRO ONE (20:51)
[2018-05-12] MEDS: MILK OF MAGNESIA PO SCH (21:00)
[2018-05-12] MEDS: NEURONTIN TAB 600 MG PO SCH (21:10)
[2018-05-12] MEDS: COLACE CAP 100 MG PO SCH (21:11)
[2018-05-12] MEDS: PREVACID PO SCH (21:11)
[2018-05-12] MEDS: CHRONULAC PO SCH (21:11)
[2018-05-12] MEDS: PERIACTIN TAB 4 MG PO SCH (21:11)
[2018-05-12] MEDS: LEXAPRO PO SCH (21:11)
[2018-05-12] MEDS: FORTAZ or TAZICEF VIAL INJ IVP SCH (22:59)
[2018-05-12] MEDS: PATIENT'S HOME MEDICATION PO SCH (22:59)
[2018-05-13] MEDS: ROBITUSSIN DM PO SCH ×5 (02:59→23:15)
[2018-05-13] MEDS: CHRONULAC PO SCH ×3 (06:03→23:15)
[2018-05-13] MEDS: FORTAZ or TAZICEF VIAL INJ IVP SCH ×3 (06:03→23:00)
[2018-05-13 07:08] VITALS: BMI 29.5
[2018-05-13] MEDS ORDERED: NS 250 ML IV 250 ML IV ONE (08:23)
[2018-05-13] MEDS: MAGIC MOUTHWASH MT SCH ×5 (08:30→23:16)
[2018-05-13] MEDS: XOPENEX 1.25 MG/3 ML NEBULE NEB SCH ×4 (08:57→20:30)
[2018-05-13] MEDS: MILK OF MAGNESIA PO SCH ×3 (08:59→23:17)
[2018-05-13] MEDS: K-DUR TAB 20 MEQ PO SCH (08:59)
[2018-05-13] MEDS: ZYLOPRIM PO SCH (09:00)
[2018-05-13] MEDS: ALDACTONE TAB 25 MG PO SCH (09:00)
[2018-05-13] MEDS: PERIACTIN TAB 4 MG PO SCH ×3 (09:00→23:17)
[2018-05-13] MEDS: HYDROCHLOROTHIAZIDE 25 MG TAB PO SCH (09:00)
[2018-05-13] MEDS: ALBUMIN HUMAN 25%- 100 ML 100 ML IV SCH (09:07)
[2018-05-13] MEDS: PATIENT'S HOME MEDICATION PO SCH ×2 (10:26→23:15)
[2018-05-13] MEDS: DIFLUCAN 200 MG IV PREMIX* 200 MG/100 ML BAG IV SCH (10:27)
[2018-05-13] MEDS ORDERED: LEXAPRO ONE (19:56)
[2018-05-13] MEDS: PREVACID PO SCH (20:25)
[2018-05-13] MEDS: COLACE CAP 100 MG PO SCH ×2 (20:25→23:17)
[2018-05-13] MEDS: LEXAPRO PO SCH ×2 (20:26→23:17)
[2018-05-13] MEDS: NEURONTIN TAB 600 MG PO SCH (23:14)
[2018-05-14] MEDS: MORPHINE SULFATE INJ 2 MG INJ IVP PRN (01:25)
[2018-05-14] MEDS: ROBITUSSIN DM PO SCH ×4 (03:56→20:18)
[2018-05-14] MEDS: CHRONULAC PO SCH ×3 (06:00→21:01)
[2018-05-14] MEDS: FORTAZ or TAZICEF VIAL INJ IVP SCH ×3 (06:01→21:01)
[2018-05-14] MEDS: MAGIC MOUTHWASH MT SCH ×4 (08:38→20:24)
[2018-05-14] MEDS: ZYLOPRIM PO SCH (08:39)
[2018-05-14] MEDS: PERIACTIN TAB 4 MG PO SCH ×2 (08:39→20:14)
[2018-05-14] MEDS: K-DUR TAB 20 MEQ PO SCH (08:39)
[2018-05-14] MEDS: ALDACTONE TAB 25 MG PO SCH (08:39)
[2018-05-14] MEDS: HYDROCHLOROTHIAZIDE 25 MG TAB PO SCH (08:40)
[2018-05-14] MEDS: ALBUMIN HUMAN 25%- 100 ML 100 ML IV SCH (08:40)
[2018-05-14] MEDS: MILK OF MAGNESIA PO SCH ×2 (08:40→20:24)
[2018-05-14] MEDS: PATIENT'S HOME MEDICATION PO SCH ×2 (08:40→20:19)
[2018-05-14] MEDS: VITAMIN D (1.25MG) PO SCH (08:47)
[2018-05-14] MEDS: XOPENEX 1.25 MG/3 ML NEBULE NEB SCH ×4 (08:56→20:58)
[2018-05-14] MEDS: DIFLUCAN 200 MG IV PREMIX* 200 MG/100 ML BAG IV SCH (08:58)
[2018-05-14] MEDS ORDERED: LEXAPRO ONE (20:07)
[2018-05-14] MEDS: NEURONTIN TAB 600 MG PO SCH (20:14)
[2018-05-14] MEDS: PREVACID PO SCH (20:15)
[2018-05-14] MEDS: COLACE CAP 100 MG PO SCH (20:20)
[2018-05-14] MEDS: LEXAPRO PO SCH (20:20)
[2018-05-15] MEDS: ROBITUSSIN DM PO SCH ×4 (03:44→20:58)
[2018-05-15 05:38] LABS: BASOPHILS # (AUTO) 0.1 X10^3/uL (0.0-0.1); BASOPHILS % (AUTO) 1.2 % (0.2-1.0); EOSINOPHILS % (AUTO) 0.8 % (0.9-2.9); HEMATOCRIT 30.6 % (36.0-47.0); HEMOGLOBIN 10.1 g/dL (12.0-16.0); LYMPHOCYTES # (AUTO) 0.6 X10^3/uL (1.3-2.9); LYMPHOCYTES % (AUTO) 11.9 % (21.0-51.0); MEAN CORPUSCULAR HEMOGLOBIN 30.7 pg (27.0-34.0); MONOCYTES # (AUTO) 0.7 x10^3/uL (0.3-0.8); MONOCYTES % (AUTO) 16.1 % (0.0-13.0); NEUTROPHILS # (AUTO) 3.3 x10^3/uL (2.2-4.8); PLATELET COUNT 117 X10^3/uL (150.0-450.0); WHITE BLOOD COUNT 4.7 X10^3/uL (3.6-10.0)
[2018-05-15 05:47] LABS: ALANINE AMINOTRANSFERASE 23 Units/L (12-78); ALBUMIN 3.3 g/dL (3.4-5.0); ALKALINE PHOSPHATASE 60 Units/L (46-116); ASPARTATE AMINO TRANSFERASE 19 Units/L (15-37); BLOOD UREA NITROGEN 7 mg/dL (7-18); CALCIUM 10.9 mg/dL (8.5-10.1); CHLORIDE 107 mmol/L (98-107); COR CA(FOR HYPOALB) 11.5 mg/dL (8.5-10.1); CREATININE 0.28 mg/dL (0.55-1.02); SODIUM 144 mmol/L (136-145); TOTAL PROTEIN 5.4 g/dL (6.4-8.2); eGFR NON BLACK RACES > 60 (>60)
[2018-05-15] MEDS: CHRONULAC PO SCH ×3 (05:47→21:08)
[2018-05-15] MEDS: FORTAZ or TAZICEF VIAL INJ IVP SCH ×3 (05:47→21:09)
--- NOTE | 2018-05-15 06:27 | RAD ---
HISTORY: Shortness of breath Study: Chest AP portable Comparison: 05/11/2018 Findings: The heart remains enlarged. There has been interval development of increasing diffuse interstitial prominence suggestive of interval development of some interstitial edema superimposed on the patient's chronic lung changes. No alveolar edema is identified. No alveolar infiltrates are identified. No pleural effusions are present. The bony thorax is unremarkable. identified. IMPRESSION: Continued cardiomegaly but now with increasing interstitial changes which may indicate some interstitial edema superimposed on the patient's chronic interstitial lung disease Reported By:
[2018-05-15] MEDS: K-DUR TAB 20 MEQ PO SCH (08:31)
[2018-05-15] MEDS: ALBUMIN HUMAN 25%- 100 ML 100 ML IV SCH (08:31)
[2018-05-15] MEDS: HYDROCHLOROTHIAZIDE 25 MG TAB PO SCH (08:31)
[2018-05-15] MEDS: PERIACTIN TAB 4 MG PO SCH ×2 (08:32→20:59)
[2018-05-15] MEDS: ZYLOPRIM PO SCH (08:32)
[2018-05-15] MEDS: MAGIC MOUTHWASH MT SCH ×4 (08:32→21:16)
[2018-05-15] MEDS: ALDACTONE TAB 25 MG PO SCH (08:35)
[2018-05-15] MEDS: MILK OF MAGNESIA PO SCH ×3 (08:36→21:24)
[2018-05-15] MEDS: PATIENT'S HOME MEDICATION PO SCH ×2 (08:36→21:05)
[2018-05-15] MEDS: XOPENEX 1.25 MG/3 ML NEBULE NEB SCH ×4 (09:21→20:10)
[2018-05-15] MEDS: DIFLUCAN 200 MG IV PREMIX* 200 MG/100 ML BAG IV SCH (10:12)
[2018-05-15] MEDS: NORCO 5/325 MG TAB PO PRN ×2 (12:03→20:58)
[2018-05-15] MEDS ORDERED: LEXAPRO ONE (19:56)
--- NOTE | 2018-05-15 20:00 | PCM.PROG ---
Progress Note - Progress Note for Day of Date of Exam: 05/15/18 - Subjective Subjective: IS CURRENTLY SWINGBED STATUS FOR BACTEREMIA FOR WHICH SHE IS RECEIVING IV ANTIBIOTICS. SHE IS ALSO RECEIVING PHYSICAL THERAPY. TODAY, SHE IS ALERT AND ORIENTED, LYING IN BED ON MORNING ROUNDS. SHE IS NOTED WITH A NON- PRODUCTIVE COUGH. SHE REPORTS SHORTNESS OF BREATH AT TIMES. ON EXAM, HEART IS REGULAR IN RATE AND RHYTHM. BILATERAL LUNGS ARE NOTED WITH DIMINISHED LUNG SOUNDS THROUGHOUT. ABDOMEN IS ROUND, SOFT, AND NON-TENDER WITH NORMAL BOWEL SOUNDS NOTED IN ALL QUADRANTS. HER VITALS THIS MORNING ARE 98.5-73-20-92%NC-148/85. LABS WERE OBTAINED. ABNORMAL LAB VALUES INCLUDE THE F OLLOWING: RBC 3.30, HGB 10.1, HCT 30.6, CREATININE 0.28, CALCIUM 10.9, TOTAL BILI 1.50, TOTAL PROTEIN 5.4, ALBUMIN 3.3. A CHEST XRAY WAS OBTAINED AND REVEALED: Continued cardiomegaly but now with increasing interstitial changes which may indicate some interstitial edema superimposed on the patient's chronic interstitial lung disease. SHE IS CURRENTLY RECEIVING FORTAZ 1GM IV Q8H, IV DIFLUCAN, AND RESPIRATORY TREATMENTS. WE WILL CONTINUE WITH CURRENT PLAN OF CARE TODAY. OTHERWISE, WE WILL FOLLOW UP WITH AM LABS AND CONTINUE TO MONITOR. - Past Medical Family Social History Past Med/Fam/Surg Hx: No changes since H&P Allergies: Allergies aspirin Allergy (Verified 12/21/17 10:04) ibuprofen Allergy (Verified 12/21/17 10:04) - Review of Systems ROS: No change since H&P - Vital Signs and I&O's Vital Signs: Temperature 98.5 F Pulse Rate [Left Brachial] 81 Pulse Rate [Right Brachial] 73 Pulse Rate 89 Respiratory Rate 20 Blood Pressure [Right Arm] 148/85 Blood Pressure [Left Arm] 117/57 Blood Pressure 130/62 O2 Sat by Pulse Oximetry 91 Intake and Output: Intake & Output 05/13/18 05/14/18 05/15/18 05/16/18 11:59 11:59 11:59 11:59 Intake Total 1310 / 1310 480 / 480 1460 / 1460 588 / 588 Output Total 1350 / 1350 3500 / 3500 2175 / 2175 1100 / 1100 Balance -40 / -40 -3020 / -3020 -715 / -715 -512 / -512 - Physical Exam Oriented: Normal Eyes: Normal Ear: Normal Nose: Normal Throat: Normal Respiratory: Generalized, Diminished Cardiovascular: Normal. negative: S3, S4, Murmur : Normal Auscultation: Bowel Sounds: Normal Palpation: Normal Tenderness: Normal Skin: Normal Musculoskeletal: Normal Psychiatric: Normal Mood Description: Calm Affect: Normal Speech Pattern: Clear, Appropriate - Laboratory and Diagnostics Result Diagrams: 05/17/18 11:25 05/17/18 11:25 Labs: Laboratory WBC 4.7 X10^3/uL (3.6-10.0) 05/15/18 04:57 RBC 3.30 X10^6/uL (3.5-5.4) L 05/15/18 04:57 Hgb 10.1 g/dL (12.0-16.0) L 05/15/18 04:57 Hct 30.6 % (36.0-47.0) L 05/15/18 04:57 MCV 93.0 fL (80.0-100.0) 05/15/18 04:57 MCH 30.7 pg (27.0-34.0) 05/15/18 04:57 MCHC 33.0 g/dL (33.0-35.0) 05/15/18 04:57 RDW 18.0 % (11.6-16.5) H 05/15/18 04:57 Plt Count 117 X10^3/uL (150.0-450.0) L 05/15/18 04:57 MPV 9.0 fL (7.4-11.0) 05/15/18 04:57 Neut % (Auto) 70.0 % (42.0-75.0) 05/15/18 04:57 Lymph % (Auto) 11.9 % (21.0-51.0) L 05/15/18 04:57 [place] % (Auto) 16.1 % (0.0-13.0) H 05/15/18 04:57 Eos % (Auto) 0.8 % (0.9-2.9) L 05/15/18 04:57 Baso % (Auto) 1.2 % (0.2-1.0) H 05/15/18 04:57 Neut # (Auto) 3.3 x10^3/uL (2.2-4.8) 05/15/18 04:57 Lymph # (Auto) 0.6 X10^3/uL (1.3-2.9) L 05/15/18 04:57 [place] # (Auto) 0.7 x10^3/uL (0.3-0.8) 05/15/18 04:57 Eos # (Auto) 0.0 x10^3/uL (0.0-0.2) 05/15/18 04:57 Baso # (Auto) 0.1 X10^3/uL (0.0-0.1) 05/15/18 04:57 Absolute Nucleated RBC 0.1 /100WBC 05/15/18 04:57 Sodium 144 mmol/L (136-145) 05/15/18 04:57 Corrected Sodium TNP 05/15/18 04:57 Potassium 4.0 mmol/L (3.5-5.1) 05/15/18 04:57 Chloride 107 mmol/L (98-107) 05/15/18 04:57 Carbon Dioxide 32.0 mmol/L (21-32) 05/15/18 04:57 BUN 7 mg/dL (7-18) 05/15/18 04:57 Creatinine 0.28 mg/dL (0.55-1.02) L 05/15/18 04:57 Est GFR (MDRD) Af Amer > 60 (>60) 05/15/18 04:57 Est GFR (MDRD) Non-Af > 60 (>60) 05/15/18 04:57 Glucose 85 mg/dL (65-99) 05/15/18 04:57 POC Glucose (mg/dL) 79 mg/dL (65-99) 05/15/18 16:21 Calcium 10.9 mg/dL (8.5-10.1) H 05/15/18 04:57 Corrected Calcium 11.5 mg/dL (8.5-10.1) H 05/15/18 04:57 Total Bilirubin 1.50 mg/dL (0.2-1.0) H 05/15/18 04:57 AST 19 Units/L (15-37) 05/15/18 04:57 ALT 23 Units/L (12-78) 05/15/18 04:57 Alkaline Phosphatase 60 Units/L (46-116) 05/15/18 04:57 Total Protein 5.4 g/dL (6.4-8.2) L 05/15/18 04:57 Albumin 3.3 g/dL (3.4-5.0) L 05/15/18 04:57 Globulin 2.1 g/dL (2.5-4.5) L 05/15/18 04:57 Albumin/Globulin Ratio 1.6 Ratio (1.1-2.1) 05/15/18 04:57
[2018-05-15] MEDS: LEXAPRO PO SCH (20:59)
[2018-05-15] MEDS: COLACE CAP 100 MG PO SCH (20:59)
[2018-05-15] MEDS: NEURONTIN TAB 600 MG PO SCH (20:59)
[2018-05-15] MEDS: PREVACID PO SCH (21:23)
[2018-05-16] MEDS: NORCO 5/325 MG TAB PO PRN ×4 (00:51→19:25)
[2018-05-16] MEDS: ROBITUSSIN DM PO SCH ×4 (03:08→21:13)
[2018-05-16] MEDS: CHRONULAC PO SCH ×3 (05:27→21:14)
[2018-05-16] MEDS: FORTAZ or TAZICEF VIAL INJ IVP SCH ×2 (05:27→15:26)
[2018-05-16] MEDS: XOPENEX 1.25 MG/3 ML NEBULE NEB SCH ×4 (09:09→21:05)
[2018-05-16] MEDS: MAGIC MOUTHWASH MT SCH ×4 (09:27→21:14)
[2018-05-16] MEDS: VITAMIN D (1.25MG) PO SCH (09:28)
[2018-05-16] MEDS: ALBUMIN HUMAN 25%- 100 ML 100 ML IV SCH (09:28)
[2018-05-16] MEDS: DIFLUCAN 200 MG IV PREMIX* 200 MG/100 ML BAG IV SCH (09:28)
[2018-05-16] MEDS: PATIENT'S HOME MEDICATION PO SCH ×2 (09:28→21:14)
[2018-05-16] MEDS: K-DUR TAB 20 MEQ PO SCH (09:28)
[2018-05-16] MEDS: PERIACTIN TAB 4 MG PO SCH ×2 (09:29→21:13)
[2018-05-16] MEDS: MILK OF MAGNESIA PO SCH ×2 (09:29→21:19)
[2018-05-16] MEDS: ZYLOPRIM PO SCH (09:29)
[2018-05-16] MEDS: HYDROCHLOROTHIAZIDE 25 MG TAB PO SCH (09:29)
[2018-05-16] MEDS: ALDACTONE TAB 25 MG PO SCH (09:29)
[2018-05-16] MEDS ORDERED: LEXAPRO ONE (20:20)
[2018-05-16] MEDS ORDERED: COLACE CAP 100 MG PO SCH (21:00)
[2018-05-16] MEDS: PREVACID PO SCH (21:13)
[2018-05-16] MEDS: NEURONTIN TAB 600 MG PO SCH (21:13)
[2018-05-16] MEDS: OMNICEF CAP 300 MG PO SCH (21:13)
[2018-05-16] MEDS: LEXAPRO PO SCH (21:13)
[2018-05-17] MEDS: ROBITUSSIN DM PO SCH ×3 (03:13→14:59)
[2018-05-17] MEDS: CHRONULAC PO SCH ×2 (05:29→13:54)
[2018-05-17] MEDS: NORCO 5/325 MG TAB PO PRN (05:44)
[2018-05-17] MEDS ORDERED: DIFLUCAN PO SCH (09:00)
[2018-05-17] MEDS: XOPENEX 1.25 MG/3 ML NEBULE NEB SCH (09:05)
[2018-05-17 09:19] VITALS: BP 125/66
[2018-05-17 11:41] LABS: BASOPHILS % (AUTO) 0.8 % (0.2-1.0); EOSINOPHILS % (AUTO) 1.1 % (0.9-2.9); HEMATOCRIT 34.8 % (36.0-47.0); HEMOGLOBIN 11.4 g/dL (12.0-16.0); LYMPHOCYTES # (AUTO) 0.7 X10^3/uL (1.3-2.9); MEAN CORPUSCULAR HEMOGLOBIN 30.7 pg (27.0-34.0); MEAN CORPUSCULAR HGB CONC 32.6 g/dL (33.0-35.0); MEAN CORPUSCULAR VOLUME 93.9 fL (80.0-100.0); MEAN PLATELET VOLUME 9.1 fL (7.4-11.0); MONOCYTES # (AUTO) 0.8 x10^3/uL (0.3-0.8); MONOCYTES % (AUTO) 19.3 % (0.0-13.0); NEUTROPHILS # (AUTO) 2.7 x10^3/uL (2.2-4.8); NEUTROPHILS % (AUTO) 62.8 % (42.0-75.0); PLATELET COUNT 146 X10^3/uL (150.0-450.0); RED CELL DISTRIBUTION WIDTH 18.5 % (11.6-16.5); WHITE BLOOD COUNT 4.2 X10^3/uL (3.6-10.0)
[2018-05-17 11:47] LABS: AMMONIA 36 umol/L (11-32)
[2018-05-17 11:49] LABS: ALANINE AMINOTRANSFERASE 23 Units/L (12-78); ALBUMIN 3.5 g/dL (3.4-5.0); ALKALINE PHOSPHATASE 69 Units/L (46-116); ASPARTATE AMINO TRANSFERASE 23 Units/L (15-37); BLOOD UREA NITROGEN 8 mg/dL (7-18); CALCIUM 10.7 mg/dL (8.5-10.1); CARBON DIOXIDE 29.7 mmol/L (21-32); CHLORIDE 109 mmol/L (98-107); CREATININE 0.35 mg/dL (0.55-1.02); SODIUM 146 mmol/L (136-145); TOTAL PROTEIN 5.8 g/dL (6.4-8.2); eGFR NON BLACK RACES > 60 (>60)
[2018-05-17] MEDS: K-DUR TAB 20 MEQ PO SCH (13:52)
[2018-05-17] MEDS: OMNICEF CAP 300 MG PO SCH (13:52)
[2018-05-17] MEDS: ALDACTONE TAB 25 MG PO SCH (13:52)
[2018-05-17] MEDS: HYDROCHLOROTHIAZIDE 25 MG TAB PO SCH (13:52)
[2018-05-17] MEDS: ZYLOPRIM PO SCH (13:52)
[2018-05-17] MEDS: PERIACTIN TAB 4 MG PO SCH (13:52)
[2018-05-17] MEDS: VITAMIN D (1.25MG) PO SCH (13:53)
[2018-05-17] MEDS: MAGIC MOUTHWASH MT SCH ×2 (13:53)
[2018-05-17] MEDS: PATIENT'S HOME MEDICATION PO SCH (13:54)
[2018-05-17] MEDS: MILK OF MAGNESIA PO SCH (13:54)
--- NOTE | 2018-06-12 08:12 | DR.UPDATE ---
H&P Update History and Physical Update: WAS ADMITTED TO [facility] FOR ANTIBIOTIC THERAPY AND PHYSICAL THERAPY. A H&P WAS COMPLETED AT THE BEGINNING OF HER LAST VISIT. PATIENT HAS BEEN SEEN AND EXAMINED WITH NO CHANGES NOTED TO H&P. Changes noted: NO Yes with the following:
--- NOTE | 2018-06-16 00:36 | DR.CARTERD ---
- Discharge Summary for: Discharge Summary for Date of:: 05/17/18 - Admission Date Date of Admission: 05/12/18 - Admission Diagnoses Admission Diagnosis: (1) BACTEREMIA - Discharge Date Discharge Date: 05/17/18 - Discharge Diagnoses Discharge Diagnosis: (1) BACTEREMIA - Hospital Course Hospital Course: DAY ONE, MS. AUSTIN WAS ADMITTED TO [facility] FOR ANTIBIOTIC THERAPY AND PHYSICAL THERAPY.CURRENT PLAN OF CARE WAS CONTINUED. WE CONTINUED TO MONITOR PATIENT. DAY TWO, Mrs. Austin was doing well. She was afebrile. Vital signs were stable. We continued with her current care on swing-bed and followed her up in the morning. We based further plans on her clinical course. day three, MS. AUSTIN WAS SWINGBED STATUS FOR BACTEREMIA FOR WHICH SHE WAS RECEIVING IV ANTIBIOTICS. SHE WAS ALSO RECEIVING PHYSICAL THERAPY. TODAY, SHE WAS ALERT AND ORIENTED, LYING IN BED ON MORNING ROUNDS. SHE WAS NOTED WITH A NON-PRODUCTIVE COUGH. SHE REPORTED SHORTNESS OF BREATH AT TIMES. ON EXAM, HEART WAS REGULAR IN RATE AND RHYTHM. BILATERAL LUNGS WERE NOTED WITH DIMINISHED LUNG SOUNDS THROUGHOUT. ABDOMEN WAS ROUND, SOFT, AND NON-TENDER WITH NORMAL BOWEL SOUNDS NOTED IN ALL QUADRANTS. HER VITALS THIS MORNING WERE [id number]%NC-148/85. LABS WERE OBTAINED. ABNORMAL LAB VALUES INCLUDED THE FOLLOWING: RBC 3.30, HGB 10.1, HCT 30.6, CREATININE 0.28, CALCIUM 10.9, TOTAL BILI 1.50, TOTAL PROTEIN 5.4, ALBUMIN 3.3. A CHEST XRAY WAS OBTAINED AND REVEALED: Continued cardiomegaly but now with increasing interstitial changes which may indicate some interstitial edema superimposed on the patient's chronic interstitial lung disease. SHE WAS RECEIVING FORTAZ 1GM IV Q8H, IV DIFLUCAN, AND RESPIRATORY TREATMENTS. WE CONTINUED WITH CURRENT PLAN OF CARE TODAY. WE FOLLOWED UP WITH AM LABS AND CONTINUED TO MONITOR. DAY FIVE, PATIENT SITTING UP IN BED ALERT AND ORIENTED DURING ROUNDS. PATIENT CONTINUED TO VOICE COMPLAINTS OF WEAKNESS. WE DISCUSSED [facility] PLACEMENT FOR REHAB WITH PATIENT AND FAMILY. BOTH ARE IN AGREEMENT WITH PLAN TO DISCHARGE TO [facility] FOR REHAB. VITAL SIGNS WERE STABLE. LABS WERE IN NORMAL RANGE FOR PATIENT. CASE MANAGEMENT HAD PLACEMENT AT [facility] FOR REHAB. WE PLANNED FOR DISCHARGE. INSTRUCTIONS FOR MEDICATIONS AND FOLLOW UP WERE DISCUSSED WITH PATIENT, FAMILY, AND NURSING STAFF AT [facility], ALL VOICED UNDERSTANDING. PATIENT WAS DISCHARGED TO [facility] WITH EMS PERSONNEL IN STABLE CONDITION. - Discharge Medications Discharge Medications: Home Medication List Blood Glucose Check [Otbs (One-Touch Blood Sugar)] 1 ea XX ACHS 05/17/18 [Rx] Nucynta ER 200 mg PO BID #60 tab 05/17/18 [Rx] cefdinir 300 mg PO Q12HR #20 cap 05/17/18 [Rx] dextromethorphan-guaifenesin [Cough Suppressant-Expectorant] 10 ml PO Q6HR PRN ml 05/17/18 [Rx] docusate sodium 200 mg PO HS cap 05/17/18 [Rx] fluconazole 100 mg PO DAILY tab 05/17/18 [Rx] lactulose 15 ml PO TID ml 05/17/18 [Rx] lanolin [Lantiseptic Skin Protectant] 1 applic TOP PRN PRN g 05/17/18 [Rx] levalbuterol HCl 1.25 mg NEB QIDRESP ml 05/17/18 [Rx] lidocaine HCl [Lidocaine Viscous] 5 ml MT QID ml 05/17/18 [Rx] magnesium hydroxide [Milk of Magnesia] 30 ml PO BID PRN ml 05/17/18 [Rx] Prescriptions: Nucynta ER [facility] allopurinol 300 mg PO DAILY 10/16/15 gabapentin 600 mg PO HS 10/16/15 hydroxyzine HCl 50 mg PO HS PRN 10/16/15 cyproheptadine 4 mg PO BID 03/09/17 spironolacton-hydrochlorothiaz 25 mg PO DAILY 03/09/17 ergocalciferol (vitamin D2) 50,000 units PO Q48H 12/01/17 escitalopram oxalate 20 mg PO HS 12/01/17 furosemide 40 mg PO DAILY 12/01/17 meclizine 25 mg PO TID 12/01/17 potassium chloride 20 meq PO DAILY 12/01/17 omeprazole 40 mg PO QDAY PRN #16 cap 02/05/18 promethazine 50 mg PO Q6H PRN #18 tab 02/05/18 lansoprazole 30 mg PO HS 02/25/18 albuterol sulfate [ProAir HFA] 2 puff INHALATION Q4-6H PRN #1 g 02/26/18
== END 2018-05-17 16:25 | DRG 949 ==
LOC: MED/SURG 13:00
PROVIDERS: ADMIT Internal Medicine; ATTEND Internal Medicine
DX: R26.89 Other abnormalities of gait and mobility; R13.11 Dysphagia, oral phase; K73.8 Other chronic hepatitis, not elsewhere classified; E11.65 Type 2 diabetes mellitus with hyperglycemia; J90 Pleural effusion, not elsewhere classified; A40.3 Sepsis due to Streptococcus pneumoniae; J44.1 Chronic obstructive pulmonary disease with (acute) exacerbation; R06.02 Shortness of breath; K74.69 Other cirrhosis of liver; J15.5 Pneumonia due to Escherichia coli; R10.84 Generalized abdominal pain; Z51.89 Encounter for other specified aftercare; R53.1 Weakness; B37.0 Candidal stomatitis; N39.0 Urinary tract infection, site not specified; E87.6 Hypokalemia; R18.8 Other ascites; Z79.2 Long term (current) use of antibiotics
CPT/HCPCS: 36415; 71010; 71045; 80053; 82140; 83735; 85025; 92526; 92610; 93010; 94640; 97110; 97112; 97163; 97167; 97530; 97535; A4222; P9047; J0713; J1450; J2270; J7050